=== PATIENT | female | born 1985 | race African-American/Black ===

== ENCOUNTER 2018-11-28 23:09 | Emergency (ER) | payer BC ==
[2018-11-29 00:17] LABS: Absolute Lymphocytes (CBC) 1.3 K/uL (0.7-4.9); Absolute Monocytes 0.5 K/uL (0.1-1.3); Absolute Neutrophil 4.5 K/uL (1.8-8.0); Basophils % 0.6 % (0-1.3); Eosinophils % 0.7 % (0-4.4); Hematocrit 40.5 % (36.0-45.0); Lymphocytes % 20.6 % (15.3-44.8); MPV 9.7 fL (7.6-11.3); Monocytes % 8.2 % (3.3-12.3); RBC Red Blood Cell Count 4.93 M/uL (3.86-4.86)
[2018-11-29] MEDS ORDERED: NA CHLORIDE 0.9% 1,000 ML ONE (00:27)
[2018-11-29] MEDS ORDERED: PROMETHAZINE 25 MG/ML VIAL ONE (00:27)
[2018-11-29 00:34] LABS: ALT/SGPT 16 U/L (12-78); AST/SGOT 13 U/L (15-37); Albumin 3.6 g/dL (3.4-5.0); Alkaline Phosphatase 60 U/L (45-117); BUN Blood Urea Nitrogen 14 mg/dL (7-18); Bicarbonate 25 mmol/L (21-32); Bilirubin Direct 0.1 mg/dL (0-0.2); Bilirubin Total 0.3 mg/dL (0.2-1.0); Glucose Level 61 mg/dL (74-106); Lipase 134 U/L (73-393); Potassium 4.2 mmol/L (3.5-5.1); Protein, Total 7.3 g/dL (6.4-8.2); Sodium Level 142 mmol/L (136-145)
[2018-11-29] MEDS ORDERED: KETOROLAC 30 MG/ML INJ ONE (00:49)
[2018-11-29 00:51] LABS: Urine Blood NEGATIVE (NEG); Urine Glucose NEGATIVE (NEG); Urine Protein TRACE (NEG); Urine Specific Gravity 1.015 (1.005-1.030); Urine pH 7.5 (5.0-7.0)
[2018-11-29 00:52] LABS: Urine Culture Reflex Order NOT NEEDED
[2018-11-29 00:53] LABS: Urine Amorphous Sediment 2+ /HPF (NONE SEEN); Urine Bacteria 20-50 /HPF (<20); Urine RBC <5 /HPF (NONE SEEN)
--- NOTE | 2018-11-29 01:22 | EDPHYS ---
Physician Documentation [facility] Name: Yolis Whiteside Age: 32 yrs Sex: Female : 1985 Arrival Date: 11/28/2018 Time: 23:12 Bed 8 Private MD: ED Physician Eugene Monterroso HPI: 11/28 23:50 This 32 yrs old Black Female presents to ER via Ambulatory with complaints of Vomiting. snw 23:50 The patient presents to the emergency department with nausea, vomiting, abdominal pain, snw of the left lower quadrant. Onset: The symptoms/episode began/occurred suddenly, last night. Possible causes: unknown. The symptoms are aggravated by nothing. The symptoms are alleviated by nothing. Associated signs and symptoms: Pertinent positives: abdominal pain, fever, nausea, vomiting. Severity of symptoms: At their worst the symptoms were moderate in the emergency department the symptoms are unchanged. The patient has not experienced similar symptoms in the past. The patient has not recently seen a physician. LMP 2 weeks ago. 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 - Social history:: Smoking status: Patient uses tobacco products, vapes, Patient uses alcohol, occasionally. - Ebola Screening: : No symptoms or risks identified at this time. ROS: 23:51 Constitutional: Negative for fever, chills, and weight loss, Eyes: Negative for injury, snw pain, redness, and discharge, ENT: Negative for injury, pain, and discharge, Neck: Negative for injury, pain, and swelling, Cardiovascular: Negative for chest pain, palpitations, and edema, Respiratory: Negative for shortness of breath, cough, wheezing, and pleuritic chest pain, Back: Negative for injury and pain, : Negative for injury, bleeding, discharge, and swelling, MS/Extremity: Negative for injury and deformity, Skin: Negative for injury, rash, and discoloration, Neuro: Negative for headache, weakness, numbness, tingling, and seizure. 23:51 Abdomen/GI: Positive for abdominal pain, nausea and vomiting, of the left lower quadrant. Exam: 23:52 Constitutional: This is a well developed, well nourished patient who is awake, alert, snw and in no acute distress. Head/Face: Normocephalic, atraumatic. Eyes: Pupils equal round and reactive to light, extra-ocular motions intact. Lids and lashes normal. Conjunctiva and sclera are non-icteric and not injected. Cornea within normal limits. Periorbital areas with no swelling, redness, or edema. ENT: Nares patent. No nasal discharge, no septal abnormalities noted. Tympanic membranes are normal and external auditory canals are clear. Oropharynx with no redness, swelling, or masses, exudates, or evidence of obstruction, uvula midline. Mucous membranes moist. Neck: Trachea midline, no thyromegaly or masses palpated, and no cervical lymphadenopathy. Supple, full range of motion without nuchal rigidity, or vertebral point tenderness. No Meningismus. Chest/axilla: Normal chest wall appearance and motion. Nontender with no deformity. No lesions are appreciated. Cardiovascular: Regular rate and rhythm with a normal S1 and S2. No gallops, murmurs, or rubs. Normal PMI, no JVD. No pulse deficits. Respiratory: Lungs have equal breath sounds bilaterally, clear to auscultation and percussion. No rales, rhonchi or wheezes noted. No increased work of breathing, no retractions or nasal flaring. Back: No spinal tenderness. No costovertebral tenderness. Full range of motion. Skin: Warm, dry with normal turgor. Normal color with no rashes, no lesions, and no evidence of cellulitis. MS/ Extremity: Pulses equal, no cyanosis. Neurovascular intact. Full, normal range of motion. Neuro: Awake and alert, GCS 15, oriented to person, place, time, and situation. Cranial nerves II-XII grossly intact. Motor strength 5/5 in all extremities. Sensory grossly intact. Cerebellar exam normal. Normal gait. Psych: Awake, alert, with orientation to person, place and time. Behavior, mood, and affect are within normal limits. 23:52 Abdomen/GI: Inspection: abdomen appears normal, Bowel sounds: normal, Palpation: mild abdominal tenderness, in the left lower quadrant. Vital Signs: 23:41 BP 112 / 77; Pulse 75; Resp 16 S; Temp 97.9(O); Pulse Ox 100% on R/A; Weight 54.43 kg bb (R); Height 5 ft. 7 in. (170.18 cm) (R); Pain 0/10; 11/29 00:30 BP 103 / 78; Pulse 62; Resp 14 S; Temp 97.8(O); Pulse Ox 100% on R/A; cc3 01:15 BP 103 / 71; Pulse 61; Resp 15 S; Temp 97.9(O); Pulse Ox 100% on R/A; cc3 11/28 23:41 Body Mass Index 18.79 (54.43 kg, 170.18 cm) bb MDM: 11/28 23:39 Patient medically screened. snw 11/29 01:24 Data reviewed: vital signs, nurses notes. Data interpreted: Pulse oximetry: on room air snw is 100 %. Interpretation: normal. Counseling: I had a detailed discussion with the patient and/or guardian regarding: the historical points, exam findings, and any diagnostic results supporting the discharge/admit diagnosis, lab results, the need for outpatient follow up, to return to the emergency department if symptoms worsen or persist or if there are any questions or concerns that arise at home. Response to treatment: the patient's symptoms have markedly improved after treatment, patient is well hydrated. Special discussion: Based on the patient's Hx, exam, and Dx evaluation, there is no indication for emergent surgery or inpatient Tx. It is understood by the patient/guardian that if the Sx's persist or worsen they need to return immediately for re-evaluation. Based on the history and exam findings, there is no indication for further emergent testing or inpatient evaluation. I discussed with the patient/guardian the need to see the primary care provider for further evaluation of the symptoms. 11/28 23:53 Order name: Basic Metabolic Panel snw 11/28 23:53 Order name: CBC with Diff snw 11/28 23:53 Order name: Creatinine for Radiology; Complete Time: 00:39 snw 11/28 23:53 Order name: Hepatic Function snw 11/28 23:53 Order name: Lipase; Complete Time: 00:39 snw 11/28 23:53 Order name: Urine Culture snw 11/28 23:53 Order name: Urine Microscopic Only; Complete Time: 01:11 snw 11/28 23:54 Order name: Basic Metabolic Panel; Complete Time: 00:39 EDMS 11/28 23:54 Order name: CBC with Automated Diff EDMS 11/28 23:54 Order name: Liver (Hepatic) Function; Complete Time: 00:39 EDMS 11/29 00:30 Order name: Urine Dipstick--Ancillary (enter results); Complete Time: 01:11 ar5 11/29 00:30 Order name: Urine --Ancillary (enter results); Complete Time: 01:11 ar5 11/28 23:53 Order name: IV Saline Lock; Complete Time: 00:09 snw 11/28 23:53 Order name: Labs collected and sent; Complete Time: 00:09 snw 11/28 23:53 Order name: Urine Test (obtain specimen); Complete Time: 00:29 snw 11/28 23:53 Order name: Urine Dipstick-Ancillary (obtain specimen); Complete Time: 00:29 snw Administered Medications: 00:15 Drug: NS 0.9% 1000 ml Route: IV; Rate: 1 bolus; Site: right antecubital; cc3 01:20 Follow up: Response: No adverse reaction; IV Status: Completed infusion; IV Intake: cc3 1000ml 00:20 Drug: Phenergan 6.25 mg Route: IVP; Site: right antecubital; cc3 01:00 Follow up: Response: No adverse reaction; Nausea is decreased cc3 00:35 Drug: TORadol 30 mg Route: IVP; Site: right antecubital; cc3 01:00 Follow up: Response: No adverse reaction; Pain is decreased; NRS 1/10 cc3 01:20 Drug: Rocephin 1 grams Route: IV; Rate: calculated rate; Site: right antecubital; cc3 01:35 Follow up: Response: No adverse reaction; IV Status: Completed infusion; IV Intake: [id number] Disposition: 11/29/18 01:22 Discharged to Home. Impression: Urinary tract infection, site not specified, Vomiting, unspecified, Volume depletion, unspecified. - Condition is Stable. - Discharge Instructions: Nausea and Vomiting, Adult, Urinary Tract Infection, Adult, Rehydration, Adult. - Prescriptions for Macrobid 100 mg Oral Capsule - take 1 capsule by ORAL route every 12 hours for 10 days; 20 capsule. promethazine 25 mg Oral Tablet - take 1 tablet by ORAL route every 6 hours As needed; 20 tablet. - Work release form, Family Work Release, Medication Reconciliation Form, Thank You Letter, Antibiotic Education, Prescription Opioid Use form. - Follow up: Private Physician; When: 2 - 3 days; Reason: Recheck today's complaints, Continuance of care, Re-evaluation by your physician. Follow up: Emergency Department; When: As needed; Reason: Worsening of condition. Signatures: Dispatcher [employer] EDAZ Beba Lawler, ELIANA-C INSURANCE CLAIM REPRESENTATIVE-Csnw Nessa Yusuf, RN RN bb Sarah El cc3 Corrections: (The following items were deleted from the chart) 01:38 01:22 11/29/2018 01:22 Discharged to Home. Impression: Urinary tract infection, site cc3 not specified; Vomiting, unspecified; Volume depletion, unspecified. Condition is Stable. Forms are Medication Reconciliation Form, Thank You Letter, Antibiotic Education, Prescription Opioid Use. Follow up: Private Physician; When: 2 - 3 days; Reason: Recheck today's complaints, Continuance of care, Re-evaluation by your physician. Follow up: Emergency Department; When: As needed; Reason: Worsening of condition. snw
--- NOTE | 2018-11-29 01:22 | ER ---
Nurse's Notes [facility] Name: Yolis Whiteside Age: 32 yrs Sex: Female : 1985 Arrival Date: 11/28/2018 Time: 23:12 Bed 8 Private MD: Diagnosis: Urinary tract infection, site not specified;Vomiting, unspecified;Volume depletion, unspecified Presentation: 11/28 23:37 Presenting complaint: Patient states: she was feeling bad last night and stayed home bb from work then tonight she went to work and was feeling very hot, dry heaving, shaking and had a headache denies fever, vomiting, diarrhea. Transition of care: patient was not received from another setting of care. Onset of symptoms was November 27, 2018. Risk Assessment: Do you want to hurt yourself or someone else? Patient reports no desire to harm self or others. Initial Sepsis Screen: Does the patient meet any 2 criteria? No. Patient's initial sepsis screen is negative. Does the patient have a suspected source of infection? No. Patient's initial sepsis screen is negative. Care prior to arrival: None. 23:37 Method Of Arrival: Ambulatory bb 23:37 Acuity: MICHAELLE 3 bb Triage Assessment: 23:57 General: Appears in no apparent distress. uncomfortable, Behavior is calm, cooperative, cc3 appropriate for age. Pain: Complains of pain in left lower quadrant. GI: Reports nausea. 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 - Social history:: Smoking status: Patient uses tobacco products, vapes, Patient uses alcohol, occasionally. - Ebola Screening: : No symptoms or risks identified at this time. Screenin:57 Abuse screen: Denies threats or abuse. Denies injuries from another. Nutritional cc3 screening: No deficits noted. Tuberculosis screening: No symptoms or risk factors identified. Fall Risk Ambulatory Aid- None/Bed Rest/Nurse Assist (0 pts). Gait- Normal/Bed Rest/Wheelchair (0 pts) Mental Status- Oriented to own ability (0 pts). Assessment: 23:57 GI: Abdomen is round non-distended. cc3 23:57 General: Appears in no apparent distress. uncomfortable, Behavior is calm, cooperative, cc3 appropriate for age. Pain: Complains of pain in left lower quadrant. Neuro: Level of Consciousness is awake, alert, obeys commands, Oriented to person, place, time, situation, Appropriate for age. Cardiovascular: Denies chest pain, Patient's skin is warm and dry. Respiratory: Airway is patent Respiratory effort is even, unlabored, Respiratory pattern is regular, symmetrical. : No signs and/or symptoms were reported regarding the genitourinary system. EENT: No signs and/or symptoms were reported regarding the EENT system. Derm: No signs and/or symptoms reported regarding the dermatologic system. Musculoskeletal: Circulation, motion, and sensation intact. Range of motion: intact in all extremities. 11/29 00:18 Reassessment: Patient appears in no apparent distress at this time. Patient and/or cc3 family updated on plan of care and expected duration. Pain level reassessed. Patient is alert, oriented x 3, equal unlabored respirations, skin warm/dry/pink. 01:35 Reassessment: Patient appears in no apparent distress at this time. Patient and/or cc3 family updated on plan of care and expected duration. Pain level reassessed. Patient is alert, oriented x 3, equal unlabored respirations, skin warm/dry/pink. SIGN MAKER Beba discharged the patient home with prescription given. IV cannula removed and patient left ER vitally stable and ambulatory with her fiance. Patient denies pain at this time. Patient states feeling better. Patient states symptoms have improved. Vital Signs: 11/28 23:41 BP 112 / 77; Pulse 75; Resp 16 S; Temp 97.9(O); Pulse Ox 100% on R/A; Weight 54.43 kg bb (R); Height 5 ft. 7 in. (170.18 cm) (R); Pain 0/10; 11/29 00:30 BP 103 / 78; Pulse 62; Resp 14 S; Temp 97.8(O); Pulse Ox 100% on R/A; cc3 01:15 BP 103 / 71; Pulse 61; Resp 15 S; Temp 97.9(O); Pulse Ox 100% on R/A; cc3 11/28 23:41 Body Mass Index 18.79 (54.43 kg, 170.18 cm) bb ED Course: 11/28 23:12 Patient arrived in ED. es 23:39 Beba Lawler [facility]C [facility]. snw 23:39 Eugene Monterroso MD is Attending Physician. snw 23:40 Triage completed. bb 23:41 Arm band placed on Patient placed in an exam room, on a stretcher, on pulse oximetry. bb 23:57 Sarah El is Primary Nurse. cc3 23:57 Patient has correct armband on for positive identification. Placed in gown. Bed in low cc3 position. Call light in reach. Side rails up X 1. engine monitor on. Pulse ox on. NIBP on. 06 00:05 Inserted saline lock: 20 gauge in right antecubital area, using aseptic technique. cc3 Blood collected. 01:35 No provider procedures requiring assistance completed. IV discontinued, intact, cc3 bleeding controlled, No redness/swelling at site. Pressure dressing applied. Administered Medications: 00:15 Drug: NS 0.9% 1000 ml Route: IV; Rate: 1 bolus; Site: right antecubital; cc3 01:20 Follow up: Response: No adverse reaction; IV Status: Completed infusion; IV Intake: cc3 1000ml 00:20 Drug: Phenergan 6.25 mg Route: IVP; Site: right antecubital; cc3 01:00 Follow up: Response: No adverse reaction; Nausea is decreased cc3 00:35 Drug: TORadol 30 mg Route: IVP; Site: right antecubital; cc3 01:00 Follow up: Response: No adverse reaction; Pain is decreased; NRS 1/10 cc3 01:20 Drug: Rocephin 1 grams Route: IV; Rate: calculated rate; Site: right antecubital; cc3 01:35 Follow up: Response: No adverse reaction; IV Status: Completed infusion; IV Intake: [id number] Intake: 01:20 IV: 1000ml; Total: 1000ml. cc3 01:35 IV: 10ml; Total: 1010ml. cc3 Outcome: 01:22 Discharge ordered by . snw 01:35 Discharged to home ambulatory, with fiance cc3 01:35 Condition: stable 01:35 Discharge instructions given to patient, Instructed on discharge instructions, follow up and referral plans. medication usage, Demonstrated understanding of instructions, follow-up care, medications, Prescriptions given X 2. 01:38 Patient left the ED. cc3 Signatures: Beba Lawler, PLATE GRINDER-C PLATE GRINDER-Csnw Bia Garcia Brenda, RN RN Sarah Oneal cc3
[2018-11-29] MEDS ORDERED: CEFTRIAXONE/SWI 1gm 1 GM/10 ML SYR ONE (01:32)
== END 2018-11-29 01:38 | disposition home or self-care (01) ==
LOC: ER 23:09
DX: N39.0 Urinary tract infection, site not specified (principal); E86.9 Volume depletion, unspecified; R11.2 Nausea with vomiting, unspecified; Z72.0 Tobacco use
CPT/HCPCS: 36415; 80048; 80076; 81003; 81015; 81025; 83690; 85025; 87086; 87088; 96361; 96374; 96375; 99284; J0696; J2550; J7030

== ENCOUNTER 2019-06-13 08:53 | Emergency (ER) | payer BC ==
--- OUTSIDE RECORDS SUMMARY | 2019-06-13 08:55 | XMS REPORT ---
:1985 [facility] Address [address] [place] [address] [address] [place] [address] Care Team Providers Name Role Phone Unavailable Unavailable Unavailable Problems This patient has no known problems. Allergies, Adverse Reactions, Alerts This patient has no known allergies or adverse reactions. Medications This patient has no known medications.
[2019-06-13 09:34] LABS: Absolute Lymphocytes (CBC) 2.1 K/uL (0.7-4.9); Basophils % 0.7 % (0-1.3); Hematocrit 39.1 % (36.0-45.0); Lymphocytes % 25.9 % (15.3-44.8); MPV 9.3 fL (7.6-11.3)
[2019-06-13 09:54] LABS: Urine Blood 3+ (NEG); Urine Glucose NEGATIVE (NEG); Urine Protein 1+ (NEG); Urine Specific Gravity 1.025 (1.005-1.030); Urine pH 6.5 (5.0-7.0)
[2019-06-13 10:08] LABS: Urine Bacteria 20-50 /HPF (<20)
[2019-06-13 10:09] LABS: Urine Culture Reflex Order REFLEXED
[2019-06-13 10:11] LABS: BUN Blood Urea Nitrogen 12 mg/dL (7-18); Bicarbonate 24 mmol/L (21-32); Glucose Level 86 mg/dL (74-106); HCG, Quantitative 54135 mIU/mL (1-3); Potassium 3.5 mmol/L (3.5-5.1); Sodium Level 136 mmol/L (136-145)
[2019-06-13 10:18] LABS: Urine Mucus 2+ /HPF (NONE SEEN)
--- NOTE | 2019-06-13 10:52 | ER ---
Nurse's Notes [facility] Name: Yolis Whiteside Age: 33 yrs Sex: Female : 1985 Arrival Date: 06/13/2019 Time: 08:54 Bed 14 Private MD: Diagnosis: Threatened ;11 weeks gestation of Presentation: 06/13 09:00 Presenting complaint: Patient states: Light spotting with pink tinge. Denies pain. rb1 Transition of care: patient was not received from another setting of care. Risk Assessment: Do you want to hurt yourself or someone else? Patient reports no desire to harm self or others. Care prior to arrival: None. 09:00 Method Of Arrival: Ambulatory rb1 09: Acuity: MICHAELLE 3 rb1 09:00 Initial Sepsis Screen: Does the patient meet any 2 criteria? No. Patient's initial rb1 sepsis screen is negative. Does the patient have a suspected source of infection? No. Patient's initial sepsis screen is negative. 09:00 Onset of symptoms was June 13, 2019 at 08:30. rb1 Triage Assessment: 09:00 General: Appears uncomfortable, Behavior is calm, cooperative, Denies fever. Pain: rb1 Denies pain. Neuro: Level of Consciousness is awake, alert, obeys commands, Oriented to person, place, time, situation. Cardiovascular: Capillary refill < 3 seconds is brisk in bilateral fingers. Respiratory: Airway is patent Respiratory effort is even, unlabored, Respiratory pattern is regular, symmetrical. GI: No signs and/or symptoms were reported involving the gastrointestinal system. : Reports vaginal bleeding that is light flow, spotty, pink tinge. Derm: Skin is dry, Skin is normal, Skin temperature is warm. 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 - Social history:: Smoking status: Patient uses tobacco products, Vapes. - Ebola Screening: : Patient negative for fever greater than or equal to 101.5 degrees Fahrenheit, and additional compatible Ebola Virus Disease symptoms. Screenin:00 Abuse screen: Denies threats or abuse. Nutritional screening: No deficits noted. rb1 Tuberculosis screening: No symptoms or risk factors identified. Fall Risk None identified. Assessment: 09:00 General: Pt. reports this is her sixth and has miscarried each time.. rb1 10:00 Reassessment: Patient appears in no apparent distress at this time. No changes from rb1 previously documented assessment. 11:00 Reassessment: Patient appears in no apparent distress at this time. Patient and/or rb1 family updated on plan of care and expected duration. Pain level reassessed. Patient is alert, oriented x 3, equal unlabored respirations, skin warm/dry/pink. Patient denies pain at this time. Vital Signs: 09:00 BP 102 / 82; Pulse 89; Resp 15; Temp 97.8(O); Pulse Ox 99% on R/A; Weight 56.7 kg (R); rb1 Height 5 ft. 7 in. (170.18 cm) (R); Pain 0/10; 11:06 BP 103 / 67; Pulse 66; Resp 15; Temp 98.2(O); Pulse Ox 97% on R/A; mh5 09:00 Body Mass Index 19.58 (56.70 kg, 170.18 cm) rb1 Vitals: 11:06 Heart Tones . iw ED Course: 08:54 Patient arrived in ED. as 08:59 Juliane Kerr, RN is Primary Nurse. iw 08:59 Sulema Grimes FNP-C is PHCP. kb 08:59 Jean Garland MD is Attending Physician. kb 09:00 Arm band placed on left wrist. rb1 09:00 Patient has correct armband on for positive identification. Placed in gown. Bed in low rb1 position. Call light in reach. Side rails up X 1. Pulse ox on. NIBP on. Warm blanket given. 09:13 Triage completed. rb1 09:25 Inserted saline lock: 22 gauge in right antecubital area, using aseptic technique. rb1 Blood collected. 10:41 Ultrasound completed. Patient tolerated well. sg3 10:43 US Transvaginal Ob In Process Unspecified. EDMS 11:16 No provider procedures requiring assistance completed. IV discontinued, intact, rb1 bleeding controlled, No redness/swelling at site. Pressure dressing applied. Administered Medications: No medications were administered Outcome: 10:51 Discharge ordered by . sher 11:16 Discharged to home ambulatory, with family. rb1 11:16 Condition: stable 11:16 Discharge instructions given to patient, Instructed on discharge instructions, follow up and referral plans. Demonstrated understanding of instructions, follow-up care, Prescriptions given X none 11:17 Patient left the ED. rb1 Signatures: Dispatcher [employer] EDKS Sulema Grimes, DONALDO MONROY-Lulu Casarez Irene, RN RN Laurie Gayle RN RN rb1 Lyla Burch 5 Doreen Huang 3 Corrections: (The following items were deleted from the chart) 09:37 09:00 Social history: Smoking status: Patient/guardian denies using tobacco, rb1 rb1
--- NOTE | 2019-06-13 10:52 | EDPHYS ---
Physician Documentation [facility] Name: Yolis Whitseide Age: 33 yrs Sex: Female : 1985 Arrival Date: 06/13/2019 Time: 08:54 Bed 14 Private MD: ED Physician Jean Garland HPI: 06/13 11:18 This 33 yrs old Black Female presents to ER via Ambulatory with complaints of Vaginal kb Bleeding, + Preg <12wks. 11:18 The patient presents to the emergency department with vaginal bleeding, that is light. kb The estimated gestational age is 11 weeks. course: care: private OB physician. The patient has not experienced similar symptoms in the past. The patient has not recently seen a physician. 11:29 Previous pregnancies: in previous pregnancies patient has had. Associated signs and kb symptoms: Pertinent positives: vaginal bleeding, Pertinent negatives: abdominal pain, vaginal discharge. Pt reports vaginal bleeding this morning. Reports this is her sixth or seventh and all of the previous pregnancies have ended in spontaneous . . 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 - Social history:: Smoking status: Patient uses tobacco products, Vapes. - Ebola Screening: : Patient negative for fever greater than or equal to 101.5 degrees Fahrenheit, and additional compatible Ebola Virus Disease symptoms. ROS: 11:17 Constitutional: Negative for fever, chills, and weight loss, ENT: Negative for injury, kb pain, and discharge, Neck: Negative for injury, pain, and swelling, Cardiovascular: Negative for chest pain, palpitations, and edema, Respiratory: Negative for shortness of breath, cough, wheezing, and pleuritic chest pain, Abdomen/GI: Negative for abdominal pain, nausea, vomiting, diarrhea, and constipation, Back: Negative for injury and pain, MS/Extremity: Negative for injury and deformity, Skin: Negative for injury, rash, and discoloration, Neuro: Negative for headache, weakness, numbness, tingling, and seizure. 11:17 : Positive for vaginal bleeding. Exam: 11:17 Constitutional: This is a well developed, well nourished patient who is awake, alert, kb and in no acute distress. Head/Face: Normocephalic, atraumatic. ENT: Nares patent. No nasal discharge, no septal abnormalities noted. Tympanic membranes are normal and external auditory canals are clear. Oropharynx with no redness, swelling, or masses, exudates, or evidence of obstruction, uvula midline. Mucous membranes moist. Neck: Trachea midline, no thyromegaly or masses palpated, and no cervical lymphadenopathy. Supple, full range of motion without nuchal rigidity, or vertebral point tenderness. No Meningismus. Chest/axilla: Normal chest wall appearance and motion. Nontender with no deformity. No lesions are appreciated. Cardiovascular: Regular rate and rhythm with a normal S1 and S2. No gallops, murmurs, or rubs. Normal PMI, no JVD. No pulse deficits. Respiratory: Lungs have equal breath sounds bilaterally, clear to auscultation and percussion. No rales, rhonchi or wheezes noted. No increased work of breathing, no retractions or nasal flaring. Abdomen/GI: Soft, non-tender, with normal bowel sounds. No distension or tympany. No guarding or rebound. No evidence of tenderness throughout. Back: No spinal tenderness. No costovertebral tenderness. Full range of motion. Skin: Warm, dry with normal turgor. Normal color with no rashes, no lesions, and no evidence of cellulitis. MS/ Extremity: Pulses equal, no cyanosis. Neurovascular intact. Full, normal range of motion. Neuro: Awake and alert, GCS 15, oriented to person, place, time, and situation. Cranial nerves II-XII grossly intact. Motor strength 5/5 in all extremities. Sensory grossly intact. Cerebellar exam normal. Normal gait. Vital Signs: 09:00 BP 102 / 82; Pulse 89; Resp 15; Temp 97.8(O); Pulse Ox 99% on R/A; Weight 56.7 kg (R); rb1 Height 5 ft. 7 in. (170.18 cm) (R); Pain 0/10; 11:06 BP 103 / 67; Pulse 66; Resp 15; Temp 98.2(O); Pulse Ox 97% on R/A; mh5 09:00 Body Mass Index 19.58 (56.70 kg, 170.18 cm) rb1 MDM: 08:59 Patient medically screened. kb 11:16 Data reviewed: vital signs, nurses notes. Data interpreted: Pulse oximetry: on room air kb is 97 %. Interpretation: normal. Counseling: I had a detailed discussion with the patient and/or guardian regarding: the historical points, exam findings, and any diagnostic results supporting the discharge/admit diagnosis, lab results, radiology results, the need for outpatient follow up, an OB/Gyne specialist, to return to the emergency department if symptoms worsen or persist or if there are any questions or concerns that arise at home. 06/13 09:03 Order name: Quantitative Hcg; Complete Time: 10:16 kb 06/13 09:03 Order name: Abo/rh Typing; Complete Time: 10:07 kb 06/13 09:03 Order name: Basic Metabolic Panel; Complete Time: 10:16 kb 06/13 09:03 Order name: CBC with Diff; Complete Time: 09:39 kb 06/13 09:18 Order name: Urine Microscopic Only; Complete Time: 10:19 kb 06/13 09:19 Order name: Urine Dipstick--Ancillary (enter results); Complete Time: 09:58 kb 06/13 09:03 Order name: Urine Test (obtain specimen); Complete Time: 09:35 kb 06/13 09:03 Order name: IV Saline Lock; Complete Time: 09:34 kb 06/13 09:03 Order name: Labs collected and sent; Complete Time: 09:34 kb 06/13 09:03 Order name: NPO; Complete Time: 09:35 kb 06/13 09:19 Order name: US Transvaginal Ob kb 06/13 09:19 Order name: Urine --Ancillary (enter results); Complete Time: 09:58 kb 06/13 10:10 Order name: Urine Culture EDMS 06/13 10:14 Order name: ABO/RH no charge; Complete Time: 10:16 EDMS 06/13 09:03 Order name: Urine Dipstick-Ancillary (obtain specimen); Complete Time: 09:35 kb Administered Medications: No medications were administered Disposition: 06/13/19 10:51 Discharged to Home. Impression: Threatened , 11 weeks gestation of . - Condition is Stable. - Discharge Instructions: Vaginal Bleeding During , First Trimester, First Trimester of , [id number], Threatened Miscarriage, [id number]. - Medication Reconciliation Form, Thank You Letter, Antibiotic Education, Prescription Opioid Use, Work release form form. - Follow up: Emergency Department; When: As needed; Reason: Worsening of condition. Follow up: Private Physician; When: 2 - 3 days; Reason: Recheck today's complaints, Continuance of care, Re-evaluation by your physician. Addendum: 06/15/2019 10:16 Co-signature as Attending Physician, Jena Garland MD I agree with the assessment and c singleton plan of care. Signatures: Dispatcher [employer] EDSulema Guerin, SHIPS EQUIPMENT ENGINEER-C SHIPS EQUIPMENT ENGINEER-Jean Dumas MD MD cha Barber, Rebecca, RN RN rb1 Corrections: (The following items were deleted from the chart) 06/13 09:37 09:00 Social history: Smoking status: Patient/guardian denies using tobacco, rb1 rb1 11:17 10:51 06/13/2019 10:51 Discharged to Home. Impression: Threatened ; 11 weeks rb1 gestation of . Condition is Stable. Forms are Medication Reconciliation Form, Thank You Letter, Antibiotic Education, Prescription Opioid Use. Follow up: Emergency Department; When: As needed; Reason: Worsening of condition. Follow up: Private Physician; When: 2 - 3 days; Reason: Recheck today's complaints, Continuance of care, Re-evaluation by your physician. kb 11:32 11:29 Pt reports vaginal bleeding this morning. kb kb
--- NOTE | 2019-06-13 11:18 | RAD REPORT ---
EXAM DESCRIPTION: US - Transvaginal OB - 06/13/2019 10:42 am CLINICAL HISTORY: VAGINAL BLEEDING COMPARISON: No comparisons FINDINGS: A single gestational sac is seen within the uterus. The shape of the sac is within normal limits for gestational age. Within the sac is a single pole with crown-rump length of 4.5 cm, c orrelating to estimated gestational age of 11 weeks 0 days. Estimated date of delivery is 01/02/2020. Heart rate is 169 BPM. The placenta is not yet developed due to early gestational age. The maternal adnexa and ovaries are within normal limits. 3.5 cm right ovarian corpus luteal cyst. No rmal Doppler blood flow was demonstrated to both ovaries. IMPRESSION: Single live early intrauterine gestation with estimated gestational age of 11 weeks 0 da ys, ELY 01/02/2020.
[2019-06-13 11:32] VITALS: BP 103/67; TEMP 98.2; O2SAT 97
== END 2019-06-13 11:17 | disposition home or self-care (01) ==
LOC: ER 08:53
DX: O20.0 Threatened abortion (principal); Z3A.11 11 weeks gestation of pregnancy; F17.290 Nicotine dependence, other tobacco product, uncomplicated
CPT/HCPCS: 36415; 76817; 80048; 81003; 81015; 81025; 84702; 85025; 86900; 86901; 87086; 87088; 99284

== ENCOUNTER 2019-11-20 21:10 | Emergency (ER) | payer BC ==
--- OUTSIDE RECORDS SUMMARY | 2019-11-20 21:13 | XMS REPORT ---
:[address] [facility] t Address [address] [place] [address] Care Team Providers Name Role Phone Francis BOOKER, Gaston Attending Clinician Problems This patient has no known problems. Allergies, Adverse Reactions, Alerts This patient has no known allergies or adverse reactions. Medications This patient has no known medications. Procedures This patient has no known procedures. Encounters Start End Encounter Admission Attending Care Care Encounter Source Date/Time Date/Time Type Type Clinicians Facility Department ID 2019-11-18 2019-11-18 Telephone Bonita Blanco [id number] 00:00:00 00:00:00 Gaston Bonilla [id number] [place] [id number] Profess[facility] [phone] nal 134 Building 2019-11-18 2019-11-18 Telephone Bonita Blanco [id number] 00:00:00 00:00:00 Gaston Bonilla [id number] [place] [id number] Professio [phone] nal 134 [facility] Results This patient has no known results.
--- OUTSIDE RECORDS SUMMARY | 2019-11-20 21:14 | XMS REPORT | Summary of Care ---
:1985 Author Organization [facility] Address [address] [place] [address] Care Team Providers Name Role Phone Chadd Goncalves Primary Care Provider Reason for Referral Radiology Services (STAT) Status Reason Specialty Diagnoses / Referred By Referred To Procedures Contact Contact New Request Diagnostic Diagnoses Abdominal pain, right upper quadrant Vanaphan, Radiology Procedures US ABDOMEN COMPLETE CARRIE Garcia [address] [place] [address] Reason for Visit Reason Comments Abdominal Pain Encounter Details Date Type Department Care Team Description 09/29/2019 Telemedicine Visit [facility] Women's Radha Nichols , Abdominal pain, Healthcare- CARRIE right upper [place] [address] (Primary [address]) [address] [place] [phone] Allergies No Known Allergiesdocumented as of this encounter (statuses as of 09/29/2019) Medications Medication Sig Dispensed Refills Start Date End Date Status HNS90-gars Take 1 Dose by 60 Each 8 06/01/2019 Act pedro carb,tjj-KD-zfs-dha mouth daily. 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) 35 mg iron-1 mg -50 mg-300 mg combo pack aspirin 81 mg EC Take 1 tablet by 30 tablet 8 06/16/2019 Active tabletIndications: mouth daily. Supervision of high risk in first trimester doxylamine-pyridoxine, Take 1 tablet by 120 tablet 3 9 Active vit B6, (DICLEGIS) mouth 10-10 mg per SEE-INSTRUCTIONS. tabletIndications: Nausea and vomiting during prior to 22 weeks gestation documented as of this encounter (statuses as of 09/29/2019) Active Problems Problem Noted Date Supervision of high-risk with history of abo rtion in second 08/27/2019 trimester History of spontaneous 06/01/2019 Nausea and vomiting during prior to 22 weeks gestation 06/01/2019 Estimated Date of Delivery Comments Yes 12/29/2019 Based on last menstr ual period of 03/24/2019 (Exact Date) documented as of this encounter (statuses as of 09/29/2019) Resolved Problems Problem Noted Date Resolved Date Threatened , antepartum 06/15/2019 08/27/19 20 BV (bacterial vaginosis) 06/15/2019 07/02/2019 Supervision of high risk in first trimester 201808/27/2019 22 weeks gestation of 06/01/2019 09/18/19 20 documented as of this encounter (statuses as of 09/29/2019) Immunizations Name Administration Dates Next Due Influenza Virus Vaccine Quad .5 mL IM 6+ MO 06/01/2019 06/01/2020 documented as of this encounter Social History Tobacco Use Types Packs/Day Years Used Date Never Smoker Smokeless Tobacco: Current User Comments: Vapes Alcohol Use Drinks/Week oz/Week Comments Not Currently Estimated Date of Delivery Comments Yes 12/29/2019 Based on last menstr ual period of 03/24/2019 (Exact Date) Sex Assigned at Date Recorded Not on file Job Start Date Occupation Industry Not on file Not on file Not on file Travel History Travel Start Travel End No recent travel history available. documented as of this encounter Last Filed Vital Signs Not on filedocumented in this encounter Progress Notes Radha Nichols PA-C - 09/29/2019 1:15 PM CDT TELEHEALTH NOTE -conducted OV via telehealth due to covid-19 crisis- Verbal consent obtained from Patient: Yolis Fisher Stevo for telehealth services provided below. Communication with patient was conducted via Telephone. Location of Patient: Home Location of Provider: Clinic Date of Service: 09/29/2019 Chief Complaint: routine visit HPI: Yolis Whiteside is a 33 year old female here for follow-up after ER visit at [facility] last night.. Denies contractions, vaginal bleeding, LOF, dysuria, or PIH symptoms. + active FM.Patient had C/o RUQ pain, underneath right breast, pain has worsened since last OV. Patient reportspain is radiating to her back. 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 Patient's is concerned and is requesting for a letter to put her on bed rest. Explained to we cannot put her on bed rest but put her on some work restrictions. Can leave letter for work in her my chart. Past Medical History: Diagnosis Date BV (bacterial vaginosis) 06/15/2019 Depression Supervision of high risk in first trimester 06/01/2019 MEDICATIONS: No outpatient medications have been marked as taking for the 09/29/19 encounter (Telemedicine Visit) with Radha Nichols PA-C. ROS Denies fever, chills, chest pain, SOB, constipation, diarrhea, nausea, vomiting. +RUQ abd pain radiating to her back. Pain score: 10/10 TELEHEALTH EXAM Alert and answering/asking questions appropriately ASSESSMENT/ PLAN Yolis Whiteside is a 33 year old female with PMH as above presenting with: 1. Abdominal pain, right upper quadrant - US ABDOMEN COMPLETE; Future Ordered stat. ER PRECAUTIONS GIVEN. See ob summary Discussed about COVID-19/flu precautions. Social distancing, frequent hand washings, and to follow CDC recommendations discussed. Indications for testing discussed. Plan of care, desired health behaviors, goals, Ddx, and any prescribed medications were discussed with the patient. I spent 25 minute(s) conducting this Telehealth encounter with the patient. Education resources and self- management tools were provided is the AVS which is accessible through Runte[employer]. Patient/guardian/family verbalized understanding and agrees to the plan of care. Barriers to care:None. Ability to manage care: Good. If applicable, the [place] [employer] database was accessed to review any controlled substance prescription claims data. If the patient is taking prescribed medications, the [employer] prescription claims data in SkillSlate was reviewed to assess patient compliance with the medication treatment plan After visit summary (AVS ) documentation will be available through Runte[employer] for this encounter. Radha Nichols PA-C 09/29/2019 2:43 PM documented in this encounter Plan of Treatment Date Type Specialty Care Team Description 09/29/2019 Appointment Radiology Radha Nichols PA-C [address] [place] [phone] 10/20/2019 Routine Visit Obstetrics & Blanco, Bonita Feldman MD Gynecology [address] [place] [address]. [facility] [address] [place], [place] [address] Name Type Priority Associated Diagnoses Order S chedule US ABDOMEN COMPLETE IMAGING STAT Abdominal pain, right Expected: 09/29/2019, upper quadrant Expires: 08/31 Health Maintenance Due Date Last Done Comments DTaP,Tdap,and Td Vaccines (1 12/18/1998 - Tdap) PAP SMEAR 06/01/2022 06/01/2019, 03/25/2009 INFLUENZA VACCINE Completed 06/01/2019 PNEUMOCOCCAL 0-64 YEARS Aged Out No longe r eligible based COMBINED SERIES on patient's age to complete this to pic documented as of this encounter Results Not on filedocumented in this encounter Visit Diagnoses Diagnosis Abdominal pain, right upper quadrant - P rimary documented in this encounter Insurance Payer Benefit Plan Subscriber ID Effective Dates Phone Address Type / Group [facility] [id number] 2017-Mali [phone] [address] PPO/POS [place] [employer] t [id number] [place] [address] documented as of this encounter
--- OUTSIDE RECORDS SUMMARY | 2019-11-20 21:14 | XMS REPORT | Summary of Care ---
:1985 Author Organization [facility] Address [address] [place] [address] Care Team Providers Name Role Phone Chadd Goncalves Primary Care Provider Reason for Referral Radiology Services (STAT) Status Reason Specialty Diagnoses / Referred By Referred To Procedures Contact Contact New Request Diagnostic Diagnoses Abdominal pain, right upper quadrant Vanaphan, Radiology Procedures US ABDOMEN COMPLETE CARRIE Garcia [address] [place] [address] Reason for Visit Reason Comments Abdominal Pain Encounter Details Date Type Department Care Team Description 09/29/2019 Telemedicine Visit [facility] Women's Radha Nichols , Abdominal pain, Healthcare- CARRIE right upper [place] [address] ([address]) [address] [place] [phone] Allergies No Known Allergiesdocumented as of this encounter (statuses as of 09/29/2019) Medications Medication Sig Dispensed Refills Start Date End Date Status [id number] Take 1 Dose by 60 Each 8 06/01/2019 Act pedro carb,pjg-PK-ord-dha mouth daily. 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) 35 mg iron-1 [...] here for follow-up [facility].. Denies contractions, vaginal bleeding, LOF, dysuria, or PIH symptoms. + active FM.Patient had C/o RUQ pain, underneath right breast, pain has worsened since last OV. Patient reportspain is radiating to her back. 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 Patient's is concerned and is requesting for [...] is the AVS which is accessible through MoboTap. Patient/guardian/family verbalized understanding and agrees to the plan of care. Barriers to care:None. Ability to manage care: Good. If applicable, the [place] [employer] database was accessed to review any controlled substance prescription claims data. If the patient is taking prescribed medications, the [employer] prescription claims data in Beta Dash was reviewed to assess patient compliance with the medication treatment plan After visit summary (AVS ) documentation will be available through MoboTap for this encounter. Radha Nichols PA-C 09/29/2019 2:43 PM documented in this encounter Plan of Treatment Date Type Specialty Care Team Description 10/20/2019 Routine Obstetrics & Blanco, Bonita Feldman MD Visit Gynecology [address] [place] [address] [address] [place], [place] [address] [phone] Name Type Priority Associated Diagnoses Order S [...] on patient's age to complete this to [facility] documented as of this encounter Results Not on filedocumented in this encounter Visit Diagnoses Diagnosis Abdominal pain, right upper quadrant - P rimary documented in this encounter Insurance Payer Benefit Plan Subscriber ID Effective Dates Phone Address Type / Group [facility] [employer] [id number] 2017-Mali [phone] [address] PPO/POS [place] SELECT t [id number] [place] [address] documented as of this encounter
--- OUTSIDE RECORDS SUMMARY | 2019-11-20 21:14 | XMS REPORT | Summary of Care ---
:1985 Author Organization [facility] Address [address] [place] [address] Care Team Providers Name Role Phone Ivanna Chadd Primary Care Provider Reason for Referral Radiology Services (STAT) Status Reason Specialty Diagnoses / Referred By Referred To Procedures Contact Contact Closed Diagnostic Diagnoses Abdominal pain, right upper quadrant Radha Nichols, Radiology Procedures US ABDOMEN COMPLETE PA-C [address] [address] Reason for Visit Radiology Services (STAT) Status Reason Specialty Diagnoses / Referred By Referred To Procedures Contact Contact Closed Diagnostic Diagnoses Abdominal pain, right upper quadrant Radha Nichols, Radiology Procedures US ABDOMEN COMPLETE PA-C [address] [address] Encounter Details Date Type Department Care Team Description 09/29/2019 Hospital Encounter On license of [facility] Rosi Nichols y, Bari Rae Ultrasound PA-C [address] [place] [address] [phone] [place] [address] Allergies No Known Allergiesdocumented as of this encounter (statuses as of 09/30/2019) Medications Medication Sig Dispensed Refills Start Date End Date Status [id number] Take 1 Dose by 60 Each 8 06/01/2019 Act pedro carb,xgi-MD-vpa-dha mouth daily. 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) 35 mg iron-1 [...] as of this encounter (statuses as of 09/30/2019) Active Problems Problem Noted Date Supervision of high-risk with history of abo rtion in second 08/27/2019 trimester History of spontaneous 06/01/2019 Nausea and vomiting during prior to 22 weeks gestation 06/01/2019 Estimated Date of Delivery Comments Yes 12/29/2019 Based on last menstr ual period of 03/24/2019 (Exact Date) documented as of this encounter (statuses as of 09/30/2019) Resolved Problems Problem Noted Date Resolved Date Threatened , antepartum 06/15/2019 08/27/19 20 BV (bacterial vaginosis) 06/15/2019 07/02/2019 Supervision of high risk in first trimester 201808/27/2019 22 weeks gestation of 06/01/2019 09/18/19 20 documented as of this encounter (statuses as of 09/30/2019) Immunizations Name Administration Dates Next Due Influenza [...] Signs Not on filedocumented in this encounter Plan of Treatment Date Type Specialty Care Team Description 10/20/2019 Routine Obstetrics & Blanoc, Bonita Feldman MD Visit Gynecology [address] [place] [address] DR. Wheat [place], [facility] 15 [phone] Health Maintenance Due Date Last Done Comments DTaP,Tdap,and Td Vaccines (1 12/18/1998 - Tdap) PAP SMEAR 06/01/2022 06/01/2019, 03/25/2009 INFLUENZA VACCINE Completed 06/01/2019 PNEUMOCOCCAL 0-64 YEARS Aged Out No longe r eligible based COMBINED SERIES on patient's age to complete this to [facility] documented as of this encounter Procedures Procedure Name Priority Date/Time Associated Diagnosis Comme nts US ABDOMEN COMPLETE STAT 09/29/2019 4:59 PM Abdominal pain , Results for this CDT right upper quadrant procedu re are in the results section. documented in this encounter Results US ABDOMEN COMPLETE (09/29/2019 4:59 PM CDT) Specimen Narrative Performed At HISTORY: Right upper quadrant Abdominal pain. PACS/VR/DOSE TECHNIQUE: Upper abdominal organs were e valuated in multiple planes with the patient in multiple different positi ons, without and with color imaging. FINDINGS: Liver is 16.1 cm, spleen is not visualized, right kidney is 11.4 x 6.0 x 5.4 cm and left kidney is 9.8 x 5.6 x 4.8 cm in size. No focal lesions are detected in these organs. Cortex of both k idneys range between 18 mm and 19 mm. No hydronephrosis, free fluid in the upper abdomen or aortic aneurysm detected. Visualized por tions of the pancreas appear normal. Hepatic and portal venous system appear patent, with hepatopetal portal flow noted. Gallbladder appears to be of normal size and shape with no edema or thickening of the mishra. Biliary sludge and several biliary crystals are seen in the gallbladder lumen. No definite gallstone i s confirmed. Common hepatic duct is 4.2 mm. CONCLUSIONS: 1. Biliary sludge and biliary crystals d etected in the gallbladder lumen which could be secondary to an d/or a sign of dysfunctioning gallbladder. No signs of acute cholecyst itis. 2. Spleen is either absent or very small in size and could not be visualized by ultrasound. Procedure Note [facility], Radiant Results Inft User - 2019 5:04 PM CDT HISTORY: Right upper quadrant Abdominal pain. TECHNIQUE: Upper abdominal organs were e valuated in multiple planes with the patient in multiple different positi ons, without and with color imaging. FINDINGS: Liver is 16.1 cm, spleen is no t visualized, right kidney is 11.4 x 6.0 x 5.4 cm and left kidney is 9.8 x 5.6 x 4.8 cm in size. No focal lesions are detected in these organs. Co rtex of both kidneys range between 18 mm and 19 mm. No hydronephrosis, free fluid in the upper abdomen or aortic aneurysm detected. Visualized por tions of the pancreas appear normal. Hepatic and portal venous system appear patent, with hepatopetal portal flow noted. Gallbladder appears to be of normal size and shape with no edema or thickening of the mishra. Biliary sludge and several biliary crystals are seen in the gallbladder lumen. No defini te gallstone is confirmed. Common hepatic duct is 4.2 mm. CONCLUSIONS: 1. Biliary sludge and biliary crystals d etected in the gallbladder lumen which could be secondary to an d/or a sign of dysfunctioning gallbladder. No signs of acute cholecyst itis. 2. Spleen is either absent or very small in size and could not be visualized by ultrasound. Performing Organization Address City/State/Zipcode Phone Number PACS/VR/DOSE documented in this encounter Visit Diagnoses Diagnosis Abdominal pain, right upper quadrant documented in this encounter Insurance Payer Benefit Plan Subscriber ID Effective Dates Phone Address Type / Group [facility] zkipster [id number] 2017-Mali [phone] [address] PPO/POS [place] [employer] t 7 [id number] [place] [address] documented as of this encounter
--- OUTSIDE RECORDS SUMMARY | 2019-11-20 21:15 | XMS REPORT | Summary of Care ---
:[address] [facility] Address [address] [place] [address] Care Team Providers Name Role Phone Chadd Goncalves Primary Care Provider Reason for Visit Reason Comments Referral/consult Encounter Details Date Type Department Care Team Description 09/30/2019 Telephone ACCESS CENTER Radha Nichols PA-C Referral/consult [address] [facility] [address] [place] [address] [place] [address] [place] [address] Allergies No Known Allergiesdocumented as of this encounter (statuses as of 09/30/2019) Medications Medication Sig Dispensed Refills Start Date End Date Status [id number] Take 1 Dose by 60 Each 8 06/01/2019 Act pedro carb,krl-VW-cuw-dha mouth daily. 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) 35 mg iron-1 [...] & Blanco, Bonita Feldman MD Visit Gynecology [address] [place] [address] DR. Wheat [place] [id number] 15 [phone] Health Maintenance Due Date Last Done Comments DTaP,Tdap,and Td Vaccines (1 12/18/1998 - Tdap) PAP SMEAR 06/01/2022 06/01/2019, 03/25/2009 INFLUENZA VACCINE Completed 06/01/2019 PNEUMOCOCCAL 0-64 YEARS Aged Out No longe r eligible based COMBINED SERIES on patient's age to complete this to pic documented as of this encounter Results Not on filedocumented in this encounter Insurance Payer Benefit Plan Subscriber ID Effective Dates Phone Address Type / Group [facility] [employer] [id number] 2017-Mali [phone] [address] PPO/POS [place] [employer] t 7 [id number] [place] [address] documented as of this encounter
--- OUTSIDE RECORDS SUMMARY | 2019-11-20 21:15 | XMS REPORT | Summary of Care ---
:1985 Author Organization [facility] Address [address] [place] [address] Care Team Providers Name Role Phone Goncalves Chadd Primary Care Provider Reason for Visit Reason Comments Abdominal Pain (JOSH) Status Reason Specialty Diagnoses / Referred By Referred To Procedures Contact Contact Authorized Surgery Diagnoses Abdominal pain, right upper quadrant Biliary sludge determined by ultrasound 27 weeks gestation of Radha Nichosl, Neelam Samuels, Procedures CONSULT/REFERRAL GENERAL SURGERY Preferred Location: ([facility]) [facility] [address] [place] [address] [address] [place] [address] Phone: Fax: Encounter Details Date Type Department Care Team Description 10/01/2019 Telemedicine Visit [facility] Surgical Lore Samuels ighalie upper quadrant abdominal pain (Primary Dx); Specialties - MD Neelam Biliary sludge; [address] and not yet deliver ed in third trimester [address] [place] [address], [address] [place] [id number] Allergies No Known Allergiesdocumented as of this encounter (statuses as of 10/05/2019) Medications Medication Sig Dispensed Refills Start Date End Date Status [id number]-rjtj Take 1 Dose by 60 Each 8 06/01/2019 Act pedro carb,kto-JZ-pcx-dha mouth daily. 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) 35 mg iron-1 [...] as of this encounter (statuses as of 10/05/2019) Active Problems Problem Noted Date Supervision of high-risk with history of abo rtion in second 08/27/2019 trimester History of spontaneous 06/01/2019 Nausea and vomiting during prior to 22 weeks gestation 06/01/2019 Estimated Date of Delivery Comments Yes 12/29/2019 Based on last menstr ual period of 03/24/2019 (Exact Date) documented as of this encounter (statuses as of 10/05/2019) Resolved Problems Problem Noted Date Resolved Date Threatened , antepartum 06/15/2019 08/27/19 20 BV (bacterial vaginosis) 06/15/2019 07/02/2019 Supervision of high risk in first trimester 201808/27/2019 22 weeks gestation of 06/01/2019 09/18/19 20 documented as of this encounter (statuses as of 10/05/2019) Immunizations Name Administration Dates Next Due Influenza [...] on filedocumented in this encounter Progress Notes Neelam Samuels MD - 10/01/2019 2:45 PM CDT GENERAL SURGERY TELEHEALTH CLINIC NOTE Verbal consent obtained from Patient: Yolis Whiteside for telehealth services provided below. Communication with patient was conducted via Telephone. Location of Patient: Home Location of Provider: [facility] Date of Service: 10/01/2019 Reason for Visit / Chief Complaint: RUQ pain History of Present Illness: Yolis Whiteside is a 33 year old female 7 months , withPMHx as below who presents for evaluation due to RUQ abdominal pain. She complains of intermittent pain below her right breast, sometimes but not always associated with meals, happens every day, it is sharp, colicky, and it radiates around her side to her back. The pain lasts for approximately 2 hours, after which it usually resolves spontaneously. She has tried oral medications with no improvement in symptoms. Associated with nausea and dry heaving. She is currently able to tolerate an oral diet. The patient's diet consists mostly of sandwiches with wheat bread, but is trying to stay away from fast foods. Abdominal US showed biliary sludge and biliary crystals, but no evidence of acute cholecystitis. Past Medical History: Past Medical History: Diagnosis Date BV (bacterial vaginosis) 06/15/2019 Depression Supervision of high risk in first trimester 06/01/2019 Past Surgical History: No past surgical history on file. Allergies: No Known Allergies Medications: Patient's Medications START taking these medications No medications on file CONTINUE taking these medications which have NOT CHANGED ASPIRIN 81 MG EC TABLET Take 1 tablet by mouth daily. DOXYLAMINE-PYRIDOXINE, VIT B6, (DICLEGIS) 10-10 MG PER TABLET Take 1 tablet by mouth SEE-INSTRUCTIONS. [id number]-OQWB CARB,CQK-TO-LES-DHA 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) 35 MG IRON-1 MG -50 MG-300 MG COMBO PACK Take1 Dose by mouth daily. START taking Modified Medications as Prescribed No medications on file STOP taking these medications No medications on file Current Outpatient Medications Medication Sig Dispense Refill aspirin 81 mg EC tablet Take 1 tablet by mouth daily. 30 tablet 8 doxylamine-pyridoxine, vit B6, (DICLEGIS) 10-10 mg per tablet Take 1 tablet by mouth SEE-INSTRUCTIONS. 120 tablet 3 IVM11-zztu carb,btv-CH-kzz-dha 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) 35 mg iron-1 mg -50 mg- 300 mg combo pack Take1 Dose by mouth daily. 60 Each 8 No current facility-administered medications for this visit. Family History: Family History Problem Relation Age of Onset Arthritis Mother Hypertension Father Neurological Father CVA Arthritis Brother Arthritis Maternal Grandmother High cholesterol Maternal Grandmother Asthma NoFHx defects NoFHx Genetic NoFHx Breast Cancer NoFHx Colon Cancer NoFHx Ovarian Cancer NoFHx Uterine Cancer NoFHx Cancer NoFHx Depression NoFHx Psychiatry NoFHx Diabetes NoFHx Heart NoFHx Mental retardation NoFHx Osteoporosis NoFHx Social History: Social History Socioeconomic History Marital status: Spouse name: Not on file Number of children: Not on file Years of education: Not on file Highest education level: Not on file Occupational History Not on file Social Needs Financial resource strain: Not on file Food insecurity: Worry: Not on file Inability: Not on file Transportation needs: Medical: Not on file Non-medical: Not on file Tobacco Use Smoking status: Never Smoker Smokeless tobacco: Current User Tobacco comment: Vapes Substance and Sexual Activity Alcohol use: Not Currently Drug use: Never Sexual activity: Yes Partners: Male control/protection: None Lifestyle Physical activity: Days per week: Not on file Minutes per session: Not on file Stress: Not on file Relationships Social connections: Talks on phone: Not on file Gets together: Not on file Attends amish service: Not on file Active member of club or organization: Not on file Attends meetings of clubs or organizations: Not on file Relationship status: Not on file Intimate partner violence: Fear of current or ex partner: Not on file Emotionally abused: Not on file Physically abused: Not on file Forced sexual activity: Not on file Other Topics Concern Not on file Social History Narrative Yarsani preference - Sikhism No exposure to cats Denies domestic violence or abuse Review of Systems: A 14 point ROS was obtained, only positive responses are in BOLD Constitutional: Fever, chills, loss of appetite, fatigue, unexplained weight loss, unexplained weight gain, weakness Head/Ears/Nose/Mouth/Throat: Head: Headache, head injury, neck pain, neck stiffness Ears: Ear discharge, hearing loss, ear pain, tinnitus Nose: Nose bleeds, sinus congestion, runny nose, postnasal drip, sneezing, sinus pressure Mouth: Dental problems, mouth sores, sore tongue, dry mouth Throat: Sore throat, trouble swallowing, voice change Eyes: Discharge, itching, pain, redness, pain, vision disturbance, blurred vision, vision loss, cataracts, glaucoma CV: Chest pain, palpitations, arrhythmias, dyspnea on exertion, othopnea, claudication, edema, coronary artery disease/history of CA Respiratory: Cough, sputum production, hemoptysis, wheezing, shortness of breath, sleep apnea GI: Dysphagia, abdominal pain, abdominal distention, indigestion, nausea, vomiting, diarrhea, constipation, hematemesis, blood in stool or dark stool, rectal bleeding, rectal pain, jaundice : Frequency, urgency, pain or burning with urination, flank pain, hematuria, incontinence, change in urinary stream, discharge, bleeding, pelvic pain, irregular menses Musculoskeletal: Muscle pain, joint pain, joint swelling, back pain, stiffness, weakness, limitationof motion, arthritis, trauma Integumentary/Breast: Integumentary: Rash, itching, pigmented lesions, lumps, tenderness, swelling, wound Breast: Pain, lumps, nipple discharge, skin changes Neurological: Weakness, sensory changes, syncope, seizures, headache, numbness, tingling, tremor, trauma Hematologic/Lymphatic: Hematologic: Bleeding tendency, easy bruising, history of blood clots, anticoagulation/antiplatelet therapy Lymphatic: Lymphadenopathy Endocrine: Polyuria, polydipsia, polyphagia, heat or cold intolerance, hair loss, appetite changes Allergic/Immunologic: Allergic: Allergic reactions Immunologic: Recurrent infections Psychiatric: Agitation, confusion, decreased concentration, hallucinations, anxiety, self-injury, sleep disturbance, suicidal ideation TELEHEALTH Exam: An examination was not performed over the telephone Constitutional: Awake, alert, oriented, in no acute distress Psychiatric: Appropriate mood and affect, no obvious deficits of insight or judgment Labs: CBC WBC x10^3 (/CMM) Date Value 03/25/2009 6.1 WBC (10*3/L) Date Value 06/09/2019 8.00 RBC x10^6 (/CMM) Date Value 03/25/2009 5.01 RBC (10*6/L) Date Value 06/09/2019 4.97 PLT x10^3 (/CMM) Date Value 03/25/2009 156 PLT (10*3/L) Date Value 06/09/2019 171 HGB Date Value 06/09/2019 13.2 g/dL 03/25/2009 13.3 G/DL HCT (%) Date Value 06/09/2019 41.4 03/25/2009 41.0 BMP No results found for: NA, K, CA, CL, BUN, CREAT, GLU, TCO2 Hepatic Function Panel No results found for: ALB, TPRO, BILIT, BILIUNCON, BILICONJ, ALT, AST, ALKPHOS Microbiology: There are no current results on file for these tests and/or test for 1 year. There are no current results on file for these tests and/or test for 1 year. Radiology: No results found for this visit on 10/01/19. Assessment: Yolis Whiteside is a 33 year old female, 7 months , with signs and symptoms consistent with biliary colic. Plan: - Will obtain further labs (CMP, CBC). Will contact patient with results once available. - Recommend limiting greasy, spicy foods - Can take OTC Tylenol for pain - Recommend elective laparoscopic cholecystectomy after delivery, with dietary modifications to control symptoms for now. Will provide patient with hand-out for diet recommendations. - Advised patient to present to ED if she develops fever, persistent abdominal pain, intractable nausea/vomiting. After visit summary (AVS ) documentation will be available through [email or web address] for this encounter. A total of 30 minutes was spent on the Telephone with the patient. Riley Calloway MD General Surgery PGY-2 Attending Attestation: I personally evaluated and examined the patient on 10/01/[address] Pedraza's note as written. I actively participated in the decision-making process. Please see the resident's note for additional details. 33 YEAR-OLD F approximately 28 weeks referred by CRUTCHING [employer]OR for abdominal pain. She reports "pain under my right breast". The pain is sharp in nature and radiates around to her back. She reports the pain can occur after eating and she is frequently nauseated with the pain. She isable to eat without vomiting. She had an U/S done which demonstrated biliary sludge with crystals within the gallbladder without cholecystitis. Labs were not obtained. Recommend obtaining CBC and CMP and initiating a low fat diet. The patient will get her labs done tomorrow and cigar packer and picker low fat diet recommendations from my office. I would prefer to manage her nonoperatively with dietary changes duringthe remainder of her , then consider cholecystectomy after delivery. If her symptoms persist to where she is unable to eat or if she develops cholecystitis, then will consider surgery. Neelam Samuels M.D. 10/05/2019 14:34 documented in this encounter Plan of Treatment Date Type Specialty Care Team Description 10/20/2019 Routine Obstetrics & Blanco, Bonita Feldman MD Visit Gynecology [address] [place] [address] DR. Wheat [place], [place] [address] [phone] Health Maintenance Due Date Last Done Comments DTaP,Tdap,and Td Vaccines (1 12/18/1998 - Tdap) PAP SMEAR 06/01/2022 06/01/2019, 03/25/2009 INFLUENZA VACCINE Completed 06/01/2019 PNEUMOCOCCAL 0-64 YEARS Aged Out No longe r eligible based COMBINED SERIES on patient's age to complete this to [facility] documented as of this encounter Results COMP. METABOLIC PANEL (80011) (10/02/2019 9:43 AM CDT) Pathologist Sig nature NA 137 135 - 145 mmol/L [facility] K 4.0 3.5 - 5.0 mmol/L [facility] CL 103 98 - 108 mmol/L [facility] CO2 TOTAL 25 23 - 31 mmol/L [facility] AGAP 9 2 - 16 [facility] BUN 15 7 - 23 mg/dL [facility] GLUCOSE 101 70 - 110 mg/dL [facility] CREATININE 0.54 0.50 - 1.04 [facility] mg/dL [facility] TOTAL BILI 0.1 0.1 - 1.1 mg/dL [facility] CALCIUM 9.4 8.6 - 10.6 mg/dL [facility] T PROTEIN 6.4 6.3 - 8.2 g/dL [facility] ALBUMIN 3.7 3.5 - 5.0 g/dL [facility] ALK PHOS 40 34 - 122 U/L [facility] ALTv 34 5 - 35 U/L [facility] AST(SGOT) 30 13 - 40 U/L [facility] eGFR Calculation 131.7 mL/min/1.73m2 [facility] (Non-) [facility] Y eGFR Calculation 159.6 mL/min/1.73m2 [facility] () [facility] Specimen Blood Narrative Performed At Association of Glomerular Filtration Rate (GFR) [facility] and Staging of Kidney Disease* + + +- + | GFR (mL/min/1.73 m2) | With Kidney Damage | Without Kidney Damage + + +- + | >90 | Stage one | Normal + + +- + | 60-89 | Stage two | Decreased GFR + + +- + | 30-59 | Stage three | Stage three + + +- + | 15-29 | Stage four | Stage four + + +- + | <15 (or dialysis) | Stage five | Stage five + + +- + *Each stage assumes the associated GFR level has been in effect for at least three months. Stages 1 to 5, with or without kidney disease, indicate chronic kidney disease. Notes: Determination of stages one and two (with eGFR >59mL/min/1.73 m2) requires estimation of kidney damage for at least three months as defined by structural or functional abnormalities of the kidney, manifested by either: Pathological abnormalities or Markers of kidney damage (including abnormalities in the composition of the blood or urine or abnormalities in imaging tests). Performing Organization Address City/State/Zipcode Phone Number [facility] CLIA: [id number], [address] [place], [place] [address] [facility] documented in this encounter Visit Diagnoses Diagnosis Right upper quadrant abdominal pain - Pr imary Abdominal pain, right upper quadrant Biliary sludge Other specified disorders of biliary tra ct and not yet delivered in third trimester documented in this encounter Insurance Payer Benefit Plan Subscriber ID Effective Dates Phone Address Type / Group [id number] 2017-Mali [phone] [address] PPO/POS [place] [employer] t 7 [id number] [place] [address] documented as of this encounter
--- OUTSIDE RECORDS SUMMARY | 2019-11-20 21:15 | XMS REPORT | Summary of Care ---
:1985 Author Organization [facility] Address [address] [place] [address] Care Team Providers Name Role Phone Chadd Goncalves Primary Care Provider Reason for Referral (JOSH) Status Reason Specialty Diagnoses / Referred By Referred To Procedures Contact Contact New Request Surgery Diagnoses Abdominal pain, right upper quadrant Biliary sludge determined by ultrasound 27 weeks gestation of Radha Nichols Humphrey, [place], Procedures CONSULT/REFERRAL GENERAL SURGERY Preferred Location: (chance) CARRIE BOOKER [address] [place] [address] 2240 [facility] [address] [place] [address] Phone: Fax: Reason for Visit Reason Comments Abdominal Pain Encounter Details Date Type Department Care Team Description 09/30/2019 Case Management [facility] Radha Nichols A bdominal Pain [facility] [place] PA-C [address] [place] [address], [facility] [address] [place] [address] [address] [place] [address] Allergies No Known Allergiesdocumented as of this encounter (statuses as of 09/30/2019) Medications Medication Sig Dispensed Refills Start Date End Date Status [id number] Take 1 Dose by 60 Each 8 06/01/2019 Act pedro carb,fap-UM-unr-dha mouth daily. 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) 35 mg iron-1 [...] Feldman MD Visit Gynecology [address] [place] [address] [address]. Wheat [place] [id number] 15 [phone] Health Maintenance Due Date Last Done Comments [...] pain, right upper quadrant - P rimary Biliary sludge determined by ultrasound 27 weeks gestation of state, incidental documented in this encounter Insurance Payer Benefit Plan Subscriber ID Effective Dates Phone Address Type / Group [facility] [id number] 2017-Mali [phone] [address] PPO/POS [facility] t 7 [id number] [place] [address] documented as of this encounter
--- OUTSIDE RECORDS SUMMARY | 2019-11-20 21:15 | XMS REPORT | Summary of Care ---
:1985 Author Organization [facility] Address [address] [place] [address] Care Team Providers Name Role Phone Chadd Goncalves Primary Care Provider Reason for Visit Reason Comments LAB Encounter Details Date Type Department Care Team Description 10/02/2019 Job Analysis Manager Visit [facility] Mayuri Samuels MD [address] [facility] [address] [place] [address] Supervision of high-risk with history of in second trimester; Professional Office 2, Adc Lab Right upper quadrant abdominal pain Building Phlebotomy Lab Professional Office Building [address] [facility] , [address] [place] [address] Allergies No Known Allergiesdocumented as of this encounter (statuses as of 10/02/2019) Medications Medication Sig Dispensed Refills Start Date End Date Status ALX32-eput Take 1 Dose by 60 Each 8 06/01/2019 Act pedro carb,rff-BA-aov-dha mouth daily. 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) 35 mg iron-1 [...] as of this encounter (statuses as of 10/02/2019) Active Problems Problem Noted Date Supervision of high-risk with history of abo rtion in second 08/27/2019 trimester History of spontaneous 06/01/2019 Nausea and vomiting during prior to 22 weeks gestation 06/01/2019 Estimated Date of Delivery Comments Yes 12/29/2019 Based on last menstr ual period of 03/24/2019 (Exact Date) documented as of this encounter (statuses as of 10/02/2019) Resolved Problems Problem Noted Date Resolved Date Threatened , antepartum 06/15/2019 08/27/19 20 BV (bacterial vaginosis) 06/15/2019 07/02/2019 Supervision of high risk in first trimester 201808/27/2019 22 weeks gestation of 06/01/2019 09/18/19 20 documented as of this encounter (statuses as of 10/02/2019) Immunizations Name Administration Dates Next Due Influenza [...] & Blanco, Bonita Feldman MD Visit Gynecology [address] [place] [address] [address] Wheat [place] [address] 15 [phone] Name Type Priority Associated Diagnoses Order S chedule CBC WITH DIFFERENTIAL LAB Routine Right upper quadran t Ordered: 10/02/2019 abdominal pain CBC WITH DIFFERENTIAL LAB Routine Supervision of high -risk Ordered: 10/02/2019 with history of in second trimester Health Maintenance Due Date Last Done Comments DTaP,Tdap,and Td Vaccines (1 12/18/1998 - Tdap) PAP SMEAR 06/01/2022 06/01/2019, 03/25/2009 INFLUENZA VACCINE Completed 06/01/2019 PNEUMOCOCCAL 0-64 YEARS Aged Out No longe r eligible based COMBINED SERIES on patient's age to complete this to [facility] documented as of this encounter Results Not on filedocumented in this encounter Visit Diagnoses Diagnosis Supervision of high-risk with history of in second trimester Right upper quadrant abdominal pain Abdominal pain, right upper quadrant documented in this encounter Insurance Payer Benefit Plan Subscriber ID Effective Dates Phone Address Type / Group [facility] [id number] 2017-Mali [phone] [address] PPO/POS [place] [employer] t 7 [id number] [place] [address] documented as of this encounter
--- OUTSIDE RECORDS SUMMARY | 2019-11-20 21:15 | XMS REPORT | Summary of Care ---
:1985 Author Organization [facility] Address [address] [place] [address] Care Team Providers Name Role Phone Chadd Goncalves Primary Care Provider Reason for Visit Reason Comments LAB Encounter Details Date Type Department Care Team Description 10/02/2019 Submarine Advisory Team Watch Officer Visit [facility] Mayuri Samuels MD [address] [facility] [address] [place] [address] Supervision of high-risk with history of in second trimester; Professional Office 2, Adc Lab Right upper quadrant abdominal pain Building Phlebotomy Lab Professional Office Building [address] [facility] , [address] [place] [address] Allergies No Known Allergiesdocumented as of this encounter (statuses as of 10/02/2019) Medications Medication Sig Dispensed Refills Start Date End Date Status EXS02-lyig Take 1 Dose by 60 Each 8 06/01/2019 Act pedro carb,yku-GK-suy-dha mouth daily. 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) 35 mg iron-1 [...] & Blanco, Bonita Feldman MD Visit Gynecology [address] [place] [address] [address]. Wheat [place] [address] 15 [phone] Name Type Priority Associated Diagnoses Order S [...] on patient's age to complete this to [facility] documented as of this encounter Results Not on filedocumented in this encounter Visit Diagnoses Diagnosis Supervision of high-risk with history of in second trimester Right upper quadrant abdominal pain Abdominal pain, right upper quadrant documented in this encounter Insurance Payer Benefit Plan Subscriber ID Effective Dates Phone Address Type / Group [facility] [id number] 2017-Mali [phone] [address] PPO/POS [place] [employer] t [id number] [place] [address] documented as of this encounter
--- OUTSIDE RECORDS SUMMARY | 2019-11-20 21:16 | XMS REPORT | Summary of Care ---
:1985 Author Organization [facility] Address [address] [place] [address] Care Team Providers Name Role Phone Ivanna Chadd Primary Care Provider Reason for Visit Reason Comments Assessment Encounter Details Date Type Department Care Team Description 11/18/2019 Telephone [place] [facility] Bonita Blanco MD Assessment Healthcare- [address], Suite [facility] 20 8 208 [place] [address] [place] [address] [phone] Allergies No Known Allergiesdocumented as of this encounter (statuses as of 11/18/2019) Medications Medication Sig Dispensed Refills Start Date End Date Status [id number]-eabs Take 1 Dose by 60 Each 8 06/01/2019 Act pedro carb,see-UD-jff-dha mouth daily. 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) 35 mg iron-1 [...] as of this encounter (statuses as of 11/18/2019) Active Problems Problem Noted Date Supervision of high-risk with history of abo rtion in third 08/27/2019 trimester History of spontaneous 06/01/2019 Nausea and vomiting during prior to 22 weeks gestation 06/01/2019 Estimated Date of Delivery Comments Yes 12/29/2019 Based on last menstr ual period of 03/24/2019 (Exact Date) documented as of this encounter (statuses as of 11/18/2019) Resolved Problems Problem Noted Date Resolved Date Threatened , antepartum 06/15/2019 08/27/19 20 BV (bacterial vaginosis) 06/15/2019 07/02/2019 Supervision of high risk in first trimester 201808/27/2019 22 weeks gestation of 06/01/2019 09/18/19 20 documented as of this encounter (statuses as of 11/18/2019) Immunizations Name Administration Dates Next Due Influenza Virus Vaccine Quad .5 mL IM 6+ MO 06/01/2019 06/01/2020 TDAP (ADACEL) VACCINE 10/20/2019 documented as of this encounter Social History [...] Travel End No recent travel history available. COVID-19 Exposure Response Date Recorded In the last month, have you been in contact with No / Unsure 11/06/2019 10:56 AM CDT someone who was confirmed or suspected to have Coronavirus / COVID-19? documented as of this encounter Last Filed Vital Signs Not on filedocumented in this encounter Plan of Treatment Date Type Specialty Care Team Description 11/25/2019 Routine Obstetrics & Blanco, Bonita Feldman MD Visit Gynecology [address] [place] [address] [address]. Wheat [place] [address] 15 [phone] Health Maintenance Due Date Last Done Comments PAP SMEAR 06/01/2022 06/01/2019, 03/25/2009 DTaP,Tdap,and Td Vaccines (2 10/19/2029 10/20/2019 - Td) INFLUENZA VACCINE Completed 06/01/2019 PNEUMOCOCCAL 0-64 YEARS Aged Out No longe r eligible based COMBINED SERIES on patient's age to complete this to pic documented as of this encounter Results Not on filedocumented in this encounter Insurance Payer Benefit Plan Subscriber ID Effective Dates Phone Address Type / Group [facility] [id number] 2017-Mali [phone] [address] PPO/POS [place] [employer] t 7 [id number] [place] [address] documented as of this encounter
--- OUTSIDE RECORDS SUMMARY | 2019-11-20 21:16 | XMS REPORT | Summary of Care ---
:1985 Author Organization [facility] Address [address] [place] [address] Care Team Providers Name Role Phone Ivanna Chadd Primary Care Provider Reason for Visit Reason Comments Assessment Encounter Details Date Type Department Care Team Description 11/18/[address] [facility] Bonita Blanco MD Assessment Healthcare- [address], Suite [facility] 20 8 [address] [place] [address] [place] [address] [phone] Allergies No Known Allergiesdocumented as of this encounter (statuses as of 11/18/2019) Medications Medication Sig Dispensed Refills Start Date End Date Status [id number]-plly Take 1 Dose by 60 Each 8 06/01/2019 Act pedro carb,svd-UE-zop-dha mouth daily. 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 Wheat [place] [address] 15 [phone] Health Maintenance Due Date Last Done Comments [...] Effective Dates Phone Address Type / Group [facility] [id number] 2017-Mali [phone] [address] PPO/POS [place] [employer] t 7 [id number] [place] [address] documented as of this encounter
--- OUTSIDE RECORDS SUMMARY | 2019-11-20 21:16 | XMS REPORT | Summary of Care ---
:1985 Author Organization [facility] Address [address] [place] [address] Care Team Providers Name Role Phone Chadd Goncalves Primary Care Provider Reason for Visit Reason Comments ROUTINE VISIT Encounter Details Date Type Department Care Team Description 11/06/2019 Routine [facility] Radha Nichols, Supervision of high-risk with history of in third trimester (Primary Dx); Visit Healthcare- PA-C 32 weeks gestation of [address], [address] [place] [address] [phone] Allergies No Known Allergiesdocumented as of this encounter (statuses as of 11/06/2019) Medications Medication Sig Dispensed Refills Start Date End Date Status [id number] Take 1 Dose by 60 Each 8 06/01/2019 Act pedro carb,yqr-IU-edt-dha mouth daily. 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) 35 mg iron-1 [...] as of this encounter (statuses as of 11/06/2019) Active Problems Problem Noted Date Supervision of high-risk with history of abo rtion in third 08/27/2019 trimester History of spontaneous 06/01/2019 Nausea and vomiting during prior to 22 weeks gestation 06/01/2019 Estimated Date of Delivery Comments Yes 12/29/2019 Based on last menstr ual period of 03/24/2019 (Exact Date) documented as of this encounter (statuses as of 11/06/2019) Resolved Problems Problem Noted Date Resolved Date Threatened , antepartum 06/15/2019 08/27/19 20 BV (bacterial vaginosis) 06/15/2019 07/02/2019 Supervision of high risk in first trimester 201808/27/2019 22 weeks gestation of 06/01/2019 09/18/19 20 documented as of this encounter (statuses as of 11/06/2019) Immunizations Name Administration Dates Next Due Influenza [...] of this encounter Last Filed Vital Signs Vital Sign Reading Time Taken Comments Blood Pressure 100/66 11/06/2019 11:17 AM CDT Pulse 74 11/06/2019 11:17 AM CDT Temperature 36.8 C (98.3 F) 11/06/2019 11:17 AM CDT Respiratory Rate 18 11/06/2019 11:17 AM CDT Oxygen Saturation - - Inhaled Oxygen Concentration - - Weight 70.3 kg (155 lb) 11/06/2019 11:17 AM CDT Height 170.2 cm (5' 7") 11/06/2019 11:17 AM CDT Body Mass Index 24.28 11/06/2019 11:17 AM CDT documented in this encounter Patient Instructions Patient InstructionsShilpa Vickers MA - 11/06/2019 11:15 AM CDT Patient Education Comfort Tips During Talk with yourhealthcare provider before using pain-relieving medicine at any time during your . First trimester tips Nausea Get up slowly. Eat a few unsalted crackers before you get out of bed. Avoid smells that bother you. Eat smallbland low fat, light high-protein meals at frequent intervals. Sip on water, weaktea, or clear soft drinks, like angelica nisreen.Eat ice chips. Fatigue Take catnaps when you can. Get regular exercise. Accept help from others. Practice good sleep habits, like going to bed and getting up at the same time each day. Use your bed only for sleep and sex. Mood swings Talk about your feelings with others, including other mothers. Limit sugar, chocolate, and caffeine. Eat a healthy diet. Dont skip meals. Get regular exercise. Headaches Get fresh air and exercise. Relax and get enough rest. Check with your healthcare provider before taking any pain medicines. Second trimester tips Here are some suggestions to help you cope: To limit ankle swelling, sit with your feet raised or wear support hose. If you have pain in your groin and stomach(round ligament pain), avoid sudden twisting movements. For leg cramps, flexing your foot often brings immediate relief. You also may try massaging your calf in long, downward strokes, or stretching your legs before going to bed. Get enough exercise and wear shoes with flexible soles. Third trimester tips Reducing heartburn Eat small, light meals throughout the day rather than 3 large ones. Sleep with your upper body raised 6 inches. Dont lie down until 2 hours after you eat. Don't eat greasy, fried, or spicy foods. Avoid citrus fruits and juices. Treating constipation Eat foods high in fiber (whole-grain foods, fresh fruit and vegetables). Drink plenty of water. Get regular exercise. Discuss other medicines (like docusate and psyllium) with your healthcare provider. Taking care of your breasts Avoid using harsh soaps or alcohol, which can cause excessive dryness. Wear nursing bras. They provide more support than regular bras and can be used after ifyou breastfeed. Getting a good nights sleep Take a warm shower before bed. Sleep on a firm mattress. Lie on your side with 1 leg crossed over the other. Use pillows to support arms, legs, and belly. Jerardo last reviewed this educational content on 03/31/201719998661-4545 [employer]. [address] [place] [address]. All rights reserved. This information is not intended as a substitute for professional medical care. Always follow your healthcare professional's instructions. Patient Education Pelvic Pain in : Unclear (23 Trimester) You are well into your and are having pain and pressure in your pelvic area. This is your lower belly (abdomen). Mild pelvic pressure or heaviness is very common in the latter stages of a healthy . This is due to the growing uterus (womb). Although the exact cause of your pain is not certain, it doesn't seem to be dangerous. It may be due to ligaments in your belly stretching to support your uterus as it grows. The weight of your baby may also be causing pressure and pain. Pain can be caused by the bones of your pelvis shifting as your body makes room for the baby to pass through. This is known as symphysis pubis dysfunction (SPD). SPD can cause quite a bit of pain and discomfort as the due date nears. Home care Here are general care guidelines: Don't do any strenuous activities or stand for a long time. Bed rest is not needed unless your healthcare provider has advised it. Exercise for 30 minutes all or most days of the week. This will promote muscle tone, strength, and endurance. Ask your provider what exercises to do and to avoid. Sit in a warm (not hot) bath. This helps relax tight, painful muscles. Sleep on your side with a pillow between your legs. This helps align your pelvis. Eat frequent, light meals. Choose foods that are easy to digest. Ask your healthcare provider if a support belt could help you. If told to by your healthcare provider, take an yppl-fvy-musbefc medicine, such as acetaminophen,to ease pain. Follow instructions carefully for how much to take and how often to take it. Don't take aspirin or nonsteroidal anti- inflammatory drugs (NSAIDs) such as ibuprofen unless your provider tells you to do so. Follow-up care Follow up with your healthcare provider, or as advised. When to get medical advice Call your healthcare provider right away if any of these occur: Belly pain that is sudden or that slowly gets worse Fainting, dizziness, or weakness when standing Any vaginal bleeding Fluid leaking from the vagina Baby is moving less Repeated vomiting or diarrhea Pain that seems to settle in one area, especially the lower right belly Blood in vomit or bowel movements (dark red or black color) Fever of 100.4F (38C) or higher, or as directed Volley last reviewed this educational content on 08/30/2019 [employer]. [address] [place] [address]. All rights reserved. This information is not intended as a substitute for professional medical care. Always follow your healthcare professional's instructions. Patient Education Kick Counts Its normal to worry about your babys health. One way you can knowyour babys doing well isto record the babys movements once a day. This is called a kick count.Remember to take your kick count records to all your appointments with your healthcare provider. How to count kicks Time how long it takes you to feel 10 kicks, flutters, swishes, or rolls. Ideally, you want to feel at least 10 movements within 2 hours. You will likely feel 10 movements in less time than that. Starting at 28 weeks, count your baby's movements daily. Follow your healthcare provider's instructions for kick counting. Here are tips for counting kicks: Choose a time when the baby is active, such as after a meal. Sit comfortably or lie on your side. The first time the baby moves,write downthe time. Count each movement until the baby has [id number]. This can take from 20 minutes to 2hours. If you have not felt 10 kicks by the end of the second hour, wait a few hours. Then try again. Try to do it at the same time each day. When to call your healthcare provider Call your healthcare providerright awayif: You do a couple sets of kick counts during the day and your baby moves fewer than 10times [id number] Your baby moves much less often than on thedays before. You have not felt your baby move all day. Volley last reviewed this educational content on 05/31/2017 [employer]. [address] [place] [address]. All rights reserved. This information is not intended as a substitute for professional medical care. Always follow your healthcare professional's instructions. documented in this encounter Progress Notes Radha Nichols PA-C - 11/06/2019 11:15 AM CDT Chief complaint: Chief Complaint Patient presents with ROUTINE VISIT HPI Yolis Whiteside is a 33 year old female @ 32w3d coming in for PN visit. Denies contractions, vaginal bleeding, LOF, dysuria, or PIH symptoms. + active FM. Histories OB History Para Term AB Living 6 0 0 0 5 0 SAB TAB Ectopic Multiple Live Births 5 0 0 0 0 # Outcome Date GA Lbr Thony/2nd Weight Sex Delivery Anes PTL Lv 6 Current 5 SAB 05/31/15 12w0d 4 SAB 07/01/14 12w0d 3 SAB 11/30/11 8w0d 2 SAB 07/01/11 18w0d 1 SAB 07/01/10 8w0d Obstetric Comments The first miscarriage was confirmed by provider. Patient did not see any provider for the rest of the other pregnancies and even with the 18 wks gestation; patient states that she just had heavy bleeding and knows that she miscarried. Past Medical History: Diagnosis Date BV (bacterial vaginosis) 06/15/2019 Depression Supervision of high risk in first trimester 06/01/2019 Family History Problem Relation Age of Onset Arthritis Mother Hypertension Father Neurological Father CVA Arthritis Brother Arthritis Maternal Grandmother High cholesterol Maternal Grandmother Asthma NoFHx defects NoFHx Genetic NoFHx Breast Cancer NoFHx Colon Cancer NoFHx Ovarian Cancer NoFHx Uterine Cancer NoFHx Cancer NoFHx Depression NoFHx Psychiatry NoFHx Diabetes NoFHx Heart NoFHx Mental retardation NoFHx Osteoporosis NoFHx Family Status Relation Name Status Mo Alive Fa Alive Bro (Not Specified) MGMo (Not Specified) NoFHx (Not Specified) No past surgical history on file. Social History Socioeconomic History Marital status: Spouse [...] file Gets together: Not on file Attends mosque service: Not on file Active member of [...] Concern Not on file Social History Narrative Evangelical preference - Religion No exposure to cats Denies domestic violence or abuse Social History Substance and Sexual Activity Sexual Activity Yes Partners: Male control/protection: None Labs none Radiology none Allergies Yolis has No Known Allergies. Medications Yolis has a current medication list which includes the following prescription(s): aspirin, doxylamine-pyridoxine (vit b6), and snc19-dwqf carb,icn-fx-bwb-dha. Review of Systems Constitutional: Negative for appetite change, fatigue and fever. HENT: Negative for rhinorrhea and sore throat. Eyes: Negative for pain and itching. Respiratory: Negative for cough, chest tightness and shortness of breath. Breasts: Negative for discharge, mass and pain. Cardiovascular: Negative for chest pain, palpitations and leg swelling. Gastrointestinal: Negative for abdominal pain, constipation, diarrhea and nausea. Genitourinary: Negative for bladder incontinence, dysuria, vaginal discharge, difficulty urinating, vaginal pain and pelvic pain. Musculoskeletal: Negative for gait problem and myalgias. Skin: Negative for rash. Neurological: Negative for dizziness and headaches. Psychiatric/Behavioral: Negative for suicidal ideas. The patient is not nervous/anxious. Endocrine: Negative for hair loss. LMP 03/24/2019 (Exact Date) Pregravid BMI: 19.7 Physical Exam Vitals reviewed. Constitutional: She is oriented to person, place, and time. She appears well- developed and well-nourished. Neck: No mass. No thyromegaly palpated. No neck adenopathy. Cardiovascular: Regular rate and rhythm. Pulmonary/Chest: Normal inspiratory effort. Abdominal: Abdomen is soft. No tenderness present. No hernia palpated or inspected. Neuro/Psychiatric: She has a normal mood and affect. She is oriented to person, place, and time. Skin: Skin normal. Lymphadenopathy: No neck adenopathy present. No axillary adenopathy present. No inguinal adenopathy present. Assessment/Plan SEE OB SUMMARY Return to clinic in 2 weeks. Discussed treatment options. Reviewed patient instructions and provided printed copy. Activity restrictions: As tolerated This visit did not involve counseling and coordination that comprised more than 50% of the visit time. Radha Nichols PA-C 11/06/2019 11:12 AM documented in this encounter Plan of Treatment Date Type Specialty Care Team Description 11/25/2019 Routine Obstetrics & Blanco, Bonita Feldman MD Visit Gynecology [address] [place] [address] [address]. [address] [place], [place] [address] [phone] Health Maintenance Due Date Last Done Comments PAP SMEAR 06/01/2022 06/01/2019, 03/25/2009 DTaP,Tdap,and Td Vaccines (2 10/19/2029 10/20/2019 - Td) INFLUENZA VACCINE Completed 06/01/2019 PNEUMOCOCCAL 0-64 YEARS Aged Out No longe r eligible based COMBINED SERIES on patient's age [facility] documented as of this encounter Procedures Procedure Name Priority Date/Time Associated Diagnosis Comme nts POCT URINALYSIS W/O Routine 11/06/2019 32 weeks gestation of Results for this SPECIFIC GRAVITY procedure a re in the results section . documented in this encounter Results POCT URINALYSIS W/O SPECIFIC GRAVITY (11/06/2019) Pathologist Sig nature POCT PH U n/a 5 - 8 mg/dl POCT U LEUK EST n/a Negative - Negative POCT U NIT n/a Negative - Negative POCT U PROT neg Negative - Negative POCT U GLU neg Negative - Negative POCT U KETONE n/a Negative - Negative POCT U BLD n/a Negative - Negative Specimen Urine - URINE, CLEAN CATCH documented in this encounter Visit Diagnoses Diagnosis Supervision of high-risk with history of in third trimester - Primary 32 weeks gestation of state, incidental documented in this encounter Insurance Payer Benefit Plan Subscriber ID Effective Dates Phone Address Type / Group [employer] [id number] 2017-Mali [phone] [address] PPO/POS [facility] [id number] [place] [address] documented as of this encounter
--- OUTSIDE RECORDS SUMMARY | 2019-11-20 21:16 | XMS REPORT | Summary of Care ---
:1985 Author Organization [facility] Address [address] [place] [id number] Care Team Providers Name Role Phone Goncalves Chadd Primary Care Provider Reason for Visit Reason Comments ROUTINE VISIT 30 weeks Encounter Details Date Type Department Care Team Description 10/20/2019 Routine [facility] Women's Bonita Blanco am, MD Supervision of high-risk with history of in third trimester (Primary Dx); Visit Healthcare- [address] [place] [address] 30 weeks g estation of [address], [place] [address] [address] [place] [phone] Allergies No Known Allergiesdocumented as of this encounter (statuses as of 10/20/2019) Medications Medication Sig Dispensed Refills Start Date End Date Status [id number] Take 1 Dose by 60 Each 8 06/01/2019 Act pedro carb,ivn-BX-wak-dha mouth daily. 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) 35 mg iron-1 [...] as of this encounter (statuses as of 10/20/2019) Active Problems Problem Noted Date Supervision of high-risk with history of abo rtion in third 08/27/2019 trimester History of spontaneous 06/01/2019 Nausea and vomiting during prior to 22 weeks gestation 06/01/2019 Estimated Date of Delivery Comments Yes 12/29/2019 Based on last menstr ual period of 03/24/2019 (Exact Date) documented as of this encounter (statuses as of 10/20/2019) Resolved Problems Problem Noted Date Resolved Date Threatened , antepartum 06/15/2019 08/27/19 20 BV (bacterial vaginosis) 06/15/2019 07/02/2019 Supervision of high risk in first trimester 201808/27/2019 22 weeks gestation of 06/01/2019 09/18/19 20 documented as of this encounter (statuses as of 10/20/2019) Immunizations Name Administration Dates Next Due Influenza [...] Sign Reading Time Taken Comments Blood Pressure 104/66 10/20/2019 1:04 PM CDT Pulse 88 10/20/2019 1:04 PM CDT Temperature 37 C (98.6 F) 10/20/2019 1:04 PM CDT Respiratory Rate 18 10/20/2019 1:04 PM CDT Oxygen Saturation - - Inhaled Oxygen Concentration - - Weight 70.2 kg (154 lb 12.8 oz) 10/20/2019 1:04 PM CDT Height 170.2 cm (5' 7") 10/20/2019 1:04 PM CDT Body Mass Index 24.25 10/20/2019 1:04 PM CDT documented in this encounter Patient Instructions Patient InstructionsGisell Hurley RN - 10/20/2019 1:00 PM CDT Patient Education Back Pain During : Positioning Yourself When standing, resting a foot on a low block can ease back pain. You likely position yourself differently now than you did before you were . Did you know that standing, sitting, or lying in certain ways can lead to back pain? To ease pain, use positions thatsupport your body comfortably. Tips for good posture Using good posture means holding yourself so that your spine is aligned and your muscles can work without strain. To use good posture: Raise your chest and head. Try to keep your ears lined up over your shoulders. Use your stomach muscles to pull in your stomach. This reduces the amount of weight your back must support. Keep your pelvis level. Think of your pelvis as a bowl of water that will spill if it tips too far forward or backward. Standing If you must stand for long periods, try to change positions every 15 minutes. This gives your muscles a break. When standing, also: Keep your legs slightly apart. This helps you balance your weight. Rest one foot on a book, ledge, or low stool. Every few minutes, switch legs. Wear comfortable shoes with padded soles and arch support, like athletic shoes. Sitting When sitting in a chair or car, make sure your spines lumbar curve is supported. Use a chair withlumbar support built in, or put a firm pillow against your lower back. Also try the following: Sit with your knees slightly lower than your hips. Dont cross your legs. Take deep breaths often. This helps keep your spine and stomach in the best position. Vary your activity each hour. For instance, get up from your desk and take a 5-minute walk aroundthe office. Lying down To lie safely and comfortably: Lie on your side with your knees slightly bent. This takes pressure offyour uterus and improvesblood flow to your baby. Place pillows under your abdomen and between your knees. To get out of bed, roll onto your side. Use your arms to push yourself into a seated position. Scoot to the edge of the bed and place your feet on the floor. Lean forward, then use your leg muscles to stand. Consider investing in a firm mattress. Lifting Tip to safely lift: Do not bend over from the waist to pick things upsquat down, bend your knees, and keep your back straight. [employer] last reviewed this educational content on 08/01/201719998605-7527 [employer]. [address] [place] [address]. All rights reserved. This information is not intended as a substitute for professional medical care. Always follow your healthcare professional's instructions. Patient Education Tailor Sit, Trunk Turn for Back Pain During Before trying these exercises, talk to your healthcare provider to make sure they are safe for you. Ask your healthcare provider how many times to do each exercise. Tailor sit Trunk turns Tailor sit This exercise makes your thigh, pelvic, and hip muscles more flexible. 1. Sit on the floor with the soles of your feet together. Your back should be straight. 2. Gently lean forward until you feel a mild stretch inyour hip and thigh muscles. Your back should remain straight. Dont push down on your legs with your hands. 3. Hold and count to 5, then relax. Trunk turns This helps make your trunk (from your shoulders to your hips) more flexible. 1. Sit on the floor with your legs crossed. Your back should be straight. 2. Put your left hand on your right knee. Rest your right hand on the floor to support yourself and help you balance. 3. Slowly twist right. To do this, turn your head, shoulders, and chest as far right as you comfortably can. Keep your hips, knees, and feet in place. 4. Hold for 5 counts. Then change sides and slowly twist left. [employer] last reviewed this educational content on 08/01/2017 [employer]. [address] [place] [address]. All rights reserved. This information is not intended as a substitute for professional medical care. Always follow your healthcare professional's instructions. Patient Education Relieving Back Pain During : Wall Stretch, Body Bend Before trying these exercises, talk to your healthcare provider to make sure they are safe for you. Ask your healthcare provider how many times to do each exercise. Wall stretch Body bend Wall stretch This strengthens and loosens the muscles in your upper back: 1. Lean against a wall with a firm pillow or rolled towel under your shoulder blades. Your feet should be about 12 inches from the wall and shoulder-width apart. Point your chin down. 2. Breathe in. Push your shoulders, neck, and head against the wall. You will feel a stretch in yourshoulders. 3. Hold for 5 counts. Then breathe out, and relax your shoulders and neck. Body bend This strengthens your back and buttocks muscles: 1. Stand with your legs shoulder-width apart. Put your hands on your upper thighs and bend your knees slightly. 2. Slowly bend forward at the hips. Push your hips back and keep your shoulders up. Make sure your back is straight. Youll feel a stretch in your upper thighs. Youll also feel your back muscles holding you in position. 3. Hold for 5 counts, then straighten. [employer] last reviewed this educational content on 08/01/201719999489-5871 [employer]. [address] [place] [address], [place] [address]. All rights reserved. This information is not intended as a substitute for professional medical care. Always follow your healthcare professional's instructions. Patient Education Back Pain During : Moving Safely Learning the proper ways to bend, lift, and carry objects may help relieve back strain. It will alsohelp you protect your back after your baby is born. Remember, if youre having trouble protecting your back, its OK to ask the people around you for help! Bending Lifting Carrying Bending To protect your back as you bend: Put 1 foot slightly in front of the other. Bend at the knees and hips, pushing your hips backward. Keep your upper body as straight as you can. Face forward. Try to keep your ears, shoulders, and hips in a line. Dont hold your breath. Lifting To lift a large object or a child: Get as close to the load as you can. Face forward, to help keep your ears and shoulders aligned. Use the muscles in your thighs and buttocks to stand up. As you lift, tighten your stomach and pelvic floor muscles. Dont hold your breath. Avoid twisting. Carrying To carry a load safely: Carry an object or child in front of you, not resting on your hip. Break up your load into 2 smaller bags, if you can. Carry 1 bag on each side to maintain balance.Or, break the load into smaller ones and take more trips. Try to tighten your stomach and pelvic floormuscles as you walk. This helps take weight off your back. [employer] last reviewed this educational content on 08/01/201719996114-6981 [employer]. [address] [place] [address], [place] [address]. All rights reserved. This information is not intended as a substitute for professional medical care. Always follow your healthcare professional's instructions. Patient Education Back Pain During : Positioning Yourself When standing, resting a foot on a low block can ease back pain. You likely position yourself differently now than you did before you were . Did you know that standing, sitting, or lying in certain ways can lead to back pain? To ease pain, use positions thatsupport your body comfortably. Tips for good posture Using good posture means holding yourself so that your spine is aligned and your muscles can work without strain. To use good posture: Raise your chest and head. Try to keep your ears lined up over your shoulders. Use your stomach muscles to pull in your stomach. This reduces the amount of weight your back must support. Keep your pelvis level. Think of your pelvis as a bowl of water that will spill if it tips too far forward or backward. Standing If you must stand for long periods, try to change positions every 15 minutes. This gives your muscles a break. When standing, also: Keep your legs slightly apart. This helps you balance your weight. Rest one foot on a book, ledge, or low stool. Every few minutes, switch legs. Wear comfortable shoes with padded soles and arch support, like athletic shoes. Sitting When sitting in a chair or car, make sure your spines lumbar curve is supported. Use a chair withlumbar support built in, or put a firm pillow against your lower back. Also try the following: Sit with your knees slightly lower than your hips. Dont cross your legs. Take deep breaths often. This helps keep your spine and stomach in the best position. Vary your activity each hour. For instance, get up from your desk and take a 5-minute walk aroundthe office. Lying down To lie safely and comfortably: Lie on your side with your knees slightly bent. This takes pressure offyour uterus and improvesblood flow to your baby. Place pillows under your abdomen and between your knees. To get out of bed, roll onto your side. Use your arms to push yourself into a seated position. Scoot to the edge of the bed and place your feet on the floor. Lean forward, then use your leg muscles to stand. Consider investing in a firm mattress. Lifting Tip to safely lift: Do not bend over from the waist to pick things upsquat down, bend your knees, and keep your back straight. [employer] last reviewed this educational content on 08/01/201719991917-3896 [employer]. [address] [place] [address], [place] [address]. All rights reserved. This information is not intended as a substitute for professional medical care. Always follow your healthcare professional's instructions. documented in this encounter Progress Notes Bonita Blanco MD - 10/20/2019 1:00 PM CDT Chief complaint: Chief Complaint Patient presents with ROUTINE VISIT 30 weeks HPI Denies contractions, vaginal bleeding, LOF, dysuria, or [...] Specified) MGMo (Not Specified) NoFHx (Not Specified) History reviewed. No pertinent surgical history. Social History Socioeconomic History Marital status: Spouse [...] file Gets together: Not on file Attends hinduism service: Not on file Active member of [...] Concern Not on file Social History Narrative Church preference - [employer] No exposure to cats Denies domestic violence or abuse Social History Substance and Sexual Activity Sexual Activity Yes Partners: Male control/protection: None Labs No new labs Radiology No new radiology. Allergies Yolis has No Known Allergies. Medications Yolis has a current medication list which includes the following prescription(s): aspirin, doxylamine-pyridoxine (vit b6), and bse04-khpi carb,pbv-dk-jls-dha. Review of Systems Constitutional: Negative for chills, fatigue and fever. HENT: Negative for congestion, rhinorrhea, sneezing and sore throat. Eyes: Negative for photophobia and visual disturbance. Respiratory: Negative for cough, chest tightness, shortness of breath and wheezing. Cardiovascular: Negative for chest pain and palpitations. Gastrointestinal: Negative for abdominal distention, abdominal pain, constipation, diarrhea, nausea and vomiting. Genitourinary: Negative for dysuria, urgency, frequency, vaginal bleeding and vaginal discharge. Skin: Negative for rash. Neurological: Negative for syncope and headaches. Hematological: Does not bruise/bleed easily. BP 104/66 (BP Location: Left arm, Patient Position: Sitting, BP CUFF SIZE: Adult Medium) | Pulse 88 | Temp 37 C (98.6 F) (Oral) | Resp 18 | Ht 5' 7" (1.702 m) | Wt 154 lb 12.8 oz (70.2 kg) | LMP 03/24/2019 (Exact Date) | BMI 24.25 kg/m Pregravid BMI: 19.7 Physical Exam Vitals reviewed. Constitutional: She is oriented to person, place, and time. Her body habitus is normal. Cardiovascular: Regular rate and rhythm. Pulmonary/Chest: Normal inspiratory effort. Abdominal: Abdomen is soft. No tenderness present. No hernia palpated or inspected. Neuro/Psychiatric: She has a normal mood and affect. She is oriented to person, place, and time. Skin: Skin normal. No rash present. Assessment/Plan See OB Summary Reviewed patient instructions and provided printed copy. Activity restrictions: As tolerated at 30w0d This visit did not involve counseling and coordination that comprised more than 50% of the visit time. Bonita Blanco MD 10/20/2019 6:08 PM documented in this encounter Plan of Treatment Date Type Specialty Care Team Description 11/03/2019 Telemedicine Visit Obstetrics & Gynecology Lucia Nichols PA-C [address] [place] [phone] Health Maintenance Due Date Last Done Comments DTaP,Tdap,and Td Vaccines (1 12/18/1998 - Tdap) PAP SMEAR 06/01/2022 06/01/2019, 03/25/2009 INFLUENZA VACCINE Completed 06/01/2019 PNEUMOCOCCAL 0-64 YEARS Aged Out No longe r eligible based COMBINED SERIES on patient's age to complete this to [facility] documented as of this encounter Procedures Procedure Name Priority Date/Time Associated Comments Diagnosis TDAP (ADACEL) Routine 10/20/2019 12:52 30 weeks gestation IMMUNIZATION PM CDT of POCT URINALYSIS W/O Routine 10/20/2019 30 weeks gestation Re sults for this SPECIFIC GRAVITY of procedure a re in the results section. documented in this encounter Results POCT URINALYSIS W/O SPECIFIC GRAVITY (10/20/2019) Pathologist Sig nature POCT PH U n/a 5 - 8 mg/dl POCT U LEUK EST n/a Negative - Negative POCT U NIT n/a Negative - Negative POCT U PROT neg Negative - Negative POCT U GLU trace Negative - Negative POCT U KETONE n/a Negative - Negative POCT U BLD n/a Negative - Negative Specimen Urine - URINE, CLEAN CATCH documented in this encounter Visit Diagnoses Diagnosis Supervision of high-risk with history of in third trimester - Primary 30 weeks gestation of state, incidental documented in this encounter Insurance Payer Benefit Plan Subscriber ID Effective Dates Phone Address Type / Group [facility] [id number] 2017-Mali [phone] [address] PPO/POS [place] [employer] t [id number] [place] [address] documented as of this encounter
--- OUTSIDE RECORDS SUMMARY | 2019-11-20 21:17 | XMS REPORT | Summary of Care ---
:1985 Author Organization [facility] Address [address] [place] [address] Care Team Providers Name Role Phone Ivanna Chadd Primary Care Provider Reason for Visit Reason Comments Assessment Encounter Details Date Type Department Care Team Description 11/18/2019 Telephone [facility] Women's Bonita Blanco MD Assessment Healthcare- [address], Suite [facility] 20 8 [address] [place] [address] [place] [address] [phone] Allergies No Known Allergiesdocumented as of this encounter (statuses as of 11/18/2019) Medications Medication Sig Dispensed Refills Start Date End Date Status [id number] Take 1 Dose by 60 Each 8 06/01/2019 Act pedro carb,phd-KR-wro-dha mouth daily. 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 [place] [id number] [phone] Health Maintenance Due Date Last Done Comments [...] Effective Dates Phone Address Type / Group [facility] [id number] 2017-Mali [phone] [address] PPO/POS [place] [employer] t 7 [id number] [place] [address] documented as of this encounter
[2019-11-20] MEDS ORDERED: NA CHLORIDE 0.9% 1,000 ML ONE (23:53)
[2019-11-21 00:08] LABS: Absolute Lymphocytes (CBC) 1.4 K/uL (0.7-4.9); Basophils % 0.8 % (0-1.3); Hematocrit 38.9 % (36.0-45.0); Lymphocytes % 22.4 % (15.3-44.8); RBC Red Blood Cell Count 4.54 M/uL (3.86-4.86)
[2019-11-21 00:20] LABS: ALT/SGPT 24 U/L (12-78); AST/SGOT 20 U/L (15-37); Albumin 2.9 g/dL (3.4-5.0); Alkaline Phosphatase 63 U/L (45-117); BUN Blood Urea Nitrogen 12 mg/dL (7-18); Bicarbonate 26 mmol/L (21-32); Bilirubin Direct 0.1 mg/dL (0-0.2); Bilirubin Total 0.3 mg/dL (0.2-1.0); Glucose Level 69 mg/dL (74-106); Lipase 114 U/L (73-393); Potassium 4.5 mmol/L (3.5-5.1); Protein, Total 6.9 g/dL (6.4-8.2); Sodium Level 139 mmol/L (136-145)
--- NOTE | 2019-11-21 00:56 | ER ---
Nurse's Notes [facility] Name: Yolis Whiteside Age: 33 yrs Sex: Female : 1985 Arrival Date: 11/20/2019 Time: 21:12 Bed 19 Private MD: Diagnosis: Cholelithiasis; related conditions, unspecified, third trimester Presentation: 11/19 21:28 Chief complaint: Patient states: RUQ pain. Partner states, "2 months ago they said she ca1 has sludge and crystal in her gall bladder but since she's they can't take it out. She's been having this pain for a while now but this past few days has been really bad". Reports N/V. Denies diarrhea. Partner states, "She's due to deliver next month and they said, they will take her gallbladder after she gives ". Coronavirus screen: Proceed with normal triage. Patient denies a cough. Patient denies shortness of breath or difficulty breathing. Patient denies measured and/or subjective temperature greater than 100.4F prior to today's visit. Patient denies travel on a cruise ship or to a country the [facility] currently lists as an affected area. Patient denies contact with known and/or suspected case of COVID-19. Ebola Screen: Patient negative for fever greater than or equal to 101.5 degrees Fahrenheit, and additional compatible Ebola Virus Disease symptoms Patient denies exposure to infectious person. Patient denies travel to an Ebola-affected area in the 21 days before illness onset. No symptoms or risks identified at this time. Initial Sepsis Screen: Does the patient meet any 2 criteria? No. Patient's initial sepsis screen is negative. Does the patient have a suspected source of infection? No. Patient's initial sepsis screen is negative. Risk Assessment: Do you want to hurt yourself or someone else? Patient reports no desire to harm self or others. Onset of symptoms was November 20, 2019. 21:28 Method Of Arrival: Wheelchair ca1 21:28 Acuity: MICHAELLE 3 ca1 Triage Assessment: 11/20 00:13 General: Appears in no apparent distress. uncomfortable, Behavior is calm, cooperative, vc appropriate for age. Pain: Complains of pain in right lower quadrant Pain currently is 6 out of 10 on a pain scale. Quality of pain is described as sharp, shooting. 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 - Social history:: Smoking status: Reported history of juuling and/or vaping. - Family history:: not pertinent. Screenin/23 00:13 Abuse screen: Denies threats or abuse. Nutritional screening: No deficits noted. vc Tuberculosis screening: No symptoms or risk factors identified. Fall Risk None identified. Assessment: 11/19 21:30 Reassessment: Patient sent to L\\T\\D at this time from [facility]. lp1 23:30 Reassessment: Patient appears in no apparent distress at this time. Patient and/or vc family updated on plan of care and expected duration. Pain level reassessed. Patient is alert, oriented x 3, equal unlabored respirations, skin warm/dry/pink. Patient cleared by Labor and delivery, no contractions, heart tones in the 140's. 23:30 General: Appears in no apparent distress. uncomfortable, Behavior is calm, cooperative, vc appropriate for age. Pain: Complains of pain in right upper quadrant and right lower quadrant. Neuro: Level of Consciousness is awake, alert, obeys commands, Oriented to person, place, time, situation, Appropriate for age. Cardiovascular: Capillary refill < 3 seconds Patient's skin is warm and dry. Respiratory: Airway is patent Respiratory effort is even, unlabored, Respiratory pattern is regular, symmetrical. GI: No signs and/or symptoms were reported involving the gastrointestinal system. GI: Abdomen is round Reports lower abdominal pain, upper abdominal pain. : No signs and/or symptoms were reported regarding the genitourinary system. Derm: Skin is intact, is healthy with good turgor, Skin temperature is warm. Musculoskeletal: Circulation, motion, and sensation intact. Range of motion: intact in all extremities. 11/20 01:06 Reassessment: Patient appears in no apparent distress at this time. Patient and/or vc family updated on plan of care and expected duration. Pain level reassessed. Patient is alert, oriented x 3, equal unlabored respirations, skin warm/dry/pink. Vital Signs: 11/19 21:28 BP 95 / 74; Pulse 72; Resp 16 S; Temp 97.8(TE); Pulse Ox 99% on R/A; Weight 71.21 kg ca1 (R); Height 5 ft. 7 in. (170.18 cm); Pain 7/10; 23:30 BP 114 / 75; Pulse 108; Resp 16; Pulse Ox 100% on R/A; vc 11/20 01:00 BP 108 / 69; Pulse 70; Resp 16; Pulse Ox 100% on R/A; vc 11/19 21:28 Body Mass Index 24.59 (71.21 kg, 170.18 cm) ca1 Vitals: 00:12 Heart Tones 140's. vc ED Course: 11/19 21:12 Patient arrived in ED. cl3 21:33 Triage completed. ca1 21:33 Arm band placed on right wrist. ca1 23:30 Jean Garland MD is Attending Physician. fabian 23:38 Hilary Gamez, YVETTE is Primary Nurse. vc 23:55 Initial lab(s) drawn, by me, sent to lab. Inserted saline lock: 20 gauge in left jp3 antecubital area, using aseptic technique. Blood collected. Patient maintains SpO2 saturation greater than 95% on room air. 23:57 Call light in reach. Side rails up X 1. Warm blanket given. Verbal reassurance given. jp3 Pulse ox on. NIBP on. 11/20 00:53 Duglas Kapoor MD is Referral Physician. fabian 01:30 No provider procedures requiring assistance completed. IV discontinued, intact, vc bleeding controlled, No redness/swelling at site. Pressure dressing applied. Administered Medications: 00:11 Drug: NS 0.9% 1000 ml Route: IV; Rate: 1 bolus; Site: left antecubital; vc 01:11 Follow up: IV Status: Completed infusion; IV Intake: 1000ml vc Intake: 01:11 IV: 1000ml; Total: 1000ml. vc Outcome: 00:54 Discharge ordered by . fabian 01:28 Discharged to home ambulatory. vc 01:28 Condition: good 01:28 Discharge instructions given to patient, Instructed on discharge instructions, follow up and referral plans. Demonstrated understanding of instructions, follow-up care. 01:29 Patient left the ED. vc Signatures: Jean Garland MD MD cha Pena, Laura, RN RN lp1 Abran Prather jp3 Noelle Osuna RN RN ca1 Doug Tabares cl3 Hilary Gamez RN RN vc Corrections: (The following items were deleted from the chart) 11/19 22:37 21:30 Reassessment: Patient sent to L\\T\\D at this time lp1 lp1
--- NOTE | 2019-11-21 00:57 | EDPHYS ---
Physician Documentation [facility] Name: Yolis Whiteside Age: 33 yrs Sex: Female : 1985 Arrival Date: 11/20/2019 Time: 21:12 Bed 19 Private MD: ED Physician Jean Garland HPI: 11/20 00:46 This 33 yrs old Black Female presents to ER via Wheelchair with complaints of fabian Gallbladder Pain. 00:46 The patient presents with abdominal pain in the epigastric area, in the upper abdomen. fabian Onset: The symptoms/episode began/occurred 1 day(s) ago. The patient presents to the emergency department with abdominal pain, of the epigastric area and right upper quadrant. The estimated gestational age is 38 weeks. course: care: private OB physician, Dr. Ruiz, Leakage of Fluid: none appreciated. Associated signs and symptoms: The patient has no apparent associated signs or symptoms. [employer]: 11/19 21:34 LMP 03/14/2019 ca1 11/20 00:46 7, Full Term 0, Premature 0, 6, Living 0 fabian Historical: - Allergies: 11/19 21:33 NKA; ca1 - Home Meds: 21:33 None [Active]; ca1 - PMHx: 21:33 None; ca1 - PSHx: 21:33 None; ca1 - Immunization history:: Adult Immunizations up to date. - Social history:: Smoking status: Reported history of juuling and/or vaping. - Family history:: not pertinent. ROS: 11/20 00:46 Constitutional: Negative for fever, chills, and weight loss, Eyes: Negative for injury, fabian pain, redness, and discharge, ENT: Negative for injury, pain, and discharge, Neck: Negative for injury, pain, and swelling, Cardiovascular: Negative for chest pain, palpitations, and edema, Respiratory: Negative for shortness of breath, cough, wheezing, and pleuritic chest pain, Back: Negative for injury and pain, : Negative for injury, bleeding, discharge, and swelling, MS/Extremity: Negative for injury and deformity, Skin: Negative for injury, rash, and discoloration, Neuro: Negative for headache, weakness, numbness, tingling, and seizure, Psych: Negative for depression, anxiety, suicide ideation, homicidal ideation, and hallucinations, Allergy/Immunology: Negative for hives, rash, and allergies, Endocrine: Negative for neck swelling, polydipsia, polyuria, polyphagia, and marked weight changes, Hematologic/Lymphatic: Negative for swollen nodes, abnormal bleeding, and unusual bruising. Abdomen/GI: Positive for abdominal pain, of the epigastric area and right upper quadrant. Exam: 00:46 Constitutional: This is a well developed, well nourished patient who is awake, alert, fabian and in no acute distress. Head/Face: Normocephalic, atraumatic. Eyes: Pupils equal round and reactive to light, extra-ocular motions intact. Lids and lashes normal. Conjunctiva and sclera are non-icteric and not injected. Cornea within normal limits. Periorbital areas with no swelling, redness, or edema. ENT: Nares patent. No nasal discharge, no septal abnormalities noted. Tympanic membranes are normal and external auditory canals are clear. Oropharynx with no redness, swelling, or masses, exudates, or evidence of obstruction, uvula midline. Mucous membranes moist. Neck: Trachea midline, no thyromegaly or masses palpated, and no cervical lymphadenopathy. Supple, full range of motion without nuchal rigidity, or vertebral point tenderness. No Meningismus. Chest/axilla: Normal chest wall appearance and motion. Nontender with no deformity. No lesions are appreciated. Cardiovascular: Regular rate and rhythm with a normal S1 and S2. No gallops, murmurs, or rubs. Normal PMI, no JVD. No pulse deficits. Respiratory: Lungs have equal breath sounds bilaterally, clear to auscultation and percussion. No rales, rhonchi or wheezes noted. No increased work of breathing, no retractions or nasal flaring. Back: No spinal tenderness. No costovertebral tenderness. Full range of motion. Female : Normal external genitalia. Skin: Warm, dry with normal turgor. Normal color with no rashes, no lesions, and no evidence of cellulitis. MS/ Extremity: Pulses equal, no cyanosis. Neurovascular intact. Full, normal range of motion. Neuro: Awake and alert, GCS 15, oriented to person, place, time, and situation. Cranial nerves II-XII grossly intact. Motor strength 5/5 in all extremities. Sensory grossly intact. Cerebellar exam normal. Normal gait. 00:46 Abdomen/GI: Inspection: gravid appearance, is noted, Bowel sounds: normal, Palpation: mild abdominal tenderness, in the epigastric area and right upper quadrant, Liver: no appreciated palpable abnormalities, Hernia: not appreciated. Vital Signs: 11/19 21:28 BP 95 / 74; Pulse 72; Resp 16 S; Temp 97.8(TE); Pulse Ox 99% on R/A; Weight 71.21 kg ca1 (R); Height 5 ft. 7 in. (170.18 cm); Pain 7/10; 23:30 BP 114 / 75; Pulse 108; Resp 16; Pulse Ox 100% on R/A; vc 11/20 01:00 BP 108 / 69; Pulse 70; Resp 16; Pulse Ox 100% on R/A; vc 11/19 21:28 Body Mass Index 24.59 (71.21 kg, 170.18 cm) ca1 MDM: 11/19 23:30 Patient medically screened. [facility] 11/20 00:50 Differential diagnosis: 38 week bowel obstruction, cholecystitis, fabian Cholelithiasis, non-specific abd pain, pancreatitis, urinary tract infection. 00:51 Data reviewed: vital signs, nurses notes, lab test result(s). Data interpreted: Cardiac fabian monitor: not applicable for this patient encounter. Pulse oximetry: on room air is 99 %. Counseling: I had a detailed discussion with the patient and/or guardian regarding: the historical points, exam findings, and any diagnostic results supporting the discharge/admit diagnosis, lab results, the need for outpatient follow up, for definitive care, a general surgeon, an OB/Gyne specialist. ED course: known gb disease, 38 week , dw patient options, pt understands, will follow dr march, return if symptoms worsen. 11/19 23:31 Order name: Basic Metabolic Panel; Complete Time: 00:25 [facility] 11/19 23:31 Order name: CBC with Diff; Complete Time: 00:25 [facility] 11/19 22: Order name: Hepatic Function; Complete Time: 00:25 [facility] 11/19 23: Order name: Lipase; Complete Time: 00:25 [facility] 11/19 23:31 Order name: IV Saline Lock; Complete Time: 23:58 [facility] 11/19 22: Order name: Labs collected and sent; Complete Time: 23:58 [facility] 11/19 23:31 Order name: Urine Dipstick-Ancillary (obtain specimen); Complete Time: 01:47 [facility] 11/19 23:31 Order name: FHT's; Complete Time: 00:11 [facility] Administered Medications: 00:11 Drug: NS 0.9% 1000 ml Route: IV; Rate: 1 bolus; Site: left antecubital; vc 01:11 Follow up: IV Status: Completed infusion; IV Intake: 1000ml vc Disposition: 11/21/19 00:54 Discharged to Home. Impression: Cholelithiasis, related conditions, unspecified, third trimester. - Condition is Stable. - Discharge Instructions: Abdominal Pain During , Biliary Colic, Adult, Third Trimester of , Itwa-wb-Mabh, Abdominal Pain During , Ehyu-sx-Ptsj. - Work release form, Medication Reconciliation Form, Thank You Letter, Antibiotic Education, Prescription Opioid Use form. - Follow up: Private Physician; When: 2 - 3 days; Reason: Recheck today's complaints, Continuance of care, Re-evaluation by your physician. Follow up: Duglas Kapoor MD; When: 5 - 6 days; Reason: Recheck today's complaints, Re-evaluation by your physician. - Problem is an acute exacerbation. - Symptoms have improved. Signatures: Dispatcher [employer] EDMS Jean Garland MD MD cha Acob, Cheryl, RN RN ca1 Calcote, Vanessa, RN RN vc Corrections: (The following items were deleted from the chart) 01:29 00:54 11/21/2019 00:54 Discharged to Home. Impression: Cholelithiasis; vc related conditions, unspecified, third trimester. Condition is Stable. Forms are Medication Reconciliation Form, Thank You Letter, Antibiotic Education, Prescription Opioid Use. Follow up: Private Physician; When: 2 - 3 days; Reason: Recheck today's complaints, Continuance of care, Re-evaluation by your physician. Follow up: Duglas Kapoor; When: 5 - 6 days; Reason: Recheck today's complaints, Re-evaluation by your physician. Problem is an acute exacerbation. Symptoms have improved. fabian
[2019-11-21 01:35] VITALS: BP 95/74; TEMP 97.8; O2SAT 99
== END 2019-11-21 01:29 | disposition home or self-care (01) ==
LOC: ER 21:10
DX: O99.613 Diseases of the digestive system complicating pregnancy, third trimester (principal); Z3A.38 38 weeks gestation of pregnancy
CPT/HCPCS: 85025; 80048; 36415; 80076; 83690; 96360; 99284; J7030

== ENCOUNTER 2019-12-30 07:21 | Day surgery (SDC) | payer BC ==
[2019-12-29 15:37] LABS: Absolute Lymphocytes (CBC) 1.5 K/uL (0.7-4.9); Basophils % 0.9 % (0-1.3); Hematocrit 51.7 % (36.0-45.0); Lymphocytes % 29.6 % (15.3-44.8); MPV 9.9 fL (7.6-11.3); RBC Red Blood Cell Count 6.02 M/uL (3.86-4.86)
--- NOTE | 2019-12-29 15:47 | RAD REPORT ---
EXAM DESCRIPTION: RAD - Chest Pa And Lat (2 Views) - 12/29/2019 3:35 pm CLINICAL HISTORY: preop Chest pain. COMPARISON: <Comparisons> FINDINGS: The lungs are clear. The heart is normal in size. No displaced fractures. IMPRESSION: No acute or concerning finding suspected.
[2019-12-29 15:57] LABS: Albumin 3.8 g/dL (3.4-5.0); Bilirubin Direct 0.2 mg/dL (0-0.2); Bilirubin Total 0.7 mg/dL (0.2-1.0); Potassium 4.4 mmol/L (3.5-5.1); Protein, Total 8.2 g/dL (6.4-8.2)
--- NOTE | 2019-12-30 07:17 | EKG ---
Test Date: 2019-12-29 Test Time: 15:14:53 Mule Operator: GIACOMO MEASUREMENT RESULTS: Intervals: Rate: 68 MT: 126 QRSD: 74 QT: 370 QTc: 393 [place]: P: 33 MT: 126 QRS: 71 T: 62 INTERPRETIVE STATEMENTS: Normal sinus rhythm Normal ECG No previous ECG available for comparison Electronically Signed On 12-30-19 07:15:41 CDT by Lavelle Miller
--- OUTSIDE RECORDS SUMMARY | 2019-12-30 07:24 | XMS REPORT | Continuity of Care Document ---
:[address] [facility] t Address [address] [place] [address] Care Team Providers Name Role Phone Gaston Blanco MD Attending Clinician 2, Lab Attending Clinician Unavailable Simone BUTLER Attending Clinician [facility] Attending Clinician Unavailable Doctor Unassigned, Name Attending Clinician Unavailable Declan Pascal MD Admitting Clinician Gaston Blanco MD Admitting Clinician Problems This patient has no known problems. Allergies, Adverse Reactions, Alerts This patient has no known allergies or adverse reactions. Medications This patient has no known medications. Procedures This patient has no known procedures. Encounters Start End Encounter Admission Attending Care Care Encounter Source Date/Time Date/Time Type Type Clinicians Facility Department ID 2019-12-13 2019-12-15 [facility] Bonita Blanco [facility] [id number] 05:18:00 09:50:00 Encounter Gaston Bonilla [id number] [place] [id number] L[place] [id number] 2019-12-11 2019-12-11 Quill Skinner 2, Ashley Lab [facility] [id number] 11:38:07 11:53:07 Visit Chad [id number] [place] [id number] Professmorgan [id number] [address] 2019-12-11 2019-12-11 Routine LUCILLE Nichols [id number] 10:39:25 11:22:27 Radha [place] [id number] Visit [place] [id number] Professio [id number] [address] 2019-12-10 2019-12-11 Hospital Bonita Blanco [facility] [id number] 21:00:00 00:00:00 Encounter Cam [place] [id number] [place] [id number] Loda [id number] 2019-12-03 2019-12-03 Routine Room, [facility] [id number] 09:52:33 11:08:02 Wh Nst [place] [id number] Visit [place] [id number] Professio [id number] [address] 2019-12-03 2019-12-03 Orders Doctor BRONWYN [id number] 00:00:00 00:00:00 Only Unassigned, LULA [id number] [facility] [id number] [id number] 2019-11-25 2019-11-25 Routine Bonita Blanco [facility] [id number] 10:13:14 11:21:38 Cam [place] [id number] Visit [place] [id number] Professio [id number] [address] 2019-11-18 2019-11-18 Telephone Bonita Blanco [facility] [id number] 00:00:00 00:00:00 Cam [place] [id number] [place] [id number] Professio [id number] [address] 2019-11-18 2019-11-18 Telephone Bonita Blanco [facility] [id number] 00:00:00 00:00:00 Cam [place] [id number] [place] [id number] Professio [phone] [address] Results This patient has no known results.
--- OUTSIDE RECORDS SUMMARY | 2019-12-30 07:27 | XMS REPORT | Summary of Care ---
:1985 Author Organization [facility] Address [address] [place] [id number] Care Team Providers Name Role Phone Chadd Goncalves Primary Care Provider Reason for Visit Auth/Cert Status Reason Specialty Diagnoses / Procedures Referred By Tita martel Referred To Contact Obstetrics Diagnoses post recovery [facility] Labor And Delivery [address] [facility] [place], [place] [address] Phone: Fax: Encounter Details Date Type Department Care Team Description 12/10/2019 - Hospital Encounter [facility] Labor and Blanco, Bonita Feldman MD 12/11/2019 Delivery Unit [address] [facility] [address] [facility] [address] [place] [address] [place] [address] Allergies No Known Allergiesdocumented as of this encounter (statuses as of 12/11/2019) Medications Medication Sig Dispensed Refills Start Date End Date Status [id number] Take 1 Dose by 60 Each 8 06/01/2019 Act pedro carb,yeg-VZ-bzb-dha mouth daily. 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) 35 mg iron-1 [...] as of this encounter (statuses as of 12/11/2019) Active Problems Problem Noted Date uterine contractions 12/01/2019 Variable heart rate decelerations, antepartum Supervision of high-risk with history of abo rtion in third 08/27/2019 trimester History of spontaneous 06/01/2019 Nausea and vomiting during prior to 22 weeks gestation 06/01/2019 Estimated Date of Delivery Comments Yes 12/29/2019 Based on last menstr ual period of 03/24/2019 (Exact Date) documented as of this encounter (statuses as of 12/11/2019) Resolved Problems Problem Noted Date Resolved Date Threatened , antepartum 06/15/2019 08/27/19 20 BV (bacterial vaginosis) 06/15/2019 07/02/2019 Supervision of high risk in first trimester 201808/27/2019 36 weeks gestation of 06/01/2019 09/18/19 20 documented as of this encounter (statuses as of 12/11/2019) Immunizations Name Administration Dates Next Due Influenza [...] been in contact with No / Unsure 12/03/2019 9:52 AM CDT someone who was confirmed or suspected to have Coronavirus / COVID-19? documented as of this encounter Last Filed Vital Signs Vital Sign Reading Time Taken Comments Blood Pressure 111/74 12/10/2019 11:11 PM CDT Pulse 68 12/10/2019 11:11 PM CDT Temperature 36.4 C (97.6 F) 12/10/2019 11:11 PM CDT Respiratory Rate 18 12/10/2019 9:20 PM CDT Oxygen Saturation 100% 12/10/2019 11:11 PM CDT Inhaled Oxygen Concentration - - Weight 74.1 kg (163 lb 4.8 oz) 12/10/2019 9:20 PM CDT Height 170.2 cm (5' 7") 12/10/2019 9:20 PM CDT Body Mass Index 25.58 12/10/2019 9:20 PM CDT documented in this encounter Discharge Instructions Celine Corbett RN - 12/10/2019Preterm Labor (36 weeks and before): 1. Drink at least 10-12 glasses of water daily. 2. When resting or sleeping, stay off your back as much as possible. Use pillows for extra support. 3. Be sure to empty your bladder frequently at least every 2 hours. 4. No sexual intercourse or orgasm until checking with your doctor. 5. No tampons or douching until checking with your doctor. 6. Return to Labor and Delivery if you have any of the followin. Tightening of the uterus (contractions) 6 or more per hour. 2. Periodlike cramping. 3. Low back pain. 4. Pelvic pressure or aching thighs. 5. Abdominal cramping with or without diarrhea. 6. Vaginal spotting or bleeding with any of the above symptoms. 7. Leaking of fluid from your vagina. Term Labor (37+ weeks): Return to Labor and Delivery/ Center if: 1. Your contractions become more regular, at least every 5-6 minutes apart for one hour after walking and drinking a large glass of water. 2. Your bag of water starts leaking or you have a gush of water from your vagina. 3. If you are not sure if your water has broken: 1. Go to the bathroom and empty your bladder. 2. Put on a pad. If it is wet within hour, you may be leaking from your bag of water. You should come to the hospital to be checked right away. 3. Note the color and odor of the fluid. 4. Your babys movements have decreased or if your baby is not moving. 5. You have vaginal bleeding as heavy as a period. Decreased Movement: 1. Your baby should move at least 10 times in 2 hrs. 2. Keep a record of your babys movements on the Kick Count sheet provided 3. If you feel your baby is not moving as much as usual, do the followin. Drink a large glass of water. 2. Make sure you have eaten a meal recently. 3. Lie on your left side and count the babys movements. 4. If you do not have at least 10 movements in 2 hours, you should be seen as soon as possible in Labor and Delivery, or call your clinic, whichever is closer. 5. IF YOUR BABYS MOVEMENTS ARE MUCH SLOWER THAN NORMAL, OR ABSENT, AND YOU ARE WORRIED, DO NOT WAIT AN ENTIRE DAY. IT IS BETTER TO BE REASSURED THAN TO FIND A PROBLEM WITH YOUR BABY THAT COULD HAVE BEEN AVOIDED! Urinary Tract Infections: 1. Drink plenty of fluids, at least 10-12 glasses of water daily. 2. Have your prescription filled today. 3. Take all of the medication prescribed, even if you are feeling better. 4. Empty your bladder often at least every 2 hours. 5. Be sure to wipe from front to back after urinating. 6. Call your clinic if: 1. You have a fever of 100.4 F by mouth after taking your temperature twice, 4 hours apart. 2. You see blood in your urine. 3. You are unable to urinate. 4. You have severe pain when you urinate. 7. Avoid alcohol, soft drinks and drinks with caffeine such as teas and coffee during this treatment. Bleedin. It is normal to have some red, pink, or brown spotting after a vaginal exam. 2. [employer], light red and brownish spotting is not unusual, especially later in the . 3. However, if heavy bleeding is present: a. Note the amount with the number of pads saturated. b. Note the color of the bleeding. c. Note any pain associated with the bleeding. d. Call Labor and Delivery or your clinic immediately. Fever: 1. Call your clinic if you have a fever of 100.4 F by mouth after taking your temperature twice, 4 hours apart. 2. Do not take any ejzf-nlo-yhxrpyb medications for an illness unless you have been instructed to doso by your physician or nurse. You should only take medicines on the list of safe medicines given to you at your clinic. Do not take more than the recommended doses. High Blood Pressure: Return to Labor and Delivery if you have: 1. Swelling in your face, puffiness around your eyes, more than slight swelling of your hands, or excessive or sudden swelling of your feet or ankles. 2. Sudden weight gain (more than 4 pounds in a week). 3. Throbbing headaches that wont go away, even after taking rduj-xbn-ksblruh medicines as instructed by your care provider. 4. Changes in vision, including blurry vision, a sensation of flashing lights or spots, or temporaryloss of vision. 5. Severe pain or tenderness in your upper stomach area. This may include nausea and vomiting. documented in this encounter Plan of Treatment Date Type Specialty Care Team Description 12/11/2019 Routine Visit Obstetrics & Radha Nichols, Gynecology CARRIE [address] [place] [phone] 12/11/2019 Plane Tableman Visit Phlebotomy 2, [facility] Health Maintenance Due Date Last Done Comments Depression Screening 1999 PAP SMEAR 06/01/2022 06/01/2019, 03/25/2009 DTaP,Tdap,and Td Vaccines (2 10/19/2029 10/20/2019 - Td) INFLUENZA VACCINE Completed 06/01/2019 PNEUMOCOCCAL 0-64 YEARS Aged Out No longe r eligible based COMBINED SERIES on patient's age to complete this to pic documented as of this encounter Results Not on filedocumented in this encounter Insurance Payer Benefit Plan Subscriber ID Effective Dates Phone Address Type / Group BS [facility] [id number] 2017-Mali [phone] [address] PPO/POS [place] [employer] [id number] [place] [address] documented as of this encounter
--- OUTSIDE RECORDS SUMMARY | 2019-12-30 07:28 | XMS REPORT | Summary of Care ---
:1985 Author Organization [facility] Address [address] [place] [id number] Care Team Providers Name Role Phone Chadd Goncalves Primary Care Provider Reason for Visit Reason Comments ROUTINE VISIT Auth/Cert Status Reason Specialty Diagnoses / Procedures Referred By Tita martel Referred To Contact Phlebotomy Diagnoses High-risk , third trimester Adc Pob Lab Draw Procedures [facility] Office [address] , [address] [place] [address] Phone: Fax: Encounter Details Date Type Department Care Team Description 12/11/2019 Routine [facility] Radha Nichols, High-risk , third trimester (Primary Dx); Visit Healthcare- [facility] 37 weeks gestation of [address], [address] [facility] [address] [place] [id number] Allergies No Known Allergiesdocumented as of this encounter (statuses as of 12/11/2019) Medications Medication Sig Dispensed Refills Start Date End Date Status [id number] Take 1 Dose by 60 Each 8 06/01/2019 Act pedro carb,yyv-OS-fzl-dha mouth daily. 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) 35 mg iron-1 [...] been in contact with No / Unsure 12/11/2019 10:47 AM CDT someone who was confirmed or suspected to have Coronavirus / COVID-19? documented as of this encounter Last Filed Vital Signs Vital Sign Reading Time Taken Comments Blood Pressure 89/65 12/11/2019 10:47 AM CDT Pulse 74 12/11/2019 10:47 AM CDT Temperature 36.6 C (97.8 F) 12/11/2019 10:47 AM CDT Respiratory Rate 16 12/11/2019 10:47 AM CDT Oxygen Saturation - - Inhaled Oxygen Concentration - - Weight 74.4 kg (164 lb) 12/11/2019 10:47 AM CDT Height 170.2 cm (5' 7") 12/11/2019 10:47 AM CDT Body Mass Index 25.69 12/11/2019 10:47 AM CDT documented in this encounter Patient Instructions Patient InstructionsRadha Burch MA - 12/11/2019 11:00 AM CDT Patient Education Kick Counts Its normal to [...] Count each movement until the baby has [id number]. This can take from 20 minutes to [...] and your baby moves fewer than 10times [id number] Your baby moves much less often than on thedays before. You have not felt your baby move all day. [employer] last reviewed this educational content on 05/31/201719996723-2830 [employer]. [address] [place] [address], [place] [address]. All rights reserved. This information is not intended as a substitute for professional medical care. Always follow your healthcare professional's instructions. Patient Education Labor Induction Labor induction is a way to help get your labor started. This can protect your health and your babys, too. Ways to induce labor Your healthcare provider can get your labor started by using any of 3 methods or a combination of them. Here are some common treatments: Prostaglandin.A medicine that may be given as a pill, capsule, or vaginal suppository. It softens,thins, and opens the cervix. This is called cervical ripening. Your healthcare provider may also usea Santos catheter or a double balloon catheter. Your healthcare provider inserts the catheter intoyour cervix to mechanically dilate it and cause the release of natural prostaglandins. Pitocin (oxytocin). A medicine your healthcare provider gives youthrough an IV (intravenous) line.You may get it within 4 to 24 hours after your healthcare provider gives you prostaglandin. Pitocin helps start contractions. Its always given in the hospital. Rupturing the membrane. A procedure in which your healthcare provideruses a small tool to break your bag of water. Healthcare providers perform this proceduremore often in women who have given before. And its always done in the hospital. This procedure needs the cervix to be dilated enough to allow the procedure and the baby's head to be down, close to the cervix. Reasons for inducing labor There are reasons that your healthcare provider will decide to induce labor, including the following: When the health of the mother or fetus is at risk by continuing the . These conditions include preeclampsia, poor growth, low amniotic fluid, infection of the membranes (chorioamnionitis), ruptured bag of water, and certain diseases,likediabetes. Elective after 39 weeks for nonmedical reasons likeliving far from the hospital What to expect Prostaglandin may be given in the hospital. monitoring is needed after placement. Other methods of inducing labor are done in the hospital. Youll need to stay there until you give . Your healthcare provider may attach monitors to your belly to measure contractions and help make sure yourbaby has no problems. No matter how your healthcare provider induces labor, afew factors may affect how long it takes you to give . These include how long it takes for your cervix to thin and open, and when contractions begin. Give yourself time Even though inducing labor gets the process started, you still may need to wait. Mothers who have labor induced most often give within a day or so. But it can take as long as a few days to give . With labor induction, you may have a greater chance of: A section (surgical delivery) An infection A longer hospital stay Uterine rupture, although rare , although extremely rare [employer]) reviewed this educational content on 03/31/2017 [employer]. [address] [place] [address]. All rights reserved. This information is not intended as a substitute for professional medical care. Always follow your healthcare professional's instructions. Patient Education Recognizing Labor The beginning of labor is the beginning of . Youll start to feel strong contractions. Thats when the muscles of your uterus tighten up to help push your baby out during . Yes, labor has probably started Signs of labor include: Your contractions are getting stronger and more painful instead of weaker. Youll probably feelthem throughout your whole uterus. Your contractions are regular. This means that you feel them about every 5 to 10 minutes. And they are getting closer together. You have pink-colored or blood-streaked fluid from your vagina. You feel that the baby has "dropped" lower in your pelvis Your water breaks. It may be a gush or a slow trickle of clear fluid from your vagina. No, its probably not real labor Signs of false labor include: Your contractions arent regular or strong. You feel the contractions only in your lower uterus. Your contractions go away when you walk or change position. Your contractions go away after drinking fluids. When to call your healthcare provider Call your healthcare provider or clinic right away if you notice any of these signs: Fluid from your vagina, with or without contractions. Bleeding heavy enough that you need a sanitary pad. You dont feel your baby moving as much as before. NOTE: Contractions are timed by both of these measures: The length of each contraction from its start to its finish. How far apart the contractions arethe time between the start of one contraction and the start of the next contraction. [employer]) reviewed this educational content on 03/31/2017 [employer]. [address] [place] [address]. All rights reserved. This information is not intended as a substitute for professional medical care. Always follow your healthcare professional's instructions. Patient Education Stages of Labor Labor has 3 stages. Your healthcare provider may talk about the progress of your labor with certain words. One of these is your babys position. Another is your babysstation. And the effacement and dilation of your cervix will be noted. Read below to learn about these terms and the 3 stages of labor. Your baby moves into position Position is your babys placement inyour uterus. Your baby may be facing left or right. He or she may be head first or feet first. Station refers to how far your baby has moved down intoyour pelvic cavity. First stage of labor During the first stage of labor, contractions of the uterus help your cervix thin (efface). They also help it widen (dilate). This will help your baby pass through the canal (vagina). At first your contractions will not come that often or last that long. But as time passes, they will come more often, they may be more painful, and they will last longer. They will last about 30 to 60 seconds each. The first stage of labor lasts until the cervix is fully dilated. Second stage of labor When your cervix is fully dilated, the second stage of labor begins. In this stage, you will have stronger contractions of your uterus that will help your baby move down the canal. They may happen every 2 to 5minutes. They may last from 45 to 90 seconds each. Your healthcare provider will ask you to push with each contraction. Try to rest between the contractions if you can. Your baby is delivered at the end of this stage of labor. Third stage of labor The third stage of labor comes after your baby is born. This is when the afterbirth (placenta) comesout ofyour uterus. Your uterus will continue tocontract. But the contractionsare much milder than before. [employer] last reviewed this educational content on 03/31/201719997660-0559 [employer]. [address] [place] [address], [place] [address]. All rights reserved. This information is not intended as a substitute for professional medical care. Always follow your healthcare professional's instructions. Patient Education and Childbirth: What to Bring to the Hospital Youre likely feeling anxious as your neptali approaches. This is normal. To give yourselfsome peace of mind, pack a bag ahead of time. Do this about one month ahead of your estimated delivery date. Here is a list of things to remember: Personal care items, like a toothbrush, hair brush, lip balm, lotion, and shampoo Eyeglasses (if you wear them) Nightgown (if you plan to breastfeed, pack one that allows for nursing) Nursing bra if you plan to breastfeed Bathrobe and slippers Many hospitals provide maternity underwear, but you may want to bring underwear that can be soiled because you will have bleeding after delivery Comfortable clothes for you to wear home, like sweat pants, yoga pants, or other stretchable clothes, because your prepregnancy clothes may not fit after delivery of your baby Clothes for your baby to wear home Personal music player and headphones Camera with new batteries or utility bill complaints investigator Coins for vending machines Telephone numbers of people to call after the Cell phone and utility bill complaints investigator Insurance information and any other paperwork needed for your hospital stay A list of baby names you are considering An infant, rear-facing car seat for bringing home your baby (this is required by law) Add anything else that you dont want to forget: Jerardo last reviewed this educational content on 05/31/201719992440-1014 [employer]. [address] [place] [address], [place] [address]. All rights reserved. This information is not intended as a substitute for professional medical care. Always follow your healthcare professional's instructions. documented in this encounter Progress Notes Radha Nichols PA-C - 12/11/2019 11:00 AM CDT Chief complaint: Chief Complaint Patient presents with ROUTINE VISIT HPI Yolis Whiteside is a 33 year old female @ 37w3d coming in for PN visit. Denies contractions, [...] file Gets together: Not on file Attends tenriism service: Not on file Active member of [...] Concern Not on file Social History Narrative Anabaptist preference - Denominational No exposure to cats Denies domestic violence or abuse Social History Substance and Sexual Activity Sexual Activity Yes Partners: Male control/protection: None Labs none Radiology none Allergies Yolis has No Known Allergies. Medications Yolis has a current medication list which includes the following prescription(s): aspirin, doxylamine-pyridoxine (vit b6), and qfd68-ogdd carb,pqx-zs-kkt-dha. Review of Systems Constitutional: Negative for appetite [...] not nervous/anxious. Endocrine: Negative for hair loss. BP (!) 89/65 (BP Location: Left arm, Patient Position: Sitting, BP CUFF SIZE: Adult Medium) | Pulse74 | Temp 36.6 C (97.8 F) (Oral) | Resp 16 | Ht 5' 7" (1.702 m) | Wt 164 lb (74.4 kg) | LMP03/24/2019 (Exact Date) | BMI 25.69 kg/m Pregravid BMI: 19.7 Physical Exam Vitals [...] SEE OB SUMMARY Return to clinic in 1 weeks. Discussed treatment options. Reviewed patient instructions and provided printed copy. Activity restrictions: As tolerated This visit did not involve counseling and coordination that comprised more than 50% of the visit time. Radha Nichols PA-C 12/11/2019 2:15 PM documented in this encounter Plan of Treatment Date Type Specialty Care Team Description 12/21/2019 Routine Obstetrics & Blanco, Bonita Feldman MD Visit Gynecology [address] [place] [address] DR. Wheat [place], [place] [address] [phone] Health Maintenance Due Date Last Done Comments Depression Screening 1999 PAP SMEAR 06/01/2022 06/01/2019, 03/25/2009 DTaP,Tdap,and Td Vaccines (2 10/19/2029 10/20/2019 - Td) INFLUENZA VACCINE Completed 06/01/2019 PNEUMOCOCCAL 0-64 YEARS Aged Out No longe r eligible based COMBINED SERIES on patient's age to complete this to pic documented as of this encounter Procedures Procedure Name Priority Date/Time Associated Comments Diagnosis POCT URINALYSIS W/O Routine 12/11/2019 10:49 AM 37 weeks gesta tion Results for this SPECIFIC GRAVITY CDT of procedure a re in the results section. documented in this encounter Results POCT URINALYSIS W/O SPECIFIC GRAVITY (12/11/2019 10:49 AM CDT) Pathologist Sig nature POCT PH U n/a [...] documented in this encounter Visit Diagnoses Diagnosis High-risk , third trimester - P rimary 37 weeks gestation of state, incidental documented in this encounter Insurance Payer Benefit Plan Subscriber ID Effective Dates Phone Address Type / Group [facility] [id number] 2017-Mali [phone] [address] PPO/POS [place] [employer] t 7 [id number] [place] [address] documented as of this encounter
--- OUTSIDE RECORDS SUMMARY | 2019-12-30 07:28 | XMS REPORT | Summary of Care ---
:1985 Author Organization [facility] Address [address] [place] [address] Care Team Providers Name Role Phone Chadd Goncalves Primary Care Provider Reason for Visit Reason Comments LAB WORK Auth/Cert Status Reason Specialty Diagnoses / Procedures Referred By Tita martel Referred To Contact Phlebotomy Diagnoses High-risk , third trimester [facility] Pob Lab Draw Procedures [facility] Building [address] [place] [address] , [address] [place] [address] Phone: Fax: Encounter Details Date Type Department Care Team Description 12/11/2019 Try On Baster Visit [facility] Radha Nichols PA-C [address] [place] [address] [address] [place] [address] High-insurance risk analyst Office 2, [facility] Lab , third Building Phlebotomy trimeste r Lab Professional Office Building [address] [place] [address] , [address] [place] [address] Allergies No Known Allergiesdocumented as of this encounter (statuses as of 12/11/2019) Medications Medication Sig Dispensed Refills Start Date End Date Status [id number]-rvov Take 1 Dose by 60 Each 8 06/01/2019 Act pedro carb,egi-NS-osi-dha mouth daily. 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) 35 mg iron-1 [...] & Blanco, Bonita Feldman MD Visit Gynecology [address] [place] [address] [address]. [address] [place], [place] [address] [phone] Name Type Priority Associated Diagnoses Date/Ti me CBC WITH DIFF LAB Routine High-risk , 2019 11:49 AM CDT third trimester CBC WITH DIFFERENTIAL LAB Routine High-risk , 12/11/2019 11:49 AM CDT third trimester Health Maintenance Due Date Last Done Comments Depression Screening 1999 PAP SMEAR 06/01/2022 06/01/2019, 03/25/2009 DTaP,Tdap,and Td Vaccines (2 10/19/2029 10/20/2019 - Td) INFLUENZA VACCINE Completed 06/01/2019 PNEUMOCOCCAL 0-64 YEARS Aged Out No longe r eligible based COMBINED SERIES on patient's age to complete this to pic documented as of this encounter Results Not on filedocumented in this encounter Visit Diagnoses Diagnosis High-risk , third trimester documented in this encounter Insurance Payer Benefit Plan Subscriber ID Effective Dates Phone Address Type / Group [facility] [id number] 2017-Mali [phone] [address] PPO/POS [place] [employer] t [id number] [place] [address] documented as of this encounter
--- OUTSIDE RECORDS SUMMARY | 2019-12-30 07:29 | XMS REPORT | Summary of Care ---
:1985 Author Organization [facility] - [facility] Address [address] [place] [id number] Care Team Providers Name Role Phone Ivanna Chadd Primary Care Provider Reason for Referral (Routine) Status Reason Specialty Diagnoses / Referred By Referred To Procedures Contact Contact New Request Diagnoses Full-term premature rupture of membranes with onset of labor within 24 hours of rupture 37 weeks gestation of Normal vaginal delivery History of spontaneous Bonita Blanco MD Lam, Vien Cam, MD Supervision of h igh-risk with history of in third trimester [address] [place] [address] Procedures DISCHARGE FOLLOW-UP: PRIVATE PHYSICIAN DR. DR. Oates [address] [place], [place] [address] [place], [place] Phone: [phone] Phone: Fax: Reason for Visit Auth/Cert Status Reason Specialty Diagnoses / Procedures Referred By C ontact Referred To Contact Obstetrics Diagnoses NICKI BEYER [facility] Labor And Delivery [address] [place], [place] [address] Phone: Fax: Encounter Details Date Type Department Care Team Description 12/13/2019 - Hospital Encounter ADC Labor and Bonita Blanco MD [address] [place] [address] [address]. [address] [place] [address] Normal vaginal 12/15/2019 Delivery Unit AdKasey velazquez MD [address] [place] [address] Dr. [address] [place] [address] delivery [address] [place] [address] Allergies No Known Allergiesdocumented as of this encounter (statuses as of 12/15/2019) Medications Medication Sig Dispensed Refills Start Date End Date Status vitamin Take 1 tablet 100 tablet 3 12/15/2019 Active w/FA by mouth tabletIndications: daily. Full-term premature rupture of membranes with onset of labor within 24 hours of rupture, 37 weeks gestation of , Normal vaginal delivery, History of spontaneous , Supervision of high-risk with history of in third trimester docusate calcium Take 1 capsule 60 capsule 1 12/15/2019 Active 240 mg by mouth once capsuleIndications daily as : Full-term needed for premature rupture Constipation. of membranes with onset of labor within 24 hours of rupture, 37 weeks gestation of , Normal vaginal delivery, History of spontaneous , Supervision of high-risk with history of in third trimester ferrous sulfate Take 1 tablet 60 tablet 2 12/15/2019 Active 325 mg (65 mg by mouth 2 iron) (two) times tabletIndications: daily. Full-term premature rupture of membranes with onset of labor within 24 hours of rupture, 37 weeks gestation of , Normal vaginal delivery, History of spontaneous , Supervision of high-risk with history of in third trimester ibuprofen 600 mg Take 1 tablet 30 tablet 1 12/15/2019 Active tabletIndications: by mouth every Full-term 6 (six) hours premature rupture as needed of membranes with (Pain). Take onset of labor with food or within 24 hours of milk. rupture, 37 weeks gestation of , Normal vaginal delivery, History of spontaneous , Supervision of high-risk with history of in third trimester [id number] Take 1 Dose by 60 Each 8 06/01/2019 12/15/2019 Di scontinued carb,[id number]-dh mouth daily. a 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) 35 mg iron-1 mg -50 mg-300 mg combo pack aspirin 81 mg EC Take 1 tablet 30 tablet 8 06/16/2019 12/15/19 20 Discontinued tabletIndications: by mouth Supervision of daily. high risk in first trimester doxylamine-pyridox Take 1 tablet 120 tablet 3 06/01/201912/14 Discontinued ine, vit B6, by mouth (DICLEGIS) 10-10 SEE-INSTRUCTIO mg per NS. tabletIndications: Nausea and vomiting during prior to 22 weeks gestation documented as of this encounter (statuses as of 12/15/2019) Active Problems Problem Noted Date Normal vaginal delivery 12/14/2019 ROM (rupture of membranes), premature 12/13/2019 37 weeks gestation of 12/13/2019 uterine contractions 12/01/2019 Variable heart rate decelerations, antepartum Supervision of high-risk with history of abo rtion in third 08/27/2019 trimester History of spontaneous 06/01/2019 Nausea and vomiting during prior to 22 weeks gestation 06/01/2019 Estimated Date of Delivery Comments Yes 12/29/2019 Based on last menstr ual period of 03/24/2019 (Exact Date) documented as of this encounter (statuses as of 12/15/2019) Resolved Problems Problem Noted Date Resolved Date Threatened , antepartum 06/15/2019 08/27/19 20 BV (bacterial vaginosis) 06/15/2019 07/02/2019 Supervision of high risk in first trimester 201808/27/2019 36 weeks gestation of 06/01/2019 09/18/19 20 documented as of this encounter (statuses as of 12/15/2019) Immunizations Name Administration Dates Next Due Influenza [...] been in contact with No / Unsure 12/13/2019 7:10 AM CDT someone who was confirmed or suspected to have Coronavirus / COVID-19? documented as of this encounter Last Filed Vital Signs Vital Sign Reading Time Taken Comments Blood Pressure 99/53 12/15/2019 2:30 AM CDT Pulse 58 12/15/2019 2:30 AM CDT Temperature 36.8 C (98.2 F) 12/15/2019 2:30 AM CDT Respiratory Rate 18 12/15/2019 2:30 AM CDT Oxygen Saturation 100% 12/15/2019 2:30 AM CDT Inhaled Oxygen Concentration - - Weight 74.4 kg (164 lb) 12/13/2019 7:10 AM CDT Height 170.2 cm (5' 7") 12/13/2019 7:10 AM CDT Body Mass Index 25.69 12/13/2019 7:10 AM CDT documented in this encounter Discharge Summaries Bonita Blanco MD - 12/15/2019 7:30 AM CDT PP D/C SUMMARY ADMIT DATE: 12/13/2019 DISCHARGE DATE: 12/15/2019 ADMIT ATTENDING: Bonita Blanco MD ATTENDING MD AT DISCHARGE: Bonita Blanco MD REASON FOR ADMISSION: PROM at 37 wks FINAL DIAGNOSIS: S/P Vaginal Delivery SECONDARY DIAGNOSIS: Principal Problem: Normal vaginal delivery (12/14/2019) POA: No Active Problems: ROM (rupture of membranes), premature (12/13/2019) POA: Yes 37 weeks gestation of (12/13/2019) POA: Yes PRINCIPAL PROCEDURE: Cephalic vaginal delivery ADDITIONAL PROCEDURES: None SIGNIFICANT LAB/X-RAYS: WBC x10^3 (/CMM) Date Value 03/25/2009 6.1 WBC (10*3/L) Date Value 12/14/2019 15.88 (H) 12/13/2019 6.29 12/11/2019 7.83 HGB Date Value 12/14/2019 11.3 g/dL (L) 12/13/2019 12.2 g/dL 12/11/2019 13.0 g/dL 03/25/2009 13.3 G/DL HCT (%) Date Value 12/14/2019 34.3 (L) 12/13/2019 36.1 12/11/2019 39.0 03/25/2009 41.0 PLT x10^3 (/CMM) Date Value 03/25/2009 156 PLT (10*3/L) Date Value 12/14/2019 104 (L) 12/13/2019 111 (L) 12/11/2019 130 (L) HOSPITAL COURSE: Briefly, Yolis Whiteside is a 33 year old who was admitted to [facility] on 12/13/2019 for delivery due to PROM at 37 wks. She underwent a Cephalic vaginal delivery. She was ambulating, tolerating a regular diet with good pain control on day # 1. The patient is medically stable for discharge home to the care of her family with care instructions reviewed and with home meds prescribed. She is to follow-up in clinic as directed. CONDITION: Good DIET: Regular ACTIVITY: Physical activities as tolerated. Pelvic rest x 6-8 weeks . DISCHARGE MEDICATIONS: Yolis Whiteside Home Medication Instructions LYNSEY:[id number] Printed on:12/15/19729 Medication Information docusate calcium 240 mg capsule Take 1 capsule by mouth once daily as needed for Constipation. ferrous sulfate 325 mg (65 mg iron) tablet Take 1 tablet by mouth 2 (two) times daily. ibuprofen 600 mg tablet Take 1 tablet by mouth every 6 (six) hours as needed (Pain). Take with food or milk. vitamin w/FA tablet Take 1 tablet by mouth daily. WOUND CARE: The patient was instructed to keep delivery lacerations (if any) clean and dry with soap and water in shower, dry gently with clean towel. She was instructed to return to ER if Temp > 101F, foul-smelling vaginal discharge, headache unresolved with pain medications, visual disturbances including double or blurry vision, seeing spots, upper abdominal pain, or vaginal bleeding greater than 1 pad perhour. Pelvic rest 4-6 weeks, and no heavy lifting. DISCHARGE: Home FOLLOW-UP APPOINTMENT: With [facility] clinic in 4 weeks for check. Bonita Blanco MD 12/15/2019 7:30 AM documented in this encounter Discharge Instructions InstructionsEsther Pedersen RN - 12/15/2019 Patient Discharge Instructions Discharge date: 12/15/2019 Procedure(s): Discharge Orders Regular Diet; Texture: Regular. Texture Regular. Diabetic: No Discharge Condition - GOOD Discharge Condition: GOOD Discharge Activity: - Ambulate with Pelvic Rest x 6 weeks DISCHARGE FOLLOW-UP: PRIVATE PHYSICIAN Order Comments: PP check When: 1 Month Patient Discharge Instructions - Vaginal Delivery Order Comments: Return to ER if Temp > 100.4 F, headache unresolved with pain medications, visual disturbances including double or blurry vision, seeing spots, or upper abdominal pain. Pelvic rest 4 to 6 weeks, and no heavy lifting. Follow instructions as indicated below: 1. The medication that was used will be acting in your system for the next 24 hours, so you might feel a little drowsy, with impaired judgment and or motor function. This feeling should go wear off. Because the medication is still in your system for the next 24 hours you SHOULD NOT: Drive a car, operate machinery or power tool. Drink any alcohol beverages (including beer or wine). Make any important decisions or sign any legal documents. 2. You should rest the remainder of the day and not engage in any physical activity. Move slowly today. After lying down, sit on the edge of the bed for a moment before standing. YOU ARE RESPONSIBLEFOR HAVING SOMEONE AT HOME WITH YOU DURING THE AFTERNOON AND NIGHT IMMEDIATELY FOLLOWING YOUR SURGERY. Patient should cough and deep breathe every 2-4 hours while awake to avoid respiratory complications. 4. Lifting: {IP DISCHARGE INSTRUCTIONS LIFTIN::"No medical restrictions"} 5. Weight: In general, sudden weight gains or losses should be reported to your provider. Cardiac patients should weigh daily and notify their provider for a weight gain of 3 pounds per day or 5 pounds per week. 6. Tobacco Avoidance: Follow recommendations below 7. Because the medications used could procedure some residual nausea and vomiting after you go home,you should eat lightly today, starting with clear liquids (broth, soft drinks, apple juice, jello) and toast or crackers, progressing to bland solid foods and then to your normal diet as tolerated, unle ss otherwise stated by your surgeon. If you get sick, wait a couple of hours and then begin to eat. After 24 hours the nausea should be gone. 8. You may experience some pain and your physician will advise you on what to take for discomfort. This should be taken as directed. If the pain is not relieved, contact your physician. You may alsohave a sore throat from the airway that was in place. You may uses lozenges, throat spray (such as C hloraseptic), or warm salt water gargles for symptomatic relief. 9. If you feel warm, take your temperature. If it is 101 degrees or above call your physician. 10. If you are unable to urinate within five hours after your procedure, call your physician. 11. The type of surgery performed will determine how much bleeding (if any) to expect. Normally, some spotting might occur. If your dressing pad becomes saturated, notify your physician. Elevate surgical site, if applicable, to reduced swelling and pain. 12. Wound/dressing care: Tips on preventing a surgical site infection.. Dont smoke. It is best to quit at least 30 days before surgery, but quitting after surgery is also helpful. If you are diabetic, keep your blood sugar well controlled. WASH YOUR HANDS. Keep your wound clean and remember to wash your hands before and after contact with the area. All health care workers should also wash their hands or use an alcohol based hand rub prior to examining you. If antibiotics are prescribed, take them as directed. Finish the entire course of antibiotics. Call your doctor if you have signs of infection: ? Increased tenderness at the surgical site ? Red streaks or increased redness of the area ? Bad-smelling discharge from the incision ? Fever of 101F or higher ? General tired feeling that doesnt improve 13. Other discharge instructions: {DC IP DISCHARGE INSTRUCTIONS OTHER:06424} 14. Special Instructions: Take Home Medications These are medications ordered for you by your healthcare provider. Do not take any other medications or supplements unless advised by your healthcare provider. Current Discharge Medication List START taking these medications Details docusate calcium 240 mg capsule Take 1 capsule by mouth once daily as needed for Constipation. Qty: 60 capsule, Refills: 1 Associated Diagnoses: Full-term premature rupture of membranes with onset of labor within 24 hours of rupture; 37 weeks gestation of ; Normal vaginal delivery; History of spontaneous ; Supervision of high-risk with history of in third trimester ferrous sulfate 325 mg (65 mg iron) tablet Take 1 tablet by mouth 2 (two) times daily. Qty: 60 tablet, Refills: 2 Associated Diagnoses: Full-term premature rupture of membranes with onset of labor within 24 hours of rupture; 37 weeks gestation of ; Normal vaginal delivery; History of spontaneous ; Supervision of high-risk with history of in third trimester ibuprofen 600 mg tablet Take 1 tablet by mouth every 6 (six) hours as needed (Pain). Take with food or milk. Qty: 30 tablet, Refills: 1 Associated Diagnoses: Full-term premature rupture of membranes with onset of labor within 24 hours of rupture; 37 weeks gestation of ; Normal vaginal delivery; History of spontaneous ; Supervision of high-risk with history of in third trimester vitamin w/FA tablet Take 1 tablet by mouth daily. Qty: 100 tablet, Refills: 3 Associated Diagnoses: Full-term premature rupture of membranes with onset of labor within 24 hours of rupture; 37 weeks gestation of ; Normal vaginal delivery; History of spontaneous ; Supervision of high-risk with history of in third trimester STOP taking these medications aspirin 81 mg EC tablet Comments: Reason for Stopping: doxylamine-pyridoxine, vit B6, (DICLEGIS) 10-10 mg per tablet Comments: Reason for Stopping: [id number] carb,[id number]-YR-[id number]-dha 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) 35 mg iron-1 mg -50 mg-300 mg combo pack Comments: Reason for Stopping: Follow-up appointments: Your follow up appointment with your surgeon has been made. Appointment Date: , Appointment Time . For questions regarding follow-up instructions call the Healthcare Hotline at or If you experience any of the following symptoms , please follow up with . For worsening symptoms/changing condition/problems or questions: Non-emergency/urgent: Call the Healthcare Hotline at or or Emergency: Go to the closest emergency room or call [phone] Translated by Date Time If you receive the patient satisfaction survey by mail please complete and return and let us know how we are doing. TOBACCO AVOIDANCE Exposure to tobacco either from smoking or from second hand (environmental) smoke or smokeless tobacco (snuff) is damaging to your health. This information is to encourage everyone to avoid tobacco exposure. It is recommended that you: ? If you smoke or use smokeless tobacco, we encourage you to quit. ? If you have already quit smoking, continue your good work! ? If you do not smoke or use smokeless tobacco, do not start. ? Avoid secondhand smoke. Additional Resources You may want to contact these organizations for further information on smoking and how to quit. [place] [employer], http://www.lungusa.org/stop-smoking/ [place] [employer], http://www.cancer.org/Healthy/StayAwayfromTobacco/index [place] [employer], http://www.heart.org/HEARTORG/GettingHealthy/QuitSmoking/Quit-Smoking_[facility] _001085_SubHomePage.jsp documented in this encounter Progress Notes Arlet Beckett - 12/14/2019 11:30 AM CDTRounding visit with patient and new baby; patient had no spiritual and/or emotional concerns; resistance welding machine operator offered and patient accepted "New Baby [place]" card. Telecasting Engineer provided support through presence and blessing/prayer card. dumKasey MD - 12/13/2019 10:06 PM CDT INTRAPARTUM PROGRESS NOTE Subjective: Yolis Whiteside is a 33 year old, , 37w5d, 12/29/2019, by Last Menstrual Period. Patient is doing well and breathing through her contractions. Declining epidural, she has received 2doses of Nubain. Objective: Labs: HCT (%) Date Value 12/13/2019 36.1 03/25/2009 41.0 HGB Date Value 12/13/2019 12.2 g/dL 03/25/2009 13.3 G/DL PLT x10^3 (/CMM) Date Value 03/25/2009 156 PLT (10*3/L) Date Value 12/13/2019 111 (L) ABO & RH (no units) Date Value 12/13/2019 O Positive Vital Signs: BP: (89-141)/(50-85) Temp: [36.3 C (97.4 F)-37.4 C (99.3 F)] Temp source: Temporal Artery (12/12 1900) Pulse: [57-135] Resp: [16-18] SpO2: [94 %-100 %] Height: [170.2 cm (5' 7")] Weight: [74.4 kg (164 lb)] BMI (calculated): [25.69] VE: 6//-2, clear fluid draining. Cephalic presentation Heart Rate: 120's, moderate variability, accels present, decels- early and lates( the lates are becoming more frequent and prolonged). CAT 2 [place]: Ctx q 2-3 mins. 180-220 MuV Assessment/Plan: 33 year-old at [id number], IOL for PROM, currently on 16mu/min of pitocin, now in active labor.GBS negative. CAT 2 tracing - Stop pitocin - Continue intrapartum resuscitation with change in maternal position, IVF and oxygen. - May restart the pitocin in 30-40mins at 8mu/min as long as strip is reassuring Kasey Pascal MD dum, Kasey Manriquez MD - 12/13/2019 7:03 PM CDT INTRAPARTUM PROGRESS NOTE Subjective: Yolis Whiteside is a 33 year old, , 37w5d, 12/29/2019, by Last Menstrual Period. Patient is coping well with her contractions. Santos catheter dislodged spontaneously Objective: Labs: HCT (%) Date Value 12/13/2019 36.1 03/25/2009 41.0 HGB Date Value 12/13/2019 12.2 g/dL 03/25/2009 13.3 G/DL PLT x10^3 (/CMM) Date Value 03/25/2009 156 PLT (10*3/L) Date Value 12/13/2019 111 (L) ABO & RH (no units) Date Value 12/13/2019 O Positive Vital Signs: BP: (91-141)/(54-85) Temp: [36.5 C (97.7 F)-37.4 C (99.3 F)] Temp source: Temporal Artery (12/12 1800) Pulse: [59-90] Resp: [16-18] SpO2: [94 %-100 %] Height: [170.2 cm (5' 7")] Weight: [74.4 kg (164 lb)] BMI (calculated): [25.69] Abdomen: Soft, no-tender gravid uterus. VE: 4/60/-3. IUPC placed Heart Rate: 120's, moderate variability, accels present, early decels. CAT 1 Assessment/Plan: 33 year-old at 37w5d, IOL for PROM, GBS negative. In early stage of labor. CAT 1. - Continue to titrate pitocin as per protocol(currently on 20mu/min) and may go up to a maax 30mu/min Kasey Pascal MD documented in this encounter Plan of Treatment Date Type Specialty Care Team Description 12/21/2019 Routine Obstetrics & Blanco, Bonita Feldman MD Visit Gynecology [address] [place] [address] DR. [address] [place] [address] [phone] Health Maintenance Due Date Last Done Comments Depression Screening 1999 PAP SMEAR 06/01/2022 06/01/2019, 03/25/2009 DTaP,Tdap,and Td Vaccines (2 10/19/2029 10/20/2019 - Td) INFLUENZA VACCINE Completed 06/01/2019 PNEUMOCOCCAL 0-64 YEARS Aged Out No longe r eligible based COMBINED SERIES on patient's age to complete this to [facility] documented as of this encounter Procedures Procedure Name Priority Date/Time Associated Comments Diagnosis CBC WITH DIFFERENTIAL Routine 12/14/2019 1:04 Re sults for this PM CDT procedure are i n the results section. CBC WITH DIFFERENTIAL Routine 12/14/2019 1:04 Re sults for this PM CDT procedure are i n the results section. COVID-19 (ID NOW Routine 12/13/2019 10:44 Results for this RAPID TESTING) AM CDT procedure are in the results section. HIV 1/2 AG-AB WITH Routine 12/13/2019 6:22 Resul ts for this REFLEX AM CDT procedure are i n the results section. CBC WITH DIFFERENTIAL JOSH 12/13/2019 6:21 Re sults for this AM CDT procedure are i n the results section. ADC OR REYES ONLY - JOSH 12/13/2019 6:21 Re sults for this RPR AM CDT procedure are i n the results section. HEPATITIS B SURFACE JOSH 12/13/2019 6:21 Resu lts for this ANTIGEN AM CDT procedure are i n the results section. CBC WITH DIFFERENTIAL JOSH 12/13/2019 6:21 Re sults for this AM CDT procedure are i n the results section. RHO (D) IMMUNE Routine 12/13/2019 6:20 Results f or this GLOBULIN AM CDT procedure are i n the results section. HB ABO GROUPING JOSH 12/13/2019 6:20 Results for this AM CDT procedure are i n the results section. ADC ONLY - FERN TEST STAT 12/13/2019 5:47 Res ults for this AM CDT procedure are i n the results section. documented in this encounter Results CBC WITH DIFFERENTIAL (12/14/2019 1:04 PM CDT) Pathologist Sig nature WBC 15.88 (H) 4.30 - 11.10 [facility] 10*3/L [facility] RBC 4.01 3.93 - 5.25 [facility] 10*6/L [facility] HGB 11.3 (L) 11.6 - 15.0 [facility] g/dL [facility] HCT 34.3 (L) 35.7 - 45.2 % [facility] MCV 85.5 80.6 - 95.5 fL [facility] MCH 28.2 25.9 - 32.8 pg [facility] MCHC 32.9 31.6 - 35.1 [facility] g/dL [facility] RDW-SD 40.7 39.0 - 49.9 fL [facility] RDW-CV 13.1 12.0 - 15.5 % [facility] PLT 104 (L) 166 - 358 [facility] 10*3/L [facility] MPV 12.7 9.5 - 12.9 fL [facility] NRBC/100 WBC 0.0 0.0 - 10.0 /100 [facility] WBCs [facility] NRBC x10^3 <0.01 10*3/L [facility] GRAN MAT (NEUT) % 81.3 % [facility] IMM GRAN % 0.60 % [facility] LYMPH % 9.7 % [facility] MONO % 7.6 % [facility] EOS % 0.5 % [facility] BASO % 0.3 % [facility] GRAN MAT x10^3(ANC) 12.92 (H) 1.88 - 7.09 [facility] 10*3/uL [facility] IMM GRAN x10^3 0.09 (H) 0.00 - 0.06 [facility] 10*3/uL [facility]ITAL [facility] LYMPH x10^3 1.54 1.32 - 3.29 [facility] 103/uL [facility] MONO x10^3 1.21 (H) 0.33 - 0.92 [facility] 10*3/uL [facility] EOS x10^3 0.08 0.03 - 0.39 [facility] 103/uL [facility] BASO x10^3 0.04 0.01 - 0.[address]/[facility] LABORATORY Specimen Blood - VENOUS Performing Organization Address City/State/Zipcode Phone Number [facility] CLIA: [id number], [address] [place], [place] [address] COVID-19 (ID NOW RAPID TESTING) (12/13/2019 10:44 AM CDT) SARS-CoV-2 Rapid ID Not Detected Not Detected [facility] Specimen Swab - NASOPHARYNGEAL SWAB Narrative Performed At [facility] COVID-19 Assay is an isothermal nucleic [facility] acid amplification test intended for the qualitative detection of nucleic acid from SARS-CoV-2 viral RNA in nasopharyngeal (LICENSED ARCHITECT) specimens. It is used under Emergency Use Authorization (EUA) by FDA. The limit of detection (LOD) of the assay is 125 Genome Equivalents/mL. A positive result is indicative of the presence of SARS-CoV-2 RNA. Clinical correlation with patient history and other diagnostic information is necessary to determine patient infection status. A negative (Not Detected) result does not preclude SARS-CoV-2 infection. In patients with clinical symptoms and other tests that are consistent with SARS-CoV-2 infection, negative results should be treated as presumptive negative and a new specimen should be tested with alternative PCR molecular test. Invalid: Please collect a new specimen for repeat patient testing if clinically indicated. Performing Organization Address City/[facility]/Zipcode Phone Number [facility] CLIA: [id number], [address] [place], [place] [address] LAB[facility]ATORY [facility] HIV 1/2 AG-AB WITH REFLEX (12/13/2019 6:22 AM CDT) Pathologist Sig nature HIV 1/2 Ag-Ab with Negative Negative [facility] Reflex HOSPITAL LABORATORY HIV Semi-quantitative 0.13 [facility] Specimen Blood - ARM, LEFT Narrative Performed At Non-reactive for HIV-1 antigen and HIV-1/HIV-2 [facility] antibodies. No laboratory evidence of HIV infection. Repeat in 2-4 weeks if acute HIV infection is suspected. Performing Organization Address City/[facility]/Zipcode Phone Number [facility] CLIA: [id number], [address] [place], [place] [address] CBC WITH DIFFERENTIAL (12/13/2019 6:21 AM CDT) Pathologist Sig nature WBC 6.29 4.30 - 11.10 [facility] 10*3/L [facility] RBC 4.28 3.93 - 5.25 [facility] 10*6/L [facility] HGB 12.2 11.6 - 15.0 [facility] g/dL [facility] HCT 36.1 35.7 - 45.2 % [facility] MCV 84.3 80.6 - 95.5 fL [facility] MCH 28.5 25.9 - 32.8 pg [facility] MCHC 33.8 31.6 - 35.1 [facility] g/dL [facility] RDW-SD 39.9 39.0 - 49.9 fL [facility] RDW-CV 13.0 12.0 - 15.5 % [facility] PLT 111 (L) 166 - 358 [facility] 10*3/L [facility] MPV 12.7 9.5 - 12.9 fL [facility] NRBC/100 WBC 0.0 0.0 - 10.0 /100 [facility] WBCs HOSPITAL LABORATORY NRBC x10^3 <0.01 10*3/L [facility] GRAN MAT (NEUT) % 67.0 % [facility] IMM GRAN % 0.60 % [facility] LYMPH % 20.7 % [facility] MONO % 10.5 % [facility] EOS % 1.0 % [facility] BASO % 0.2 % [facility] GRAN MAT x10^3(ANC) 4.22 1.88 - 7.09 [facility] 10*3/uL HOSPITAL LABORATORY IMM GRAN x10^3 0.04 0.00 - 0.06 [facility] 10*3/uL HOSPITAL LABORATORY LYMPH x10^3 1.30 (L) 1.32 - 3.29 [facility] 10*3/uL HOSPITAL LABORATORY MONO x10^3 0.66 0.33 - 0.92 [facility] 10*3/uL HOSPITAL LABORATORY EOS x10^3 0.06 0.03 - 0.39 [facility] 10*3/uL HOSPITAL LABORATORY BASO x10^3 <0.03 0.01 - 0.07 [facility] 10*3/uL HOSPITAL LABORATORY Specimen Blood - ARM, LEFT Performing Organization Address City/[facility]/Zipcode Phone Number [facility] CLIA: [id number], [address] [place], [place] [address] ADC OR REYES ONLY - RPR (12/13/2019 6:21 AM CDT) Pathologist Sig nature RPR (Qualitative) Nonreactive Nonreactive [facility] Specimen Blood - ARM, LEFT Performing Organization Address City/[facility]/Zipcode Phone Number [facility] CLIA: [id number], [address] [place], [place] [address] Hepatitis B Surface Antigen (12/13/2019 6:21 AM CDT) Pathologist Sig nature HBsAg Negative Negative [facility] LABORATORY SERVICES HBsAg 0.05 [facility] LABORATORY Semi-Quantitative SERVICES Specimen Blood - ARM, LEFT Performing Organization Address City/State/Zipcode Phone Number [facility] LABORATORY SERVICES CLIA: [id number], [address] [place] [address] RHO (D) IMMUNE GLOBULIN (12/13/2019 6:20 AM CDT) Pathologist Sig nature RHIG CANDIDATE? No- see comment LAB Comment: Patient is not a candidate for RhIg- Patient is Rh Pos itive. Performed at [facility] Laboratory Services - [facility] Blood Bank [address] [place] [address] Toll Free: [phone] CLIA No. [id number] Specimen Blood - VENOUS Performing Organization Address City/[facility] Phone Number [facility] LAB Type and Screen - ONCE JOSH (12/13/2019 6:20 AM CDT) Pathologist Sig nature ABO & RH O Positive LAB Comment: Performed at [facility] Laboratory [facility] Blood Bank [address] [place] [address] Toll Free: [phone] CLIA No. [id number] IAT Negative LAB Comment: Performed at [facility] Laboratory [facility] Blood Bank [address] [place], [place] [address] Toll Free: [phone] CLIA No. [id number] Specimen Blood - VENOUS Performing Organization Address City/[facility]/Zipcode Phone Number [facility] LAB ADC ONLY - FERN TEST (12/13/2019 5:47 AM CDT) Pathologist Sig nature Fern Test Positive [facility] Specimen Fluid - VAGINA Performing Organization Address City/[facility]/Zipcode Phone Number [facility] CLIA: [id number], [address] [place], [place] [address] [facility] [address] documented in this encounter Visit Diagnoses Diagnosis Normal vaginal delivery - Primary Normal delivery Full-term premature rupture of membranes with onset of labor within 24 hours of rupture Premature rupture of membranes in pregna [facility], unspecified as to episode of care 37 weeks gestation of state, incidental History of spontaneous Personal history of other genital system and obstetric disorders Supervision of high-risk with history of in third trimester ROM (rupture of membranes), premature Premature rupture of membranes in pregna [facility], unspecified as to episode of care documented in this encounter Administered Medications Medication Order MAR Action Action Date Dose Rate Site docusate calcium (SURFAK) capsule Given 12/15/2019 8:56 AM CDT 240 mg 240 mg 240 mg, Oral, QDAILYPRN, Starting Sat12/14/19 at 0056, Until Discontinued, Routine, Constipation Given 12/14/2019 9:13 AM CDT 240 mg LR 1000 mL + oxytocin 20 units IV New Bag 12/14/2019 1:20 AM CDT 125 mL/hr Solution at 125 mL/hr, IV Infusion, CONTINUOUS, Starting Sat12/14/19 at 0200, Until Discontinued, JOSH vitamin w/FA (PRENATABS RX) Given 12/15/2019 8:56 AM C DT 1 tablet tablet 1 tablet 1 tablet, Oral, DAILY, First dose on Sat12/14/19 at 0900, Until Discontinued Given 12/14/2019 9:13 AM CDT 1 tablet simethicone (GAS RELIEF (SIMETHICONE)) Given 12/14/2019 9:13 AM CDT 160 mg chewable tablet 160 mg 160 mg, Oral, PC+HSPRN, Starting Sat12/14/19 at 0056, Until Discontinued, Routine, Gas Medication Order MAR Action Action Date Dose Rate Site D5W-LR IV infusion 1,000 mL New Bag 12/13/2019 9:36 PM CDT 1,000 mL 125 mL/hr at 125 mL/hr, IV Infusion, CONTINUOUS, Starting 12/13/19 at 0615, Until Sat12/14/19 at 0057, Routine New Bag 12/13/2019 2:03 PM CDT 1,000 mL 125 mL/hr New Bag 12/13/2019 6:24 AM CDT 1,000 mL 125 mL/hr lactated ringers IV infusion 500 New Bag 12/13/2019 9:36 PM C DT 500 mL 999 mL/hr mL at 999 mL/hr, 500 mL, IV Infusion, PRN - SEE INSTRUCTIONS, Starting 12/13/19 at 0609, Until Sat12/14/19 at 0057, Routine New Bag 12/13/2019 2:36 PM CDT 500 mL 999 mL/hr New Bag 12/13/2019 12:45 PM CDT 500 mL 999 mL/hr nalbuphine (NUBAIN) injection 10 mg Given 12/13/2019 7:08 PM CDT 10 mg 10 mg, Intravenous, Q4HPRN, 4 doses, Starting 12/13/19 at 1039, Until Sat12/14/19 at 0057, Routine, Pain (scale 7-10) Given 12/13/2019 11:37 AM CDT 10 mg ondansetron (ZOFRAN (PF)) injection 4 mg Given 12/13/2019 11:36 AM CDT 4 mg 4 mg, Slow IV Push, Q6HPRN, Starting 12/13/19 at 1040, Until 12/14/19 at 0057, Routine, Nausea and Vomiting (N/V) oxytocin (PITOCIN) 20 New Bag 12/13/2019 10:11 AM CDT 2 celeste-unit s/min 6 mL/hr Units in lactated ringers 1,000 mL IV infusion at 2-20 mL/hr, IV Infusion, TITRATE, Starting 12/13/19 at 1110, Until 12/13/19 at 1047, Routine oxytocin (PITOCIN) 20 Rate Change 12/14/2019 12:08 AM 12 celeste-uni ts/min 36 mL/hr Units in lactated CDT ringers 1,000 mL IV infusion at 6-60 mL/hr, IV Infusion, TITRATE, Starting 12/13/19 at 1110, Until 12/14/19 at 0057, Routine Rate Change 12/13/2019 11:16 PM CDT 10 celeste-units/min 30 mL/hr Restarted 12/13/2019 10:37 PM CDT 8 celeste-units/min 24 mL/hr documented in this encounter Insurance Payer Benefit Plan Subscriber ID Effective Dates Phone Address Type / Group [facility] [id number] 2017-Mali [phone] [address] PPO/POS [place] [employer] t [id number] [place] [address] documented as of this encounter
[2019-12-30] MEDS ORDERED: Ringers Lactate 1,000 ML IV ONE (07:59)
[2019-12-30] MEDS ORDERED: CEFOXITIN/SWI 1gm 1 GM/10 ML SYR ONE (08:24)
[2019-12-30] MEDS ORDERED: KETOROLAC 30 MG/ML INJ ONE (09:05)
[2019-12-30] MEDS ORDERED: propofoL 200 MG/20 ML VIAL IV ONE (09:05)
[2019-12-30] MEDS ORDERED: LIDOCAINE 2% MPF 5 ML VIAL ONE (09:05)
[2019-12-30] MEDS ORDERED: FENTANYL CITR 100 MCG/2 ML ONE (09:05)
[2019-12-30] MEDS ORDERED: MIDAZOLAM HCL 2 MG/2 ML INJ ONE (09:05)
[2019-12-30] MEDS ORDERED: ROCURONIUM 50 MG/5 ML VIAL IV ONE (09:05)
[2019-12-30] MEDS ORDERED: dexAMETHasone 10 MG/ML VIAL ONE (09:05)
[2019-12-30] MEDS ORDERED: ONDANSETRON 4 MG/2 ML VIAL ONE ×2 (09:17→11:05)
[2019-12-30] MEDS ORDERED: GLYCOPYRROLATE 0.2 MG/ML SYR ONE (09:54)
[2019-12-30] MEDS ORDERED: NEOSTIGMINE 1 MG/ML -5 ML ONE (09:54)
--- NOTE | 2019-12-30 09:55 | P.BOP ---
Preoperative diagnosis: acute cholecystitis, RUQ abd pain, symptomatic cholelithiasis Postoperative diagnosis: same Primary procedure: Laparoscopic cholecystectomy Child Welfare Worker: LUCINA MULLINS (WATER ATTENDANT) Estimated blood loss: <10cc Specimen: gb Findings: as above Anesthesia: General Complications: None Transferred to: Recovery Room Condition: Good
[2019-12-30 10:21] VITALS: O2SAT 100
[2019-12-30] MEDS ORDERED: MEPERIDINE HCL 25 MG/ML SYR ONE (10:25)
--- NOTE | 2019-12-30 10:37 | DS ---
Diagnoses: Acute cholecystitis, right upper quadrant abdominal pain, symptomatic cholelithiasis. Procedure: Laparoscopic cholecystectomy. Disposition: Home. Activity: As tolerated. No heavy lifting Plan: Follow up in my office in 1 week call. Call for appointment [phone]. Medications: Include Tylenol No. 3 q.4 hours p.r.n. pain, Bactrim DS p.o. b.i.d. SY/LEVAR Voice ID: [id number] Report ID: [id number]
--- NOTE | 2019-12-30 10:37 | OP ---
Date of Procedure: 12/30/2019 Surgeon: Tk Burch MD Ambulance Assistant: Montserrat Gee. Preoperative Diagnoses: Acute cholecystitis, intractable right upper quadrant abdominal pain, sympto matic cholelithiasis. Postoperative Diagnoses: Acute cholecystitis, intractable right upper quadrant abdominal pain, sympt omatic cholelithiasis. Procedure Performed: Laparoscopic cholecystectomy. Estimated Blood Loss: Less than 10 mL. Specimen: Gallbladder. Anesthesia: General plus local. Finding: Inflammation of the gallbladder and as above. Indication For Procedure: This is the case of a 34-year-old patient, comes to us with recurrent epig astric right upper quadrant pain radiating to the back, diagnosed as above. The patient recently has a baby delivered uneventfully. During the , she also had same symptoms. The benefits, alt ernatives, and risks of laparoscopic, possible open cholecystectomy were fully discussed with the pat ient, which include, but not limited to infection, bleeding, damage to adjacent structures, anesthesi a complications, choledocholithiasis, bile leak, pancreatitis, [place], and . She also understands t his may not relieve any symptoms, she might need more than one surgical intervention. She understood , signed a consent. Procedure In Detail: The patient was brought to the operating room, placed in supine position. Anes thesia was done without complication. A time-out was called. Abdominal area was prepped and draped in a sterile fashion. Marcaine 0.5% was injected for local anesthetic followed by sharp incision of the skin in the infraumbilical region. Incision was carried down to fascia, which was opened under d irect vision. Peritoneum was encountered, opened under direct vision. Vicryl #1 placed inside the f ascia. Diego trocar was carefully introduced. Pneumoperitoneum was obtained. I placed 3 more troc ars, 5 mm each one of them in the epigastric area and the right upper quadrant using the same techniq ue, which consisted of local anesthetic, sharp incision of the skin, introduction of the trocars unde r direct vision. This allowed me to put a grasper in the fundus of the gallbladder, another grasper in the infundibulum, retracted the gallbladder in the inferolateral fashion exposing the triangle of Calot obtaining critical view of safety. Cystic duct and cystic artery were clearly isolated free ci rcumferentially and a connection between those and the gallbladder was clearly identified. I proceed ed to ligate those by using at least 3 clips proximal, 1 clip distal, ligation in the middle. Same w as done with the cystic artery. No bile leak, no bleeding. The gallbladder was removed from the selvin er using Bovie cauterizer and removed from the abdominal cavity using an EndoCatch through the umbili sofy incision. The area was inspected once again, no bile leak, no bleeding. At that moment, I proce eded to remove the trocars under direct vision, deflated pneumoperitoneum, closed the fascia with #1 Vicryl, irrigated subcutaneous tissue, closed with 3-0 chromic and the skin in a subcuticular fashion with 3-0 chromic and Steri-Strips on top. Sponge count, instrument counts were correct. Patient to lerated the procedure well. Patient was sent to recovery in stable condition. SY/LEVAR Voice ID: [id number] Report ID: [id number]
[2019-12-30] MEDS ORDERED: CODEINE 30MG/APAP 300MG TAB ONE (11:53)
[2019-12-30 13:37] VITALS: TEMP 97.9
[2019-12-30 13:40] VITALS: BP 118/79
== END 2019-12-30 11:55 | disposition home or self-care (01) ==
LOC: OR 07:21
PROVIDERS: ATTEND Surgery
PROC: 0FT44ZZ Resection of Gallbladder, Percutaneous Endoscopic Approach (ICD-10-PCS; principal; 2019-12-30 08:45)
DX: K80.12 Calculus of gallbladder with acute and chronic cholecystitis without obstruction (principal); Z11.59 Encounter for screening for other viral diseases; Z83.3 Family history of diabetes mellitus; Z82.49 Family history of ischemic heart disease and other diseases of the circulatory system; Z82.61 Family history of arthritis
CPT/HCPCS: 47562; 93005; 85025; 80048; 36415; 82150; 84703; 80076; 88304; 83690; 71046; U0002; J2704; J2250; J3010; J1100; J2175; J2710; J7120; J2405 ×2

== ENCOUNTER 2021-02-27 13:17 | Emergency (ER) | payer OTHER ==
--- OUTSIDE RECORDS SUMMARY | 2021-02-27 13:20 | XMS REPORT | Continuity of Care Document ---
:1985 Author Organization [facility] t Address [address] [place] [address] Care Team Providers Name Role Phone Chadd Goncalves Primary Care Physician Pob, Lab Main Attending Clinician Unavailable Gilbert BOOKER Attending Clinician Gaston Blanco MD Attending Clinician 2, Lab Attending Clinician Unavailable Simone BUTLER Attending Clinician [facility] Attending Clinician Unavailable Doctor Unassigned, Name Attending Clinician Unavailable Declan Pascal MD Admitting Clinician Gaston Blanco MD Admitting Clinician Payers Payer Name Policy Type Policy Effective Expiration Source Number Date Date [facility] [id number] 2020 [facility] - MANAGED 00:00:00 [place] Me dical MEDICAIDCOMMUNITY Branch HEALTH CHOICE MEDICAIDxxxxx04434/07/02 021-Present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 Social History Social Habit Start Date Stop Date Quantity Comments Source ASSERTION 2020-08-18 [facility] 00:00:00 [facility] Exposure to Not sure [facility] SARS-CoV-2 [facility] [place] [facility] (event) [place] Tobacco use and 2021-02-26 2021-02-26 Current user Univers ity of exposure 00:00:00 00:00:00 [facility] Alcohol intake 2021-02-26 2021-02-26 Ex-drinker [facility] 00:00:00 00:00:00 (finding) [facility] Tobacco Comment 2019-06-01 2019-06-01 Vapes Universit y of 00:00:00 00:00:00 [facility] Sex Assigned At [birth year] Universit y of 00:00:00 00:00:00 [facility] Smoking Status Start Date Stop Date Source Never smoker [facility] Medications Ordered Filled Start Stop Current Ordering Indication Dosage Frequency Signature Comments Components Source Medication Medication Date Date Medication? Clinician (SIG) Name Name aspirin 81 Yes [id number] 81mg Take 1 Univers mg EC 5-10 tablet by ity of tablet 00:00: mouth [place] 00 daily. Medical Branch aspirin 81 Yes [id number] 81mg Take 1 Univers mg EC 5-10 tablet by ity of tablet 00:00: mouth [place] 00 daily. Medical Branch aspirin 81 2020- No [id number] 81mg Take 1 Univers mg EC 5-10 02-26 tablet by ity of tablet 00:00: 00:00 mouth [place] 00 :00 daily. Medical Branch Yes [id number] 1{tbl} Take 1 Univers vitamin 6-16 tablet by ity of w/FA tablet 00:00: mouth [place] 00 daily. Medical Branch Yes [id number] 1{tbl} Take 1 Univers vitamin 6-16 tablet by ity of w/FA tablet 00:00: mouth [place] 00 daily. Medical Branch Yes [id number] 1{tbl} Take 1 Univers vitamin 6-16 tablet by ity of w/FA tablet 00:00: mouth [place] 00 daily. Medical Branch Immunizations Ordered Filled Immunization Date Status Comments Sourc e Immunization Name Name SARS-COV-2 COVID-19 2021-02-22 Completed Unive rsity of PFIZER VACCINE 00:00:00 [facility] SARS-COV-2 COVID-19 2021-02-22 Completed Unive rsity of PFIZER VACCINE 00:00:00 [facility] TDAP (ADACEL) 2019-10-20 Completed University of VACCINE 00:00:00 [facility] TDAP (ADACEL) 2019-10-20 Completed University of VACCINE 00:00:00 [facility] TDAP (ADACEL) 2019-10-20 Completed University of VACCINE 00:00:00 [facility] Influenza Virus 2019-06-01 Completed Universit y of Vaccine Quad .5 mL 00:00:00 [facility] 6+ [place] Branch Influenza Virus 2019-06-01 Completed Universit y of Vaccine Quad .5 mL 00:00:00 [facility] 6+ [place] Branch Influenza Virus 2019-06-01 Completed Universit y of Vaccine Quad .5 mL 00:00:00 [facility] 6+ [place] Branch Vital Signs Vital Name Observation Time Observation Value Comments Source Systolic blood 2021-02-23 16:13:00 105 mm[Hg] Univer sity of pressure [facility] Diastolic blood 2021-02-23 16:13:00 67 mm[Hg] Unive rsity of pressure [facility] Heart rate 2021-02-23 16:13:00 83 /min [facility] Body temperature 2021-02-23 16:13:00 36.67 [facility] Res[facility] 2021-02-23 16:13:00 18 /min [facility] Body height 2021-02-23 16:13:00 170.2 cm [facility] Body weight 2021-02-23 16:13:00 69.491 kg [facility] BMI 2021-02-23 16:13:00 23.99 kg/m2 [facility] Procedures Procedure Date / Time Performed Performing Clinician Sourc e 2 HR GLUCOSE TOLERANCE 2021-02-24 15:36:00 Shabana Hunt Unive rsity of [facility] 1 HR GLUCOSE TOLERANCE 2021-02-24 14:34:00 GilbertRiann [facility] rsity of [facility] GLUCOSE FASTING 2021-02-24 13:40:00 Shabana Hunt [place] [facility] POCT URINALYSIS W/O 2021-02-23 16:25:00 GilbertRianmeliza Oto[place] ty of [place] SPECIFIC GRAVITY [facility] Encounters Start End Encounter Admission Attending Care Care Encounter Source Date/Time Date/Time Type Type Clinicians Facility Department ID 2021-02-24 2021-02-24 Gse Mechanic Mega, Adc Lab Main [facility] 1.2.8 [id number] [id number] [facility] 08:23:49 08:38:49 Visit Shabana Hunt [id number] ity [place] [id number] [place] dical [address] 2021-02-23 2021-02-23 Routine Shabana Hunt [facility] [id number] [facility] 10:34:43 11:44:22 Cornelio 350.1.13.10 i ty of Visit [place] [place].2.686 [place] [facility] [id number] [address] 2021-02-22 2021-02-22 Telephone Shabana Hunt [facility] [id number] [facility] 00:00:00 00:00:00 Cornelio [id number] it y of [facility] 4[place]7.2.686 [facility] [phone] [address] 2019-12-13 2019-12-15 [facility] [id number] 05:18:00 09:50:00 Encounter Cam Chad [id number] [place] 4.2.7.2.686 [place] [id number] 2019-12-11 2019-12-11 Gse Mechanic 2, Adc Lab [facility] [id number] 11:38:07 11:53:07 Visit Chad 350.1.13.10 [place] 4.2.7.2.686 Professio [id number] [address] 2019-12-11 2019-12-11 Routine Simone [facility] [id number] 10:39:25 11:22:27 Radha [place] 350.1.13.10 Visit [place] 4.2.7.2.686 Professio [id number] [address] 2019-12-10 2019-12-11 Hospital Bonita Blanco [facility] 1.2.840.114 [id number] 21:00:00 00:00:00 Encounter Cam [place] [id number] [place] 4.2.7.2.686 [place] [id number] 2019-12-03 2019-12-03 Routine Room, [facility] [id number] 09:52:33 11:08:02 Wh Nst [place] 350.1.13.10 Visit [place] 4.2.7.2.686 Professio [id number] [address] 2019-12-03 2019-12-03 Orders Doctor BRONWYN 1.2.840.114 [id number] 00:00:00 00:00:00 Only Unassigned, LULA 350.1.13.10 [place] [facility] 4.2.7.2.686 [id number] 2019-11-25 2019-11-25 Routine Bonita Blanco [facility] [id number] 10:13:14 11:21:38 Cam [place] 350.1.13.10 Visit [place] 4.2.7.2.686 Professio [id number] [address] 2019-11-18 2019-11-18 Telephone Bonita Blanco [facility] 1.2.840.114 [id number] 00:00:00 00:00:00 Cam [place] 350.1.13.10 [place] 4.2.7.2.686 Professio [id number] [address] 2019-11-18 2019-11-18 Telephone Bonita Blanco [facility] 1.2.840.114 [id number] 00:00:00 00:00:00 Cam [place] 350.1.13.10 [place] 4.2.7.2.686 Professio [id number] nal [address] Results Test Description Test Time Test Comments Results Result Comments Source 2 HR GLUCOSE TOLERANCE TEST 2021-02-24 16:14:39 Test Item Value Reference Range Interpretation Comme nts GLUC 2 HR (test code = 3762583469) 117 mg/dL 70-120 Lab Interpretation (test code = 82214-5) Normal [facility] HR GLUCOSE TOLERANCE [id number] 15:22:33 Test Item Value Reference Range Interpretation Comments GLUC 1 HR (test code = 5532012988) 138 mg/dL 120-170 Lab Interpretation (test code = Normal 90547-0) [facility] [id number] 14:38:28 Test Item Value Reference Range Interpretation Comments GLU FASTNG (test code = 4291188378) 79 mg/dL 70-110 Lab Interpretation (test code = Normal 04551-8) [facility] W/O SPECIFIC [id number] 16:26:00 Test Item Value Reference Range Interpretation Comments POCT PH U (test code = 3254) N/A 5-8 POCT U LEUK EST (test code = N/A Negative - Negative 3263) POCT U NIT (test code = 3262) N/A Negative - Negative POCT U PROT (test code = 3259) trace Negative - Negative POCT U GLU (test code = 3256) Negative Negative - Negative POCT U KETONE (test code = 3258) N/A Negative - Negative POCT U BLD (test code = 3257) N/A Negative - Negative Lab Interpretation (test code = Normal 24160-2) [facility]
[2021-02-27 15:12] LABS: Absolute Lymphocytes (CBC) 1.2 K/uL (0.7-4.9); Basophils % 0.4 % (0-1.3); Lymphocytes % 15.3 % (15.3-44.8); MPV 9.7 fL (7.6-11.3)
[2021-02-27 15:28] LABS: BUN Blood Urea Nitrogen 13 mg/dL (7-18); Bicarbonate 24 mmol/L (21-32); Glucose Level 84 mg/dL (74-106); Potassium 3.9 mmol/L (3.5-5.1); Sodium Level 137 mmol/L (136-145)
[2021-02-27] MEDS ORDERED: NA CHLORIDE 0.9% 1,000 ML ONE (15:31)
--- NOTE | 2021-02-27 16:22 | RAD REPORT ---
EXAM DESCRIPTION: USExtrem Venous W Compress Bil02/27/2021 4:09 pm CLINICAL HISTORY: Leg swelling /pain COMPARISON: none FINDINGS: The common femoral, superficial femoral, popliteal and posterior tibial veins bilaterally are compressible and demonstrate augmentation. Doppler demonstrates good flow. IMPRESSION: No evidence of deep venous thrombosis involving either lower extremity.
--- NOTE | 2021-02-27 16:45 | RAD REPORT ---
EXAM DESCRIPTION: CT - Chest For Pe Angio - 02/27/2021 4:32 pm CLINICAL HISTORY: Chest pain COMPARISON: None. TECHNIQUE: Dynamically enhanced axial 3 mm thick images of the chest were obtained during administra tion of <100> mL Isovue 370 IV contrast. Coronal and oblique reconstruction images were generated and reviewed. Exam utilizes a protocol for optimal evaluation of pulmonary arterial tree. Patient's abdo men was shielded. The referring physician felt that the benefits of diagnosing life-threatening pulmo nary embolus outweighed the risks to the fetus. Maximum intensity projections 3D imaging was utilized All CT scans are performed using dose optimization technique as appropriate and may include automated exposure control or mA/KV adjustment according to patient size. FINDINGS: A pulmonary embolus is not seen. A thoracic aortic aneurysm is not noted. A pleural effusion is not seen. A pericardial effusion is not seen. A lung consolidation is not present. The left hemidiaphragm is elevated IMPRESSION: Negative for a pulmonary embolism.
--- NOTE | 2021-02-27 16:49 | EDPHYS ---
Physician Documentation [facility] Name: Yolis Whiteside Age: 35 yrs Sex: Female : 1985 Arrival Date: 02/27/2021 Time: 13:17 Bed Ultrasound Private MD: TERRANCE Physician Jean Garland HPI: 02/27 15:18 This 35 yrs old Black Female presents to ER via Wheelchair with complaints of Abdominal fabian Pain - low, breast pain. 15:41 The patient has shortness of breath at rest. Onset: The symptoms/episode began/occurred fabian 3 day(s) ago. Duration: The symptoms are intermittent, with no pattern. The patient's shortness of breath is aggravated by deep breaths. The patient or guardian reports chest pain that is located primarily in the anterior chest wall, right, right breast. The patient presents with abdominal pain in the right upper quadrant, abdominal distention in the upper abdomen, in the lower abdomen. Onset: The symptoms/episode began/occurred 3 day(s) ago. The symptoms do not radiate. Associated signs and symptoms: Pertinent positives: chest pain. Severity of symptoms: At their worst the symptoms were mild in the emergency department the symptoms are unchanged. Historical: - Allergies: 14:07 NKA; hb - Immunization history:: Adult Immunizations Client reports receiving the 1st dose of the Covid vaccine, February 23, 2021. - Family history:: not pertinent. - Social history:: Patient/guardian denies using alcohol, street drugs, IV drugs, Smoking status: Patient/guardian denies using. ROS: 15:41 Constitutional: Negative for fever, chills, and weight loss, Eyes: Negative for injury, fabian pain, redness, and discharge, ENT: Negative for injury, pain, and discharge, Neck: Negative for injury, pain, and swelling, Cardiovascular: Negative for chest pain, palpitations, and edema, Back: Negative for injury and pain, : Negative for injury, bleeding, discharge, and swelling, MS/Extremity: Negative for injury and deformity, Skin: Negative for injury, rash, and discoloration, Neuro: Negative for headache, weakness, numbness, tingling, and seizure, Psych: Negative for depression, anxiety, suicide ideation, homicidal ideation, and hallucinations, Allergy/Immunology: Negative for hives, rash, and allergies, Endocrine: Negative for neck swelling, polydipsia, polyuria, polyphagia, and marked weight changes, Hematologic/Lymphatic: Negative for swollen nodes, abnormal bleeding, and unusual bruising. 15:41 Respiratory: Positive for shortness of breath. 15:41 Abdomen/GI: Positive for abdominal pain, of the epigastric area and right upper quadrant. Exam: 15:41 Constitutional: This is a well developed, well nourished patient who is awake, alert, fabian and in no acute distress. Head/Face: Normocephalic, atraumatic. Eyes: Pupils equal round and reactive to light, extra-ocular motions intact. Lids and lashes normal. Conjunctiva and sclera are non-icteric and not injected. Cornea within normal limits. Periorbital areas with no swelling, redness, or edema. ENT: Nares patent. No nasal discharge, no septal abnormalities noted. Tympanic membranes are normal and external auditory canals are clear. Oropharynx with no redness, swelling, or masses, exudates, or evidence of obstruction, uvula midline. Mucous membranes moist. Neck: Trachea midline, no thyromegaly or masses palpated, and no cervical lymphadenopathy. Supple, full range of motion without nuchal rigidity, or vertebral point tenderness. No Meningismus. Chest/axilla: Normal chest wall appearance and motion. Nontender with no deformity. No lesions are appreciated. Cardiovascular: Regular rate and rhythm with a normal S1 and S2. No gallops, murmurs, or rubs. Normal PMI, no JVD. No pulse deficits. Respiratory: Lungs have equal breath sounds bilaterally, clear to auscultation and percussion. No rales, rhonchi or wheezes noted. No increased work of breathing, no retractions or nasal flaring. Abdomen/GI: Soft, non-tender, with normal bowel sounds. No distension or tympany. No guarding or rebound. No evidence of tenderness throughout. Back: No spinal tenderness. No costovertebral tenderness. Full range of motion. Skin: Warm, dry with normal turgor. Normal color with no rashes, no lesions, and no evidence of cellulitis. MS/ Extremity: Pulses equal, no cyanosis. Neurovascular intact. Full, normal range of motion. Neuro: Awake and alert, GCS 15, oriented to person, place, time, and situation. Cranial nerves II-XII grossly intact. Motor strength 5/5 in all extremities. Sensory grossly intact. Cerebellar exam normal. Normal gait. Psych: Awake, alert, with orientation to person, place and time. Behavior, mood, and affect are within normal limits. 15:41 Abdomen/GI: Inspection: gravid appearance, Bowel sounds: normal, Palpation: abdomen is soft and non-tender, in all quadrants, Liver: no appreciated palpable abnormalities, Hernia: not appreciated. Vital Signs: 14:05 BP 99 / 66; Pulse 82; Resp 20; Temp 97.4; Pulse Ox 100% on R/A; Pain 3/10; hb 14:22 BP 109 / 71; Pulse 80; Resp 16; Temp 97.0(TE); Pulse Ox 98% on R/A; kh1 16:50 BP 114 / 78; Pulse 75; Resp 20; Temp 97.4; Pulse Ox 100% on R/A; kh1 MDM: 14:12 Patient medically screened. fabian 15:45 Differential diagnosis: Anxiety Reaction Bronchitis anxiety, chest wall pain, hiatal fabian hernia, Myocardial Infarction pneumonia, Pulmonary Embolism. Antibiotic administration: Not indicated. HEART Score: History: Slightly Suspicious (0), Age: < or = 45 years (0), Risk Factors: No Risk Factors Known (0), Total Score = 0. The patient's Wells Deep Vein Thrombosis Score was calculated as follows: Total Score: 0. This patient was found to be at low risk for a deep vein thrombosis by using the Well's assessment criteria Total Score: 0-2 Pts- Low Risk. The patient's pulmonary embolism risk score was calculated as follows: Total Score: 0-2 points. This patient was found to be at low risk for a pulmonary embolism by using the Well's assessment criteria Total Score: 0-2 points. This patient was found to be at low risk for a pulmonary embolism by using the Well's assessment criteria. SADAF Risk Score: TOTAL SCORE = 0. Immunization status:. Data reviewed: vital signs, nurses notes, lab test result(s), radiologic studies, CT scan, ultrasound. Data interpreted: satellite project site monitor: rate is 80 beats/min, rhythm is regular, Pulse oximetry: on room air is 98 %. Counseling: I had a detailed discussion with the patient and/or guardian regarding: the historical points, exam findings, and any diagnostic results supporting the discharge/admit diagnosis, lab results, radiology results, the need for outpatient follow up, for definitive care, an OB/Gyne specialist. 02/27 14:22 Order name: Abo/rh Typing; Complete Time: 16:47 [facility] 02/27 14:22 Order name: Basic Metabolic Panel; Complete Time: 15:41 [facility] 02/27 14:22 Order name: CBC with Diff; Complete Time: 15:41 [facility] 02/27 15:15 Order name: CT Chest For PE Angio; Complete Time: 16:47 [facility] 02/27 14:22 Order name: IV Saline Lock; Complete Time: 15:04 [facility] 02/27 14:22 Order name: Labs collected and sent; Complete Time: 15:04 [facility] 02/27 14:22 Order name: NPO; Complete Time: 15:04 [facility] 02/27 14:22 Order name: FHT's; Complete Time: 16:26 [facility] 02/27 15:15 Order name: US Extremity Venous W Compression Jac; Complete Time: 16:47 [facility] Administered Medications: 15:00 Drug: NS 0.9% 1000 ml Route: IV; Rate: 1 bolus; Site: right hand; kh1 Disposition Summary: 02/27/21 16:48 Discharge Ordered Location: Home fabian Problem: new fabian Symptoms: have improved fabian Condition: Stable fabian Diagnosis - 28 weeks gestation of fabian - Abdominal pain, unspecified fabian - Pleurisy fabian Followup: fabian - With: Private Physician - When: 2 - 3 days - Reason: Recheck today's complaints, Continuance of care, Re-evaluation by your physician Followup: fabian - With: Pedrito Marquez MD - When: 2 - 3 days - Reason: Recheck today's complaints, Re-evaluation by your physician Discharge Instructions: - Discharge Summary Sheet fabian - Pleurisy fabian - Care fabian - Vaginal Bleeding During , Third Trimester fabian Forms: - Medication Reconciliation Form fabian - Thank You Letter fabian - Antibiotic Education fabian - Prescription Opioid Use fabian Signatures: Dispatcher [employer] Jean Pimentel MD MD cha Baxter, Heather, RN RN Karen Sylvester kh
--- NOTE | 2021-02-27 16:49 | ER ---
Nurse's Notes [facility] Name: Yolis Whiteside Age: 35 yrs Sex: Female : 1985 Arrival Date: 02/27/2021 Time: 13:17 Bed Ultrasound Private MD: Diagnosis: 28 weeks gestation of ;Abdominal pain, unspecified;Pleurisy Presentation: 02/27 14:05 Chief complaint: Intermittent right sided abdominal pain x 2 months. Pt is 28 weeks hb , was cleared by L\T\D. Coronavirus screen: At this time, the client does not indicate any symptoms associated with coronavirus-19. Ebola Screen: No symptoms or risks identified at this time. Risk Assessment: Do you want to hurt yourself or someone else? Patient reports no desire to harm self or others. Onset of symptoms is unknown. 14:05 Acuity: MICHAELLE 3 hb 14:05 Method Of Arrival: Wheelchair hb 16:54 Initial Sepsis Screen: Does the patient meet any 2 criteria? No. Patient's initial [facility] sepsis screen is negative. 16:55 Initial Sepsis Screen: Does the patient have a suspected source of infection? No. [facility] Patient's initial sepsis screen is negative. Triage Assessment: 14:22 General: Appears in no apparent distress. Behavior is calm, cooperative. Pain: Denies [facility] pain. GI: No deficits noted. Historical: - Allergies: 14:07 NKA; hb - Immunization history:: Adult Immunizations Client reports receiving the 1st dose of the Covid vaccine, February 23, 2021. - Family history:: not pertinent. - Social history:: Patient/guardian denies using alcohol, street drugs, IV drugs, Smoking status: Patient/guardian denies using. Screenin:24 Abuse screen: Denies threats or abuse. Nutritional screening: No deficits noted. [facility] Tuberculosis screening: No symptoms or risk factors identified. Fall Risk None identified. Assessment: 14:24 Reassessment: Patient appears in no apparent distress at this time. No changes from [facility] previously documented assessment. Patient and/or family updated on plan of care and expected duration. Pain level reassessed. 16:49 Reassessment: Patient appears in no apparent distress at this time. No changes from [facility] previously documented assessment. Patient and/or family updated on plan of care and expected duration. Pain level reassessed. Patient is alert, oriented x 3, equal unlabored respirations, skin warm/dry/pink. 16:53 GI: Bowel sounds present X 4 quads. Abd is soft and non tender X 4 quads. kh1 Vital Signs: 14:05 BP 99 / 66; Pulse 82; Resp 20; Temp 97.4; Pulse Ox 100% on R/A; Pain 3/10; hb 14:22 BP 109 / 71; Pulse 80; Resp 16; Temp 97.0(TE); Pulse Ox 98% on R/A; kh1 16:50 BP 114 / 78; Pulse 75; Resp 20; Temp 97.4; Pulse Ox 100% on R/A; kh1 ED Course: 13:17 Patient arrived in ED. am2 14:07 Triage completed. hb 14:12 Jean Garland MD is Attending Physician. [facility] 14:22 Karen Vasquez is Primary Nurse. kh1 14:22 Arm band placed on right wrist. kh1 15:04 Abo/rh Typing Sent. kh1 15:04 Basic Metabolic Panel Sent. kh1 15:04 CBC with Diff Sent. kh1 16:09 US Extremity Venous W Compression Jac In Process Unspecified. EDMS 16:32 CT Chest For PE Angio In Process Unspecified. EDAL 16:48 Pedrito Marquez MD is Referral Physician. [facility] 16:49 Lipase Sent. 1 16:49 LFT's Sent. kh1 16:53 No provider procedures requiring assistance completed. Inserted saline lock: 20 gauge kh1 in right hand, using aseptic technique. 16:55 Patient has correct armband on for positive identification. kh1 17:06 IV discontinued, intact, bleeding controlled, No redness/swelling at site. Pressure kh1 dressing applied. Administered Medications: 15:00 Drug: NS 0.9% 1000 ml Route: IV; Rate: 1 bolus; Site: right hand; [facility] Outcome: 16:48 Discharge ordered by . [facility] 17:06 Discharged to home ambulatory. kh1 17:06 Condition: good 17:06 Discharge instructions given to patient. 17:07 Patient left the ED. 1 Signatures: Dispatcher [employer] EDMS Jean Garland MD MD cha Baxter, Heather, YVETTE RN Erika Mendosa am2 Karen Vasquez kh1
[2021-02-27 17:21] VITALS: BP 114/78; TEMP 97.4; O2SAT 100
== END 2021-02-27 17:07 | disposition home or self-care (01) ==
LOC: ER 13:17
DX: O26.892 Other specified pregnancy related conditions, second trimester (principal); Z3A.28 28 weeks gestation of pregnancy
CPT/HCPCS: 85025; 80048; 36415; 86900; 86901; 71275; 93970; 99284; Q9967; J7030